=== PATIENT | female | born 1960 | race Hispanic/Latino ===

== ENCOUNTER 2018-03-16 07:20 | Day surgery (SDC) | payer OTHER ==
--- OUTSIDE RECORDS SUMMARY | 2018-03-16 07:27 | XMS REPORT | Clinical Summary ---
:1960 Author Organization [facility] Address [address] [place] [address] Care Team Providers Name Role Phone Chau Greer MD Primary Care Provider Allergies Active Allergy Reactions Severity Noted Date Comments Penicillins Other (See Comments) 05/20/2011 Swelling of tongue/throat Current Medications Prescription Sig. Disp. Refills Start Date End Date Status carvedilol (COREG) Take 6.25 mg 1 03/27/2016 Active 6.25 MG tablet by mouth 2 (two) times a day. glimepiride (AMARYL) 4 Take 4 mg by 1 04/22/2016 Active MG tablet mouth once daily. lisinopril-hydrochloro Take 1 tablet 1 03/27/2016 Active thiazide by mouth once (PRINZIDE,ZESTORETIC) daily. 20-12.5 mg per tablet metFORMIN XR Take 750 mg by 1 04/22/2016 Active (GLUCOPHAGE-XR) 750 MG mouth once 24 hr tablet daily. omeprazole (PriLOSEC) Take 20 mg by Active 20 MG capsule mouth daily. levothyroxine Take 1 tablet 09/09/2017 Active (SYNTHROID, LEVOXYL) by mouth 112 mcg tablet daily. levothyroxine Take 150 mcg 1 04/22/2016 09/30/2017 Discontinued (SYNTHROID, by mouth once LEVOTHROID) 150 MCG daily. tablet quinapril-hydrochlorot Take 1 tablet 2 02/09/2016 05/15/2017 Discontinued hiazide (ACCURETIC) by mouth once 20-12.5 mg per tablet daily. Active Problems Problem Noted Date High cholesterol 05/15/2017 Cirrhosis 05/17/2016 Screening for cancer 05/17/2016 Esophageal varices 05/17/2016 Vitamin D deficiency 05/17/2016 Diabetes mellitus, type II 08/11/1996 Encounters Date Type Specialty Care Team Description 09/30/2017 Office Visit Gastroenterology Caty Patel Cirrhosis of liver with ascites, unspecified hepatic cirrhosis type (Primary Dx); JORGE L Lenz ARMAS (nonalcoholic steatohepatitis); Esophageal varices without bleeding, unspecified esophageal varices type; Cancer screening; Type 2 diabetes mellitus with complication, unspecified skilled nursing insulin use status; Vitamin D deficiency; Screening for cancer 09/10/2017 Telephone Gastroenterology Arlet Soliz, MALU 05/15/2017 Office Visit Gastroenterology Brent Gloria MD Esophageal varices without bleeding, unspecified esophageal varices type (Primary Dx); Liver cirrhosis secondary to ARMAS; Cirrhosis of liver without ascites, unspecified hepatic cirrhosis type; Screening for cancer; Vitamin D deficiency after 03/15/2017 Immunizations Name Dates Previously Given Next Due FLUCELVAX QUAD PF (0.5mL syringe) 05/17/2016 Family History Medical History Relation Name Comments Diabetes Father Breast cancer Maternal Grandmother Relation Name Status Comments Father Maternal Grandmother Social History Tobacco Use Types Packs/Day Years Used Date Never Smoker Smokeless Tobacco: Never Used Alcohol Use Drinks/Week oz/Week Comments No Sex Assigned at Date Recorded Not on file Last Filed Vital Signs Vital Sign Reading Time Taken Blood Pressure 123/69 09/30/2017 1:03 PM [employer]ACING CUTTING MACHINE OPERATOR Pulse 70 09/30/2017 1:03 PM FACING CUTTING MACHINE OPERATOR Temperature 37.1 C (98.7 F) 09/30/2017 1:03 PM FACING CUTTING MACHINE OPERATOR Respiratory Rate 18 09/30/2017 1:03 PM FACING CUTTING MACHINE OPERATOR Oxygen Saturation 98% 09/30/2017 1:03 PM FACING CUTTING MACHINE OPERATOR Inhaled Oxygen Concentration - - Weight 107 kg (235 lb 12.8 oz) 09/30/2017 1:03 PM FACING CUTTING MACHINE OPERATOR Height 167.6 cm (5' 6") 09/30/2017 1:03 PM FACING CUTTING MACHINE OPERATOR Body Mass Index 38.06 09/30/2017 1:03 PM FACING CUTTING MACHINE OPERATOR Plan of Treatment Health Maintenance Due Date Last Done Comments DIABETIC FOOT EXAM 1968 DIABETIC RETINAL EYE EXAM 1968 CERVICAL CANCER SCREENING 1979 BREAST CANCER SCREENING 2008 COLON CANCER SCREENING 2008 SHINGRIX VACCINE (#1) 2008 INFLUENZA VACCINE 03/11/2018 05/17/2016, 09/16/2013, 06/30/2012 Procedures Procedure Name Priority Date/Time Associated Comments Diagnosis PLATELET ESTIMATION Routine 09/30/2017 10:20 Results for this (NOT ORDERABLE) AM FACING CUTTING MACHINE OPERATOR procedure are in the results section. SPECIMEN INTEGRITY Routine 09/30/2017 10:20 Results for this COMPROMISED AM FACING CUTTING MACHINE OPERATOR procedure are in the results section. PROTHROMBIN TIME WITH Routine 09/30/2017 10:20 Esophageal varices Results for this INR AM FACING CUTTING MACHINE OPERATOR without bleeding, procedure are in unspecified the results esophageal varices section. type Liver cirrhosis secondary to ARMAS IMMUNOGLOBULIN G, A, M Routine 09/30/2017 10:20 Esophageal varices Results for this AM FACING CUTTING MACHINE OPERATOR without bleeding, procedure are in unspecified the results esophageal varices section. type Liver cirrhosis secondary to ARMAS COMPREHENSIVE METABOLIC Routine 09/30/2017 10:20 Esophageal varices Results for this PANEL AM FACING CUTTING MACHINE OPERATOR without bleeding, procedure are in unspecified the results esophageal varices section. type Liver cirrhosis secondary to ARMAS CBC WITH PLATELET AND Routine 09/30/2017 10:20 Esophageal varices Results for this DIFFERENTIAL AM FACING CUTTING MACHINE OPERATOR without bleeding, procedure are in unspecified the results esophageal varices section. type Liver cirrhosis secondary to ARMAS ALPHA FETOPROTEIN Routine 09/30/2017 10:20 Esophageal varices Results for this AM FACING CUTTING MACHINE OPERATOR without bleeding, procedure are in unspecified the results esophageal varices section. type Liver cirrhosis secondary to ARMAS after 03/15/2017 Results Platelet estimation (09/30/2017 10:20 AM) Platelet estimate DECREASED (A) ADEQUATE [facility] Narrative Performed At FASTING: UNKNOWN [facility] Resulting Agency Comment Performing Organization Information: Site ID: [id number] Name: [facility] Address: [address] [place] [phone] Director: Vanesa Banda MD Performing Organization Address City/State/Zipcode Phone Number [employer] [address] [address] SPECIMEN INTEGRITY COMPROMISED (09/30/2017 10:20 AM) Specimen integrity [facility] compromised Comment: II Whole blood, unspun or partially spun gel barrier tube was received more than 6 hours since collection. A false elevation of K, Phos and LD as well as a false decrease in glucose may occur due to prolonged contact with red cells. Narrative Performed At FASTING: UNKNOWN [facility] Resulting Agency Comment Performing Organization Information: Site ID: [id number] Name: [facility] Lab Address: [address] [place] [phone] Director: Dr. Juan Gil Performing Organization Address [facility] Phone Number MINDY [employer] [address] Alpha fetoprotein (09/30/2017 10:20 AM) Alpha fetoprotein 11.8 (H) ng/mL [facility] Comment: II Reference Range: <6.1 The use of AFP as a tumor marker in females is not recommended. This test was performed using the Philip Kenmare chemiluminescent method. Values obtained from different assay methods cannot be used interchangeably. AFP levels, regardless of value, should not be interpreted as absolute evidence of the presence or absence of disease. Specimen Blood Narrative Performed At FASTING: UNKNOWN [facility] Resulting Agency Comment Performing Organization Information: Site ID: [id number] Name: [facility] Lab Address: [address] [place] [phone] Director: Dr. Juan Gil Performing Organization Address [facility] Phone Number MINDY [employer] [address] Prothrombin time with INR (09/30/2017 10:20 AM) INR 1.4 (H) [facility] Comment: Reference Range 0.9-1.1 Moderate-intensity Warfarin Therapy 2.0-3.0 Higher-intensity Warfarin Therapy 3.0-4.0 Prothrombin time 14.6 (H) 9.0 - 11.5 sec [facility] Comment: For more information on this test, go to: http://education.Balaya/faq/JMC638 Specimen Blood Narrative Performed At FASTING: UNKNOWN [facility] Resulting Agency Comment Performing Organization Information: Site ID: [id number] Name: [facility] Address: [address] [place] [phone] Director: Vanesa Banda MD Performing Organization Address [facility] Phone Number [employer] [address] [address] CBC with platelet and differential (09/30/2017 10:20 AM) WBC 4.5 3.8 - 10.8 Thousand/uL [employer] RBC 2.56 (L) 3.80 - 5.10 Million/uL [facility] HGB 8.8 (L) 11.7 - 15.5 g/dL [facility] HCT 26.1 (L) 35.0 - 45.0 % [facility] MCV 102.0 (H) 80.0 - 100.0 fL [facility] MCH 34.4 (H) 27.0 - 33.0 pg [facility] MCHC 33.7 32.0 - 36.0 g/dL [facility] RDW 16.1 (H) 11.0 - 15.0 % [facility] Platelet count 70 (L) 140 - 400 Thousand/uL [employer] MPV 11.3 7.5 - 12.5 fL [facility] Neutrophils, absolute 2,799 1,500 - 7,800 cells/uL [facility] Lymphocytes, absolute 1,224 850 - 3,900 cells/uL [facility] Monocytes, absolute 311 200 - 950 cells/uL [facility] Eosinophils, absolute 149 15 - 500 cells/uL [facility] Basophils, absolute 18 0 - 200 cells/uL [facility] Neutrophils 62.2 % [facility] Lymphocytes 27.2 % [facility] Monocytes 6.9 % [facility] Eosinophils 3.3 % [facility] Basophils + RC 0.4 % [facility] Specimen Blood Narrative Performed At FASTING: UNKNOWN [facility] Resulting Agency Comment Performing Organization Information: Site ID: [id number] Name: [facility] Address: [address] [place] [phone] Director: Vanesa Banda MD Performing Organization Address City/State/Zipcode Phone Number [employer] [address] [address] Immunoglobulin G, A, M (09/30/2017 10:20 AM) IgA 712 (H) 81 - 463 mg/dL [facility] IgG 1,695 (H) 694 - 1,618 mg/dL [facility] IgM 97 48 - 271 mg/dL [facility] Specimen Blood Narrative Performed At FASTING: UNKNOWN [facility] Resulting Agency Comment Performing Organization Information: Site ID: [id number] Name: [facility] Address: [address] [place] [phone] Director: Vanesa Banda MD Performing Organization Address [facility] Phone Number [employer] [address] [address] Comprehensive metabolic panel (09/30/2017 10:20 AM) Glucose 96 65 - 99 mg/dL [facility] Comment: [facility] Fasting reference interval BUN, whole blood 23 7 - 25 mg/dL [facility] Creatinine 0.90 0.50 - 1.05 [facility] Comment: mg/dL [facility] For patients >49 years of age, the reference limit for Creatinine is approximately 13% higher for people identified as -Icelandic. EGFR Non-Afr. Icelandic 70 > OR=60 [facility] mL/min/1.73m2 [facility] EGFR 81 > OR=60 [facility] mL/min/1.73m2 [facility] BUN/creatinine ratio NOT APPLICABLE 6 - 22 (calc) [facility] Sodium 138 135 - 146 mmol/L [facility] Potassium 4.1 3.5 - 5.3 mmol/L [facility] Chloride 105 98 - 110 mmol/L [facility] CO2 21 20 - 31 mmol/L [facility] Calcium 8.7 8.6 - 10.4 mg/dL [facility] Protein 6.8 6.1 - 8.1 g/dL [facility] Albumin, S 3.3 (L) 3.6 - 5.1 g/dL [facility] Globulin, total 3.5 1.9 - 3.7 g/dL [facility] (calc) [facility] Albumin/globulin ratio 0.9 (L) 1.0 - 2.5 (calc) [facility] Total bilirubin 1.1 0.2 - 1.2 mg/dL [facility] Alkaline phosphatase 59 33 - 130 U/L [facility] AST 37 (H) 10 - 35 U/L [facility] ALT 15 6 - 29 U/L [facility] Specimen Blood Narrative Performed At FASTING: UNKNOWN [facility] Resulting Agency Comment Performing Organization Information: Site ID: [id number] Name: [facility] Address: [address] [place] [phone] Director: Vanesa Banda MD Performing Organization Address City/[facility]/Zipcode Phone Number [employer] [address] [address] after 03/15/2017 Insurance Payer Benefit Plan / Group Subscriber ID Type Phone Address TAMICA DAVEY PPO OPEN CHOICE xxxxxxxxxx PPO Home: [phone] [phone] [address] NICOLE TAVERAS [employer] Self 1960 Home: [address] [phone] [address]
[2018-03-16] MEDS ORDERED: NA CHLORIDE 0.9% 1,000 ML ONE (07:34)
[2018-03-16] MEDS ORDERED: LIDOCAINE 1% MPF 5 ML VIAL ONE (08:53)
[2018-03-16] MEDS ORDERED: PROPOFOL 200 MG/20 ML VIAL IV ONE (08:53)
--- NOTE | 2018-03-16 09:23 | ENDO RPT ---
[address], [address] EGD PROCEDURE REPORT EXAM DATE: 03/16/2018 PATIENT NAME: Zeinab Taveras MR#: [id number] BIRTHDATE: 1960 ATTENDING: Adelso James Dr STATUS: outpatient TIMBER SPOTTER: Norma Tejeda, Kathia Koenig RN, and Ezio Tejeda INDICATIONS: The patient is a 57 yr old Female here for an EGD due to esophageal varices PROCEDURE PERFORMED: EGD with biopsy MEDICATIONS: Per Anesthesia. TOPICAL ANESTHETIC: none CONSENT: The patient understands the risks and benefits of the procedure and understands that these risks include, but are not limited to: sedation, allergic reaction, infection, perforation and/or bleeding. Alternative means of evaluation and treatment include, among others: physical exam, x-rays, and/or surgical intervention. The patient elects to proceed with this endoscopic procedure. DESCRIPTION OF PROCEDURE: During intra-op preparation period all mechanical medical equipment was checked for proper function. Hand hygiene and appropriate measures for infection prevention was taken. Procedure, possible complications, and alternatives including but not limited to the possibility of bleeding, perforation, tear, infection, sepsis, need for surgery, need for blood transfusion, and anesthesia related complications were explained to the patient. After the risks, benefits and alternatives of the procedure were thoroughly explained, Informed consent was verified, confirmed and timeout was successfully executed by the treatment team. The patient was placed in the left lateral position. The patient was anesthetized with topical anesthesia. Through the anesthetized oropharyngeal area, the scope was passed without any difficulty. The [id number] ([id number]) endoscope was introduced through the mouth and advanced to the third portion of the duodenum. Retroflexed views revealed no abnormalities. The gastroscope was then slowly withdrawn and removed. Grade III varices were found in the lower esophagus. Esophageal banding was performed. Gastropathy was found in the body of the stomach. Mild gastritis was found in the antrum. With jumbo forceps, a biopsy was obtained and sent to pathology. An erosion was found in the antrum. An ulcer was found in the antrum. Duodenitis was found in the bulb and descending duodenum. Multiple ulcers were found in the bulb of the duodenum. ADVERSE EVENTS: There were no complications. IMPRESSIONS: 1. Grade III varices in the lower esophagus, s/p banding X4 2. Portal hypertensive gastropathy in the body of the stomach 3. Mild gastritis in the antrum, s/p biopsy 4. Erosion in the antrum 5. 2 mm ulcer with surrounding edema in the antrum 6. Duodenitis in the bulb and descending duodenum 7. Multiple ( 10) small 2-3 mm clean-basede ulcers in the bulb of the duodenum RECOMMENDATIONS: 1. await biopsy results 2. acid suppression therapy 3. Propanolol REPEAT EXAM: Return in 3 week(s) for EGD. Adelso James Dr eSigned: Adelso James Dr 03/16/2018 9:23 AM cc: Chau Greer CPT CODES: ICD9 CODES: PATIENT NAME: Zeinab Taveras MR#: [id number]
== END 2018-03-16 09:57 | disposition home or self-care (01) ==
LOC: OR 07:20
PROVIDERS: ATTEND Internal Medicine Gastroenterology
PROC: 0DB68ZX Excision of Stomach, Via Natural or Artificial Opening Endoscopic, Diagnostic (ICD-10-PCS; 2018-03-16)
PROC: 06L38CZ Occlusion of Esophageal Vein with Extraluminal Device, Via Natural or Artificial Opening Endoscopic (ICD-10-PCS; principal; 2018-03-16 09:15)
DX: I85.00 Esophageal varices without bleeding (principal); K74.60 Unspecified cirrhosis of liver; E11.9 Type 2 diabetes mellitus without complications; Z79.84 Long term (current) use of oral hypoglycemic drugs; E03.9 Hypothyroidism, unspecified; K76.6 Portal hypertension; K31.89 Other diseases of stomach and duodenum; K29.00 Acute gastritis without bleeding; K25.9 Gastric ulcer, unspecified as acute or chronic, without hemorrhage or perforation; K29.80 Duodenitis without bleeding; K26.9 Duodenal ulcer, unspecified as acute or chronic, without hemorrhage or perforation
CPT/HCPCS: 82962; 88305; 88312; J7030

== ENCOUNTER 2018-07-21 07:30 | Day surgery (SDC) | payer OTHER ==
--- OUTSIDE RECORDS SUMMARY | 2018-07-21 07:32 | XMS REPORT | Clinical Summary ---
:1960 Author Organization [facility] Address [address] [place] [address] Care Team Providers Name Role Phone Chau Greer MD Primary Care Provider Allergies Active Allergy Reactions Severity Noted Date Comments Penicillins Other (See Comments) 05/20/2011 Swelling of tongue/throat Medications Medication Sig Dispensed Refills Start Date End Date Status carvedilol (COREG) Take 6.25 mg 1 03/27/2016 Active 6.25 MG tablet by mouth 2 (two) times a day. glimepiride (AMARYL) Take 4 mg by 1 04/22/2016 Active 4 MG tablet mouth once daily. lisinopril-hydrochlo Take 1 tablet 1 03/27/2016 Active rothiazide by mouth once (PRINZIDE,ZESTORETIC daily. ) 20-12.5 mg per tablet metFORMIN XR Take 750 mg 1 04/22/2016 Active (GLUCOPHAGE-XR) 750 by mouth once MG 24 hr tablet daily. omeprazole Take 20 mg by 0 Active (PriLOSEC) 20 MG mouth daily. capsule levothyroxine Take 1 tablet 0 09/09/2017 Active (SYNTHROID, LEVOXYL) by mouth 112 mcg tablet daily. levothyroxine Take 150 mcg 1 04/22/2016 09/30/2017 Discontinued (SYNTHROID, by mouth once LEVOTHROID) 150 MCG daily. tablet Active Problems Problem Noted Date High cholesterol 05/15/2017 Cirrhosis 05/17/2016 Screening for cancer 05/17/2016 Esophageal varices 05/17/2016 Vitamin D deficiency 05/17/2016 Diabetes mellitus, type II 08/11/1996 Encounters Date Type Specialty Care Team Description 06/26/2018 Telephone Hepatology Nellie JeonghelMADONNA 06/15/2018 Orders Only Hepatology Brent Gloria MD 05/04/2018 Office Visit Hepatology Brent Gloria MD Cirrhosis of liver without ascites, unspecified hepatic cirrhosis type (Primary Dx); Abnormal LFTs; Obesity, unspecified classification, unspecified obesity type, unspecified whether serious comorbidity present 09/30/2017 Office Visit Gastroenterology Caty Patel Cirrhosis of liver with ascites, unspecified hepatic cirrhosis type (Primary Dx); JORGE L Lenz ARMAS (nonalcoholic steatohepatitis); Esophageal varices without bleeding, unspecified esophageal varices type; Cancer screening; Type 2 diabetes mellitus with complication, unspecified penitentiary insulin use status; Vitamin D deficiency; Screening for cancer 09/10/2017 Telephone Gastroenterology Arlet Soliz RN after 07/20/2017 Immunizations Name Dates Previously Given Next Due FLUCELVAX QUAD PF (0.5mL syringe) 05/17/2016 Family History Medical History Relation Name Comments Diabetes Father Breast cancer Maternal Grandmother Relation Name Status Comments Father Maternal Grandmother Social History Tobacco Use Types Packs/Day Years Used Date Never Smoker Smokeless Tobacco: Never Used Alcohol Use Drinks/Week oz/Week Comments No Sex Assigned at Date Recorded Not on file Job Start Date Occupation Industry Not on file Not on file Not on file Travel History Travel Start Travel End No recent travel history available. Last Filed Vital Signs Vital Sign Reading Time Taken Blood Pressure 169/76 05/04/2018 1:22 PM CDT Pulse 67 05/04/2018 1:22 PM CDT Temperature 37.1 C (98.7 F) 09/30/2017 1:03 PM ELEMENTARY MATH TUTOR Respiratory Rate 18 09/30/2017 1:03 PM ELEMENTARY MATH TUTOR Oxygen Saturation 98% 09/30/2017 1:03 PM ELEMENTARY MATH TUTOR Inhaled Oxygen Concentration - - Weight 111 kg (245 lb) 05/04/2018 1:22 PM CDT Height 167.6 cm (5' 6") 05/04/2018 1:22 PM CDT Body Mass Index 39.54 05/04/2018 1:22 PM CDT Plan of Treatment Date Type Specialty Care Team Description 07/30/2018 Office Visit Hepatology Brent Gloria MD [address] [facility] [address] [place] [address] Health Maintenance Due Date Last Done Comments DIABETIC RETINAL EYE EXAM 1960 DIABETIC FOOT EXAM 1968 HEPATITIS B VACCINES (1 of 3 - 1977 Risk 3-dose series) CERVICAL CANCER SCREENING 1979 BREAST CANCER SCREENING 2008 COLON CANCER SCREENING 2008 SHINGRIX VACCINE (1 of 2) 2008 INFLUENZA VACCINE 03/11/2018 05/17/2016, 09/16/2013, 06/30/2012 IPV VACCINES Aged Out No longer eligible based on patient's age to complete this topic MENINGOCOCCAL VACCINE Aged Out No longer eligible based on patient's age to complete this topic Procedures Procedure Name Priority Date/Time Associated Comments Diagnosis US ABDOMEN COMPLETE Routine 06/02/2018 PLATELET ESTIMATION Routine 09/30/2017 10:20 Results for this (NOT ORDERABLE) AM ELEMENTARY MATH TUTOR procedure are in the results section. SPECIMEN INTEGRITY Routine 09/30/2017 10:20 Results for this COMPROMISED AM ELEMENTARY MATH TUTOR procedure are in the results section. PROTHROMBIN TIME WITH Routine 09/30/2017 10:20 Esophageal varices Results for this INR AM ELEMENTARY MATH TUTOR without bleeding, procedure are in unspecified the results esophageal varices section. type Liver cirrhosis secondary to ARMAS IMMUNOGLOBULIN G, A, M Routine 09/30/2017 10:20 Esophageal varices Results for this AM ELEMENTARY MATH TUTOR without bleeding, procedure are in unspecified the results esophageal varices section. type Liver cirrhosis secondary to ARMAS COMPREHENSIVE METABOLIC Routine 09/30/2017 10:20 Esophageal varices Results for this PANEL AM ELEMENTARY MATH TUTOR without bleeding, procedure are in unspecified the results esophageal varices section. type Liver cirrhosis secondary to ARMAS CBC WITH PLATELET AND Routine 09/30/2017 10:20 Esophageal varices Results for this DIFFERENTIAL AM ELEMENTARY MATH TUTOR without bleeding, procedure are in unspecified the results esophageal varices section. type Liver cirrhosis secondary to ARMAS ALPHA FETOPROTEIN Routine 09/30/2017 10:20 Esophageal varices Results for this AM ELEMENTARY MATH TUTOR without bleeding, procedure are in unspecified the results esophageal varices section. type Liver cirrhosis secondary to ARMAS after 07/20/2017 Results US Abdomen Complete (06/02/2018) Narrative Performed At Platelet estimation (09/30/2017 10:20 AM ELEMENTARY MATH TUTOR) Platelet estimate DECREASED (A) ADEQUATE [employer] [place] Narrative Performed At FASTING: UNKNOWN [facility] Resulting Agency Comment Performing Organization Information: Site ID: [id number] Name: [facility] Address: [address] [place] [address] Director: Vanesa Banda MD Performing Organization Address [facility] Cent[facility] Phone Number MINDY CLEARY [place] [address] [place] [address] SPECIMEN INTEGRITY COMPROMISED (09/30/2017 10:20 AM ELEMENTARY MATH TUTOR) Specimen integrity [employer] [facility] compromised Comment: II Whole blood, unspun or partially spun gel barrier tube was received more than 6 hours since collection. A false elevation of K, Phos and LD as well as a false decrease in glucose may occur due to prolonged contact with red cells. Narrative Performed At FASTING: UNKNOWN [facility] Resulting Agency Comment Performing Organization Information: Site ID: [id number] [facility] Address: [address] [place] [id number] Director: Dr. Juan Gil Performing Organization Address [facility] Phone Number [facility] [employer] [address] Alpha fetoprotein (09/30/2017 10:20 AM ELEMENTARY MATH TUTOR) Alpha fetoprotein 11.8 (H) ng/mL [facility] Comment: II Reference Range: <6.1 The use of AFP as a tumor marker in females is not recommended. This test was performed using the Philip Anusha chemiluminescent method. Values obtained from different assay methods cannot be used interchangeably. AFP levels, regardless of value, should not be interpreted as absolute evidence of the presence or absence of disease. Specimen Blood Narrative Performed At FASTING: UNKNOWN [facility] Resulting Agency Comment Performing Organization Information: Site ID: [id number] Name: [facility] Address: [address] [place] [phone] Director: Dr. Juan Gil Performing Organization Address [facility] Centercout Phone Number [employer] [address] Prothrombin time with INR (09/30/2017 10:20 AM ELEMENTARY MATH TUTOR) INR 1.4 (H) [employer] [facility] [place] Comment: Reference Range 0.9-1.1 Moderate-intensity Warfarin Therapy 2.0-3.0 Higher-intensity Warfarin Therapy 3.0-4.0 Prothrombin time 14.6 (H) 9.0 - 11.5 sec [employer] [facility] [place] Comment: For more information on this test, go to: http://education.Redfin/faq/BOM384 Specimen Blood Narrative Performed At FASTING: UNKNOWN [facility] Resulting Agency Comment Performing Organization Information: Site ID: [id number] Name: [facility] Address: [address] [place] [phone] Director: Vanesa Banda MD Performing Organization Address City/State/Zipcode Phone Number [facility] [employer] [place] [address] [place] [address] CBC with platelet and differential (09/30/2017 10:20 AM ELEMENTARY MATH TUTOR) WBC 4.5 3.8 - 10.8 Thousand/uL [employer] [facility] [place] RBC 2.56 (L) 3.80 - 5.10 Million/uL [employer] [place] HGB 8.8 (L) 11.7 - 15.5 g/dL [employer] [facility] [place] HCT 26.1 (L) 35.0 - 45.0 % [employer] [place] MCV 102.0 (H) 80.0 - 100.0 fL [employer] [place] MCH 34.4 (H) 27.0 - 33.0 pg [employer] [place] MCHC 33.7 32.0 - 36.0 g/dL [employer] [place] RDW 16.1 (H) 11.0 - 15.0 % [employer] [place] Platelet count 70 (L) 140 - 400 Thousand/uL [employer] [place] MPV 11.3 7.5 - 12.5 fL [employer] [facility] [place] Neutrophils, absolute 2,799 1,500 - 7,800 cells/uL [employer] [facility] [place] Lymphocytes, absolute 1,224 850 - 3,900 cells/uL [employer] [place] Monocytes, absolute 311 200 - 950 cells/uL [employer] [facility] [place] Eosinophils, absolute 149 15 - 500 cells/uL [employer] [place] Basophils, absolute 18 0 - 200 cells/uL [employer] [place] Neutrophils 62.2 % [employer] [place] Lymphocytes 27.2 % [employer] [place] Monocytes 6.9 % [employer] [facility] [place] Eosinophils 3.3 % [employer] [place] Basophils + RC 0.4 % [employer] [facility] [place] Specimen Blood Narrative Performed At FASTING: UNKNOWN [facility] Resulting Agency Comment Performing Organization Information: Site ID: [id number] Name: [facility] Address: [address] [place] [phone] Director: Vanesa Banda MD Performing Organization Address City/[facility]/Zipcode Phone Number [employer] [address] [address] Immunoglobulin G, A, M (09/30/2017 10:20 AM ELEMENTARY MATH TUTOR) IgA 712 (H) 81 - 463 mg/dL [employer] [facility] [place] IgG 1,695 (H) 694 - 1,618 mg/dL [employer] [facility] [place] IgM 97 48 - 271 mg/dL [employer] [facility] [place] Specimen Blood Narrative Performed At FASTING: UNKNOWN [facility] Resulting Agency Comment Performing Organization Information: Site ID: [id number] Name: [facility] Address: [address] [place] [phone] Director: Vanesa Banda MD Performing Organization Address [facility] Centercode Phone Number [employer] [address] [address] Comprehensive metabolic panel (09/30/2017 10:20 AM ELEMENTARY MATH TUTOR) Glucose 96 65 - 99 mg/dL [employer] Comment: [place] Fasting reference interval BUN, whole blood 23 7 - 25 mg/dL [facility] [place] Creatinine 0.90 0.50 - 1.05 [employer] Comment: mg/dL [place] For patients >49 years of age, the reference limit for Creatinine is approximately 13% higher for people identified as -Greenlandic. EGFR Non-Afr. [place]ic 70 > OR=60 [employer] [facility] mL/min/1.73m2 [place] EGFR 81 > OR=60 [facility] mL/min/1.73m2 [place] BUN/creatinine ratio NOT APPLICABLE 6 - 22 (calc) [employer] [facility] [place] Sodium 138 135 - 146 mmol/L [facility] [place] Potassium 4.1 3.5 - 5.3 mmol/L [facility] [place] Chloride 105 98 - 110 mmol/L [facility] [place] CO2 21 20 - 31 mmol/L [facility] [place] Calcium 8.7 8.6 - 10.4 mg/dL [facility] [place] Protein 6.8 6.1 - 8.1 g/dL [facility] [place] Albumin, S 3.3 (L) 3.6 - 5.1 g/dL [facility] [place] Globulin, total 3.5 1.9 - 3.7 g/dL [employer] [facility] (calc) [place] Albumin/globulin ratio 0.9 (L) 1.0 - 2.5 (calc) [facility] [place] Total bilirubin 1.1 0.2 - 1.2 mg/dL [facility] [place] Alkaline phosphatase 59 33 - 130 U/L [facility] [place] AST 37 (H) 10 - 35 U/L [facility] [place] ALT 15 6 - 29 U/L [facility] [place] Specimen Blood Narrative Performed At FASTING: UNKNOWN [facility] Resulting Agency Comment Performing Organization Information: Site ID: [id number] Name: [facility] Address: [address] [place] [address] Director: Vanesa Banda MD Performing Organization Address City/State/Zipcode Phone Number [employer] [place] [address] [place] [address] after 07/20/2017 Insurance Payer Benefit Plan / Group Subscriber ID Type Phone Address [employer]ET[employer] AET[employer] PPO OPEN CHOICE xxxxxxxxxx PPO Advance Directives Patient has advance care planning documents on file. For more information, please contact:Raymundo Russo[address] [place] [address]
[2018-07-21] MEDS ORDERED: NA CHLORIDE 0.9% 1,000 ML ONE (07:47)
[2018-07-21] MEDS ORDERED: LIDOCAINE 1% MPF 5 ML VIAL ONE (09:52)
[2018-07-21] MEDS ORDERED: PROPOFOL 200 MG/20 ML VIAL IV ONE ×2 (09:52)
--- NOTE | 2018-07-21 11:47 | ENDO RPT ---
[address], [address] EGD PROCEDURE REPORT EXAM DATE: 07/21/2018 PATIENT NAME: Zeinab Taveras MR#: [id number] BIRTHDATE: 1960 ATTENDING: Adelso James Dr STATUS: outpatient BACK SEAM STITCHER: Coty Lazaro RN and Norma Tejeda INDICATIONS: The patient is a 57 yr old Female here for an EGD due to surveillance PROCEDURE PERFORMED: EGD with biopsy and EGD with banding MEDICATIONS: Per Anesthesia. TOPICAL ANESTHETIC: none CONSENT: The patient understands the risks and benefits of the procedure and understands that these risks include, but are not limited to: sedation, allergic reaction, infection, perforation and/or bleeding. Alternative means of evaluation and treatment include, among others: physical exam, x-rays, and/or surgical intervention. The patient elects to proceed with this endoscopic procedure. DESCRIPTION OF PROCEDURE: During intra-op preparation period all mechanical medical equipment was checked for proper function. Hand hygiene and appropriate measures for infection prevention was taken. Procedure, possible complications, and alternatives including but not limited to the possibility of bleeding, perforation, tear, infection, sepsis, need for surgery, need for blood transfusion, and anesthesia related complications were explained to the patient. After the risks, benefits and alternatives of the procedure were thoroughly explained, Informed consent was verified, confirmed and timeout was successfully executed by the treatment team. The patient was placed in the left lateral position. The patient was anesthetized with topical anesthesia. Through the anesthetized oropharyngeal area, the scope was passed without any difficulty. The Pentax [id number] ([id number]) endoscope was introduced through the mouth and advanced to the second portion of the duodenum. Retroflexed views revealed no abnormalities. The gastroscope was then slowly withdrawn and removed. Four columns of grade II to III varices were found in the lower esophagus. Banding was performed X5. Portal hypertensive gastropathy was found in the body of the stomach. Moderate gastritis was found in the antrum. Multiple with surrounding edema were found in the antrum. Duodenitis was found in the bulb and descending duodenum. Multiple (6) small 2-4 mm clean-based ulcers in the bulb and descending duodenum. ADVERSE EVENTS: There were no complications. IMPRESSIONS: 1. Four columns of grade II to III varices in the lower esophagus, s/p banding X5 2. Portal hypertensive gastropathy in the body of the stomach 3. Moderate gastritis in the antrum, s/p biopsies 5. Duodenitis in the bulb and descending duodenum 6. Multiple (6) small 2-4 mm clean-based ulcers in the bulb and descending duodenum RECOMMENDATIONS: 1. await biopsy results 2. acid suppression therapy 3. Propanolol or Coreg REPEAT EXAM: Return in 1 month(s) for EGD. Adelso James Dr eSigned: Adelso James Dr 07/21/2018 10:15 AM cc: Chau Greer CPT CODES: ICD9 CODES: PATIENT NAME: Zeinab Taveras MR#: [id number]
== END 2018-07-21 10:45 | disposition home or self-care (01) ==
LOC: OR 07:30
PROVIDERS: ATTEND Internal Medicine Gastroenterology
PROC: 0W3P8ZZ Control Bleeding in Gastrointestinal Tract, Via Natural or Artificial Opening Endoscopic (ICD-10-PCS; 2018-07-21)
PROC: 0DB68ZX Excision of Stomach, Via Natural or Artificial Opening Endoscopic, Diagnostic (ICD-10-PCS; principal; 2018-07-21 09:30)
DX: K76.6 Portal hypertension (principal); K74.60 Unspecified cirrhosis of liver; E11.9 Type 2 diabetes mellitus without complications; Z79.84 Long term (current) use of oral hypoglycemic drugs; E03.9 Hypothyroidism, unspecified; Z88.0 Allergy status to penicillin; I85.10 Secondary esophageal varices without bleeding; K29.70 Gastritis, unspecified, without bleeding; K29.80 Duodenitis without bleeding; K26.9 Duodenal ulcer, unspecified as acute or chronic, without hemorrhage or perforation
CPT/HCPCS: 82962; 88305; 88312; J2704; J7030

== ENCOUNTER 2018-11-17 07:00 | Day surgery (SDC) | payer OTHER ==
--- OUTSIDE RECORDS SUMMARY | 2018-11-17 07:04 | XMS REPORT | Clinical Summary ---
:1960 Author Organization [facility] Address [address] [place] [address] Care Team Providers Name Role Phone Chau Greer MD Primary Care Provider Allergies Active Allergy Reactions Severity Noted Date Comments Penicillins Other (See Comments) 05/20/2011 Swelling of tongue/throat Medications Medication Sig Dispensed Refills Start Date End Date Status carvedilol (COREG) Take 6.25 mg by 1 03/27/2016 Active 6.25 MG tablet mouth 2 (two) times a day. glimepiride (AMARYL) 4 Take 4 mg by 1 04/22/2016 Active MG tablet mouth once daily. lisinopril-hydrochloro Take 1 tablet 1 03/27/2016 Active thiazide by mouth once (PRINZIDE,ZESTORETIC) daily. 20-12.5 mg per tablet metFORMIN XR Take 750 mg by 1 04/22/2016 Active (GLUCOPHAGE-XR) 750 MG mouth once 24 hr tablet daily. omeprazole (PriLOSEC) Take 20 mg by 0 Active 20 MG capsule mouth daily. levothyroxine Take 1 tablet 0 09/09/2017 Active (SYNTHROID, LEVOXYL) by mouth daily. 112 mcg tablet riFAXimin (XIFAXAN) Take 1 tablet 60 tablet 11 09/10/2018 10/10/2018 550 mg tablet (550 mg total) by mouth 2 (two) times a day for 30 days. Active Problems Problem Noted Date High cholesterol 05/15/2017 Cirrhosis 05/17/2016 Screening for cancer 05/17/2016 Esophageal varices 05/17/2016 Vitamin D deficiency 05/17/2016 Diabetes mellitus, type II 08/11/1996 Encounters Date Type Specialty Care Team Description 09/10/2018 Office Visit Hepatology Brent Gloria MD Cirrhosis of liver without ascites, unspecified hepatic cirrhosis type (HCC) (Primary Dx); Esophageal varices without bleeding, unspecified esophageal varices type (HCC); Other fatigue; Encephalopathy 07/22/2018 Documentation Hepatology Bettye Chester MA appointment reschedule (Provider inpatient, left multiple voicemails for patient to callback for reschedule.///CBR) 06/26/2018 Telephone Hepatology Jenni Jeong MA 06/15/2018 Orders Only Hepatology Brent Gloria MD 05/04/2018 Office Visit Hepatology Brent Gloria MD Cirrhosis of liver without ascites, unspecified hepatic cirrhosis type (Primary Dx); Abnormal LFTs; Obesity, unspecified classification, unspecified obesity type, unspecified whether serious comorbidity present after 11/16/2017 Immunizations Name Dates Previously Given Next Due [...] Vital Sign Reading Time Taken Blood Pressure 159/72 09/10/2018 10:50 AM [employer] Pulse 75 09/10/2018 10:50 AM [employer] Temperature - - Respiratory Rate - - Oxygen Saturation - - Inhaled Oxygen Concentration - - Weight 113 kg (248 lb 9.6 oz) 09/10/2018 10:50 AM [employer] Height 167.6 cm (5' 6") 09/10/2018 10:50 AM [employer] Body Mass Index 40.13 09/10/2018 10:50 AM [employer] Plan of Treatment Date Type Specialty Care Team Description 01/08/2019 Office Visit Hepatology Brent Gloria MD [address] [address] Health Maintenance Due Date Last Done Comments DIABETIC RETINAL EYE EXAM 1960 DIABETIC FOOT EXAM 1968 CERVICAL CANCER SCREENING 1979 BREAST CANCER SCREENING 2008 COLON CANCER SCREENING 2008 SHINGLES VACCINES (#1) 2008 INFLUENZA VACCINE 03/11/2019 05/17/2016 Procedures Procedure Name Priority Date/Time Associated Comments Diagnosis IMMUNOGLOBULIN G, A, M Routine 08/24/2018 9:01 Cirrhosis of liver Results for this AM [employer] without ascites, procedure are in unspecified hepatic the results cirrhosis type section. (HCC) Abnormal LFTs Obesity, unspecified classification, unspecified obesity type, unspecified whether serious comorbidity present ALPHA FETOPROTEIN Routine 08/24/2018 9:01 Cirrhosis of liver Results for this AM [employer] without ascites, procedure are in unspecified hepatic the results cirrhosis type section. (HCC) Abnormal LFTs Obesity, unspecified classification, unspecified obesity type, unspecified whether serious comorbidity present CBC WITH PLATELET AND Routine 08/24/2018 9:01 Cirrhosis of liver Results for this DIFFERENTIAL AM [employer] without ascites, procedure are in unspecified hepatic the results cirrhosis type section. (HCC) Abnormal LFTs Obesity, unspecified classification, unspecified obesity type, unspecified whether serious comorbidity present COMPREHENSIVE METABOLIC Routine 08/24/2018 9:01 Cirrhosis of liver Results for this PANEL AM [employer] without ascites, procedure are in unspecified hepatic the results cirrhosis type section. (HCC) Abnormal LFTs Obesity, unspecified classification, unspecified obesity type, unspecified whether serious comorbidity present US ABDOMEN COMPLETE Routine 06/02/2018 after 11/16/2017 Results Alpha fetoprotein (08/24/2018 9:01 AM [employer]) Alpha fetoprotein 12.2 (H) ng/mL [facility] Comment: II Reference Range: <6.1 The use of AFP as a tumor marker in females is not recommended. This test was performed using the [place] chemiluminescent method. Values obtained from different assay methods cannot be used interchangeably. AFP levels, regardless of value, should not be interpreted as absolute evidence of the presence or absence of disease. Specimen Blood Narrative Performed At FASTING:YES [facility] FASTING: YES Resulting Agency Comment Performing Organization Information: Site ID: [id number] Name: [facility] Address: [address] [place] [address] Director: Dr. Juan Gil Performing Organization Address City/State/Zipcode Phone Number MINDY GUILLEN [facility] [address] [place] [address] CBC with platelet and differential (08/24/2018 9:01 AM [employer]) WBC 3.2 (L) 3.8 - 10.8 [facility] Thousand/uL [place] RBC 3.02 (L) 3.80 - 5.10 [facility] Million/uL [place] HGB 10.8 (L) 11.7 - 15.5 g/dL [facility] HCT 30.8 (L) 35.0 - 45.0 % [facility] [place] MCV 102.0 (H) 80.0 - 100.0 fL [facility] [place] MCH 35.8 (H) 27.0 - 33.0 pg [facility] [place] MCHC 35.1 32.0 - 36.0 g/dL [facility] [place] RDW 15.4 (H) 11.0 - 15.0 % [facility] [place] Platelet count 50 (L) 140 - 400 [facility] Comment: Thousand/uL [place] Review of the peripheral smear reveals decreased numbers of platelets. MPV 12.2 7.5 - 12.5 fL [facility] Neutrophils, absolute 1,984 1,500 - 7,800 [facility] cells/uL [place] Lymphocytes, absolute 794 (L) 850 - 3,900 [facility] cells/uL [place] Monocytes, absolute 291 200 - 950 [facility] cells/uL [place] Eosinophils, absolute 112 15 - 500 cells/uL [facility] [place] Basophils, absolute 19 0 - 200 cells/uL [facility] [place] Neutrophils 62 % [facility] Lymphocytes 24.8 % [facility] Monocytes 9.1 % [facility] Eosinophils 3.5 % [facility] [place] Basophils + RC 0.6 % [facility] [place] Specimen Blood Narrative Performed At FASTING:YES [facility] FASTING: YES Resulting Agency Comment Performing Organization Information: Site ID: [id number] Name: [facility] Address: [address] [place] [phone] Director: Vanesa Banda Performing Organization Address City/State/Zipcode Phone Number MINDY GUILLEN [facility] [address] [address] Immunoglobulin G, A, M (08/24/2018 9:01 AM [employer]) IgA 818 (H) 81 - 463 mg/dL [facility] [place] IgG 1,795 (H) 694 - 1,618 mg/dL [facility] [place] IgM 103 48 - 271 mg/dL [facility] [place] Specimen Blood Narrative Performed At FASTING:YES [facility] FASTING: YES Resulting Agency Comment Performing Organization Information: Site ID: [id number] Name: [facility] Address: [address] [place] [phone] Director: Vanesa Banda Performing Organization Address City/State/Zipcode Phone Number MINDY [facility] [place] [address] [place] [address] Comprehensive metabolic panel (08/24/2018 9:01 AM [employer]) Glucose 91 65 - 99 mg/dL [facility] Comment: [place] Fasting reference interval BUN, whole blood 16 7 - 25 mg/dL [facility] [place] Creatinine 0.84 0.50 - 0.99 [facility] Comment: mg/dL [place] For patients >49 years of age, the reference limit for Creatinine is approximately 13% higher for people identified as -[place]i. EGFR Non-Afr. [place]i 76 > OR=60 [facility] mL/min/1.73m2 [place] EGFR 88 > OR=60 [facility] mL/min/1.73m2 [place] BUN/creatinine ratio NOT APPLICABLE 6 - 22 (calc) [facility] [place] Sodium 143 135 - 146 mmol/L [facility] [place] Potassium 4.2 3.5 - 5.3 mmol/L [facility] [place] Chloride 109 98 - 110 mmol/L [facility] [place] CO2 24 20 - 32 mmol/L [facility] [place] Calcium 9.1 8.6 - 10.4 mg/dL [facility] [place] Protein 7.2 6.1 - 8.1 g/dL [facility] [place] Albumin, S 3.5 (L) 3.6 - 5.1 g/dL [facility] [place] Globulin, total 3.7 1.9 - 3.7 g/dL [facility] (calc) [place] Albumin/globulin ratio 0.9 (L) 1.0 - 2.5 (calc) [facility] [place] Total bilirubin 1.8 (H) 0.2 - 1.2 mg/dL [facility] [place] Alkaline phosphatase 66 33 - 130 U/L [facility] [place] AST 49 (H) 10 - 35 U/L [facility] [place] ALT 23 6 - 29 U/L [facility] [place] Specimen Blood Narrative Performed At FASTING:YES [facility] FASTING: YES Resulting Agency Comment Performing Organization Information: Site ID: [id number] Name: [facility] Address: [address] [place] [address] [place] [phone] Director: Vanesa Banda Performing Organization Address City/State/Zipcode Phone Number [facility] [place] [address] [place] [phone] US Abdomen Complete (06/02/2018) Narrative Performed At after 11/16/2017 Insurance Payer Benefit Plan / Group Subscriber ID Type Phone Address AETNA AETNA PPO OPEN CHOICE xxxxxxxxxx PPO Zeinab Taveras [employer] Self 1960 [id number] (Home) [place] [address] Advance Directives Patient has advance care planning documents on file. For more information, please contact:Raymundo Russo[address] [address]
[2018-11-17] MEDS ORDERED: NA CHLORIDE 0.9% 1,000 ML ONE (07:25)
[2018-11-17] MEDS ORDERED: PROPOFOL 200 MG/20 ML VIAL IV ONE ×2 (08:49→09:40)
[2018-11-17] MEDS ORDERED: LIDOCAINE 1% MPF 5 ML VIAL ONE (08:49)
--- NOTE | 2018-11-17 09:21 | ENDO RPT ---
[address], [address] EGD PROCEDURE REPORT EXAM DATE: 11/17/2018 PATIENT NAME: Zeinab Taveras MR#: [id number] BIRTHDATE: 1960 ATTENDING: Adelso James Dr STATUS: outpatient FILLING AND PACKING SUPERVISOR: Stephanie Tejeda and Gema Tesfaye RN INDICATIONS: The patient is a 58 yr old Female here for an EGD due to surveillance PROCEDURE PERFORMED: EGD with banding MEDICATIONS: Per Anesthesia. TOPICAL ANESTHETIC: none CONSENT: The patient understands the risks and benefits of the procedure and understands that these risks include, but are not limited to: sedation, allergic reaction, infection, perforation and/or bleeding. Alternative means of evaluation and treatment include, among others: physical exam, x-rays, and/or surgical intervention. The patient elects to proceed with this endoscopic procedure. DESCRIPTION OF PROCEDURE: During intra-op preparation period all mechanical medical equipment was checked for proper function. Hand hygiene and appropriate measures for infection prevention was taken. Procedure, possible complications, and alternatives including but not limited to the possibility of bleeding, perforation, tear, infection, sepsis, need for surgery, need for blood transfusion, and anesthesia related complications were explained to the patient. After the risks, benefits and alternatives of the procedure were thoroughly explained, Informed consent was verified, confirmed and timeout was successfully executed by the treatment team. The patient was placed in the left lateral position. The patient was anesthetized with topical anesthesia. Through the anesthetized oropharyngeal area, the scope was passed without any difficulty. The Pentax EG-2990i ([id number]) endoscope was introduced through the mouth and advanced to the second portion of the duodenum. Retroflexed views revealed no abnormalities. The gastroscope was then slowly withdrawn and removed. Grade II varices were found in the lower esophagus. Esophageal banding was performed. Gastropathy was found in the body of the stomach. Multiple erosions were found in the antrum. Duodenitis was found in the bulb of the duodenum. An ulcer was found in the bulb of the duodenum. ADVERSE EVENTS: There were no complications. IMPRESSIONS: 1. Four colums of grade II > III varices in the lower esophagus, s/p banding X4 2. Portal hypertensive gastropathy in the body of the stomach 3. Multiple (7) erosions in the antrum 4. Duodenitis in the bulb of the duodenum 5. 2 mm clean-based ulcer in the bulb of the duodenum RECOMMENDATIONS: 1. await biopsy results 2. acid suppression therapy REPEAT EXAM: Adelso James Dr eSigned: Adelso James Dr 11/17/2018 9:20 AM cc: Chau Greer CPT CODES: ICD9 CODES: PATIENT NAME: Zeinab Taveras MR#: [id number]
== END 2018-11-17 09:55 | disposition home or self-care (01) ==
LOC: OR 07:00
PROVIDERS: ATTEND Internal Medicine Gastroenterology
PROC: 06L38CZ Occlusion of Esophageal Vein with Extraluminal Device, Via Natural or Artificial Opening Endoscopic (ICD-10-PCS; principal; 2018-11-17 09:30)
DX: I85.00 Esophageal varices without bleeding (principal); K76.6 Portal hypertension; K31.89 Other diseases of stomach and duodenum; K29.80 Duodenitis without bleeding; K25.9 Gastric ulcer, unspecified as acute or chronic, without hemorrhage or perforation; E03.9 Hypothyroidism, unspecified; E11.9 Type 2 diabetes mellitus without complications; K74.60 Unspecified cirrhosis of liver; Z79.84 Long term (current) use of oral hypoglycemic drugs; Z79.899 Other long term (current) drug therapy
CPT/HCPCS: 82962; J2704; J7030

== ENCOUNTER 2019-05-25 07:46 | Day surgery (SDC) | payer OTHER ==
[2019-05-25] MEDS ORDERED: NA CHLORIDE 0.9% 1,000 ML ONE (08:23)
[2019-05-25] MEDS ORDERED: PROPOFOL 200 MG/20 ML VIAL IV ONE (10:50)
--- NOTE | 2019-05-25 11:32 | ENDO RPT ---
[address], [address] EGD PROCEDURE REPORT EXAM DATE: 05/25/2019 PATIENT NAME: Zeinab Taveras MR#: [id number] BIRTHDATE: 1960 ATTENDING: Adelso James Dr STATUS: outpatient CLINICAL INVESTIGATOR: Stephanie Tejeda, Heather Pozo RN, and Coty Lazaro RN INDICATIONS: The patient is a 58 yr old Female here for an EGD due to surveillance PROCEDURE PERFORMED: EGD with banding MEDICATIONS: Per Anesthesia. TOPICAL ANESTHETIC: none CONSENT: The patient understands the risks and benefits of the procedure and understands that these risks include, but are not limited to: sedation, allergic reaction, infection, perforation and/or bleeding. Alternative means of evaluation and treatment include, among others: physical exam, x-rays, and/or surgical intervention. The patient elects to proceed with this endoscopic procedure. DESCRIPTION OF PROCEDURE: During intra-op preparation period all mechanical medical equipment was checked for proper function. Hand hygiene and appropriate measures for infection prevention was taken. Procedure, possible complications, and alternatives including but not limited to the possibility of bleeding, perforation, tear, infection, sepsis, need for surgery, need for blood transfusion, and anesthesia related complications were explained to the patient. After the risks, benefits and alternatives of the procedure were thoroughly explained, Informed consent was verified, confirmed and timeout was successfully executed by the treatment team. The patient was placed in the left lateral position. The patient was anesthetized with topical anesthesia. Through the anesthetized oropharyngeal area, the scope was passed without any difficulty. The EG-2990i ([id number]) and Pentax EG-2990i ([id number]) endoscope was introduced through the mouth and advanced to the second portion of the duodenum. Retroflexed views revealed a small hiatal hernia. The gastroscope was then slowly withdrawn and removed. Grade II varices were found in the lower esophagus. Esophageal banding was performed. Gastropathy was found in the body of the stomach. Mild gastritis was found in the antrum. Multiple erosions were found in the antrum. ADVERSE EVENTS: bleeding from pharynx with suctioning 05/25/2019 11:28 AM and then hypoxemia 05/25/2019 to O2 saturation 10% - quickly recovered by anesthesia with ambu ventilation and LMA placement IMPRESSIONS: 1. Three columns of grade II varices in the lower esophagus, s/p banding X2 2. Portal hypertensive gastropathy in the body of the stomach 3. Mild gastritis in the antrum 4. Multiple ( 7) erosions in the antrum RECOMMENDATIONS: 1. acid suppression therapy 2. Propanolol or Coreg REPEAT EXAM: Adelso James Dr eSigned: Adelso James Dr 05/25/2019 11:32 AM cc: Chau Greer CPT CODES: ICD9 CODES: PATIENT NAME: Zeinab Taveras MR#: [id number]
--- NOTE | 2019-05-25 11:33 | ENDO RPT ---
[address], [address] EGD PROCEDURE REPORT EXAM DATE: 05/25/2019 PATIENT NAME: Zeinab Taveras MR#: [id number] BIRTHDATE: 1960 ATTENDING: Adelso James Dr STATUS: outpatient TEAM LEAD: Stephanie Tejeda, Heather Pozo RN, and Coty Lazaro RN INDICATIONS: The patient is a 58 yr old Female here for an EGD due to esophageal varices surveillance PROCEDURE PERFORMED: EGD with banding MEDICATIONS: Per Anesthesia. TOPICAL ANESTHETIC: none CONSENT: The patient understands the risks and benefits of the procedure and understands that these risks include, but are not limited to: sedation, allergic reaction, infection, perforation and/or bleeding. Alternative means of evaluation and treatment include, among others: physical exam, x-rays, and/or surgical intervention. The patient elects to proceed with this endoscopic procedure. DESCRIPTION OF PROCEDURE: During intra-op preparation period all mechanical medical equipment was checked for proper function. Hand hygiene and appropriate measures for infection prevention was taken. Procedure, possible complications, and alternatives including but not limited to the possibility of bleeding, perforation, tear, infection, sepsis, need for surgery, need for blood transfusion, and anesthesia related complications were explained to the patient. After the risks, benefits and alternatives of the procedure were thoroughly explained, Informed consent was verified, confirmed and timeout was successfully executed by the treatment team. The patient was placed in the left lateral position. The patient was anesthetized with topical anesthesia. Through the anesthetized oropharyngeal area, the scope was passed without any difficulty. The EG-2990i ([id number]) and Pentax EG-2990i ([id number]) endoscope was introduced through the mouth and advanced to the second portion of the duodenum. Retroflexed views revealed a small hiatal hernia. The gastroscope was then slowly withdrawn and removed. Grade II varices were found in the lower esophagus. Esophageal banding was performed. Gastropathy was found in the body of the stomach. Mild gastritis was found in the antrum. Multiple erosions were found in the antrum. ADVERSE EVENTS: bleeding from pharynx with suctioning 05/25/2019 11:28 AM and then hypoxemia 05/25/2019 to O2 saturation 10% - quickly recovered by anesthesia with ambu ventilation and LMA placement IMPRESSIONS: 1. Three columns of grade II varices in the lower esophagus, s/p banding X2 2. Portal hypertensive gastropathy in the body of the stomach 3. Mild gastritis in the antrum 4. Multiple ( 7) erosions in the antrum RECOMMENDATIONS: 1. acid suppression therapy 2. Propanolol or Coreg REPEAT EXAM: Adelso James Dr eSigned: Adelso James Dr 05/25/2019 11:33 AM Revised: 05/25/2019 11:33 AM cc: Chau Greer CPT CODES: ICD9 CODES: PATIENT NAME: Zeinab Taveras MR#: [id number]
[2019-05-25] MEDS ORDERED: GLYCOPYRROLATE 0.2 MG/ML SYR ONE (12:55)
[2019-05-25 13:04] VITALS: TEMP 98.4; O2SAT 96
[2019-05-25 13:05] VITALS: BP 131/52
== END 2019-05-25 13:05 | disposition home or self-care (01) ==
LOC: OR 07:46
PROVIDERS: ATTEND Internal Medicine Gastroenterology
PROC: 06L38CZ Occlusion of Esophageal Vein with Extraluminal Device, Via Natural or Artificial Opening Endoscopic (ICD-10-PCS; principal; 2019-05-25 10:30)
DX: K74.60 Unspecified cirrhosis of liver (principal); I85.10 Secondary esophageal varices without bleeding; J95.89 Other postprocedural complications and disorders of respiratory system, not elsewhere classified; R09.02 Hypoxemia; Y83.8 Other surgical procedures as the cause of abnormal reaction of the patient, or of later complication, without mention of misadventure at the time of the procedure; Y92.234 Operating room of hospital as the place of occurrence of the external cause; K76.6 Portal hypertension; K29.70 Gastritis, unspecified, without bleeding; K31.89 Other diseases of stomach and duodenum; K25.9 Gastric ulcer, unspecified as acute or chronic, without hemorrhage or perforation; K44.9 Diaphragmatic hernia without obstruction or gangrene; E11.9 Type 2 diabetes mellitus without complications; I10 Essential (primary) hypertension; E03.9 Hypothyroidism, unspecified; E66.01 Morbid (severe) obesity due to excess calories; Z68.38 Body mass index [BMI] 38.0-38.9, adult; Z88.0 Allergy status to penicillin; Z90.710 Acquired absence of both cervix and uterus; Z82.3 Family history of stroke
CPT/HCPCS: 43244; 36415; 82962 ×2; J2704; J7030

== ENCOUNTER 2020-04-02 23:37 | Inpatient (IN) | payer OTHER ==
--- OUTSIDE RECORDS SUMMARY | 2020-04-02 23:40 | XMS REPORT | Continuity of Care Document ---
:1960 Author Organization [facility] t Address [address] [place] [address] Care Team Providers Name Role Phone Zoey HAND Primary Care Physician Anand Gloria MD Attending Clinician Sami PEACOCK Attending Clinician Unavailable Jacoby AVILEZ Attending Clinician Unavailable Payers Payer Name Policy Type Policy Number Effective Date Expiration Date S igor AETNAAETNA PPO xxxxxxxxxx 2014 [place] OPEN 00:00:00 Religious CHOICExxxxxxxxxx 2014-Present PPO Problems Condition Condition Condition Status Onset Resolution Last Treating Co mments Source Name Details Category Date Date Treatment Clinician Date Weight Weight Disease Active [place] gain gain 6-18 [facility] 00:00: st 00 Other Other Disease Active [place] ascites ascites 618 [facility] 00:00: st 00 Obesity Obesity Disease Active [place] 6-18 [facility]i 00:00: st 00 Encephalop Encephalop Disease Active [place] athy athy 6-18 [facility] 00:00: st 00 Abnormal Abnormal Disease Active [place] LFTs LFTs 6-18 [facility]i 00:00: st 00 Insomnia Insomnia Disease Active 2019-0 [place] 4-16 [facility] 00:00: st 00 HTN HTN Disease Active [place] (hypertens (hypertens 4-16 Me [facility] ion) ion) 00:00: st 00 High High Disease Active 2016-08 [place] cholestero cholestero 0-05 Me thodi l l 00:00: st 00 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 [facility] 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 00 Screening Screening Disease Active 2015-08 [facility] for cancer for cancer 0-07 Me thodi 00:00: st 00 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 0-07 Methodi 00:00: st 00 Vitamin D Vitamin D Disease Active 2015-08 [facility] deficiency deficiency 0-07 Me thodi 00:00: st 00 Diabetes Diabetes Disease Active [place] mellitus, mellitus, 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 Meth delia type II type II 00:00: st 00 Allergies, Adverse Reactions, Alerts Allergy Allergy Status Severity Reaction(s) Onset Inactive Treating Comm ents Source Name Type Date Date Clinician Loperami Propensi Active Other (See Antonio payne to Comments) 02-02 [facility] adverse 00:00: st reaction 00 s to drug Penicill Propensi Active Other (See 2010-08 Jacky ayala ty to Comments) 0-10 of [facility] adverse 00:00: / st reaction 00 roat s to drug Family History Family Member Diagnosis Comments Start Date Stop Date Source Natural father Diabetes [facility] odist Maternal grandmother [facility] Religious Social History Social Habit Start Date Stop Date Quantity Comments Source Sex Assigned At [place] M ethodist Alcohol intake 2020-03-09 2020-03-09 [facility] non-drinker of alcohol (finding) Smoking Status Start Date Stop Date Source Never smoker [facility] Medications Ordered Filled Start Stop Current Ordering Indication Dosage Frequency Signature Comments Components Source Medication Medication Date Date Medication? Clinician (SIG) Name Name furosemide 2020- Yes 20mg QD Take 1 [place] (Lasix) 20 6-18 06-18 tablet (20 Me [facility] mg tablet 00:00: 23:59 mg total) st 00 :00 by mouth daily. soft lens Yes Dry eyes 2[drp] Q.[id number] Apply 2 [place] adjunctive 4-16 [id number] drops to [facility] solutions 00:00: 3D eye 3 st (Rewetting 00 (three) Drops) times a solution day. omeprazole 2018-08 Yes 20mg QD Take 20 mg [place] (PriLOSEC) 1 by mouth Metho di 20 MG 13:11: daily. st capsule 19 levothyroxi Yes 1{tbl} QD Take 1 [place] ne 1-30 tablet by [facility] (SYNTHROID, 00:00: mouth st LEVOXYL) 00 daily. 112 mcg tablet glimepiride Yes 4mg QD Take 4 mg [place] (AMARYL) 4 9-12 by mouth Metho di MG tablet 00:00: once st 00 daily. metFORMIN Yes 750mg QD Take 750 [facility] [facility] XR 9-12 mg by [facility] (GLUCOPHAGE 00:00: mouth once st -XR) 750 MG 00 daily. 24 hr tablet carvedilol Yes 6.25mg Q.5D Take 6.25 [place] (COREG) 8-17 mg by [facility] 6.25 MG 00:00: mouth 2 st tablet 00 (two) times a day. lisinopril- 2019- No 1{tbl} QD Take 1 [place] hydrochloro 8-17 11-26 tablet by Ok eliseo thiazide 00:00: 00:[address] (PRINZIDE,Z 00 :00 daily. ESTORETIC) 20-12.5 mg per tablet Immunizations Ordered Immunization Filled Immunization Date Status Commen ts Source Name Name FLUCELVAX QUAD PF 2016-05-17 Completed [place] 00:00:00 Religious Vital Signs Vital Name Observation Time Observation Value Comments Source Body height 2020-03-09 09:15:00 167.6 cm [place] Religious Systolic blood 2019-07-06 13:10:00 199 mm[Hg] Rubina dupont Religious pressure Diastolic blood 2019-07-06 13:10:00 83 mm[Hg] Tee Russo pressure Heart rate 2019-07-06 13:10:00 59 /min [place] Religious Body weight 2019-07-06 13:10:00 111.245 kg [place] [facility] BMI 2019-07-06 13:10:00 39.58 kg/m2 [place] Religious Oxygen saturation in 2019-07-06 13:10:00 97 /min [place] Religious Arterial blood by Pulse oximetry Procedures Procedure Date / Time Performing Clinician Source Performed CBC WITH PLATELET AND 2020-03-16 08:54:00 Sangeetha Gloria DIFFERENTIAL COMPREHENSIVE METABOLIC 2020-03-16 08:54:00 Faizan, Sangeetha W. [facility] [facility] Religious PANEL PROTHROMBIN TIME WITH INR 2020-03-16 08:54:00 Faizan, Sangeetha Romeroist B NATRIURETIC PEPTIDE 2020-03-06 07:53:00 Faizan, Sangeetha Oliveira on Religious CBC WITH PLATELET AND 2020-03-06 07:53:00 Sangeetha Gloria on Religious DIFFERENTIAL COMPREHENSIVE METABOLIC 2020-03-06 07:53:00 Faizan, Sangeetha ha Religious PANEL GGT 2020-03-06 07:53:00 Faizan, Sangeetha [facility] Met hodist HEMOGLOBIN A1C 2020-03-06 07:53:00 Faizan, Sangeetha Fonseca Met hodist PROTHROMBIN TIME WITH INR 2020-03-06 07:53:00 Faizan, Sangeetha Romeroist CBC WITH PLATELET AND 2020-01-31 08:08:00 Faizan, Sangeetha Oliveira on Religious DIFFERENTIAL COMPREHENSIVE METABOLIC 2020-01-31 08:08:00 Faizan, Sangeetha ha Religious PANEL GGT 2020-01-31 08:08:00 Faizan, Sangeetha Fonseca Met hodist PROTHROMBIN TIME WITH INR 2020-01-31 08:08:00 Sangeetha Gloria Religious IMMUNOGLOBULIN G, A, M 2020-01-31 08:08:00 Sangeetha Golria Religious COMPREHENSIVE METABOLIC 2019-09-23 09:14:00 Sangeetha Gloria Religious PANEL PROTHROMBIN TIME WITH INR 2019-09-23 09:14:00 Sangeetha Gloriaist CBC WITH PLATELET AND 2019-09-23 09:14:00 Sangeetha Gloria on Religious DIFFERENTIAL IMMUNOGLOBULIN G, A, M 2019-09-23 09:14:00 Sangeetha Gloria Religious ALPHA FETOPROTEIN 2019-09-23 09:14:00 Sangeetha Gloria M ethodist ALPHA FETOPROTEIN 2019-07-01 00:00:00 Sangeetha Gloria M ethodist CBC WITH PLATELET AND 2019-07-01 00:00:00 Sangeetha Gloria on Religious DIFFERENTIAL COMPREHENSIVE METABOLIC 2019-07-01 00:00:00 Sangeetha Gloria Religious PANEL PROTHROMBIN TIME WITH INR 2019-07-01 00:00:00 Sangeetha Gloria Religious PLATELET ESTIMATION (NOT 2019-07-01 00:00:00 Sangeetha Gloriaton Religious ORDERABLE) Plan of Care Planned Activity Planned Date Details Comments Source Future Scheduled 2020-05-11 INFLUENZA VACCINE [place] [facility] Test 00:00:00 [code = INFLUENZA VACCINE] Future Scheduled 2008 BREAST CANCER [place] Me thodist Test 00:00:00 SCREENING [code = BREAST CANCER SCREENING] Future Scheduled 2008 COLONOSCOPY SCREENING [place] [facility] Test 00:00:00 [code = COLONOSCOPY SCREENING] Future Scheduled 2008 SHINGLES VACCINES [place] [facility] Test 00:00:00 (#1) [code = SHINGLES VACCINES (#1)] Future Scheduled 1979 Screening for [facility] thodist Test 00:00:00 malignant neoplasm of cervix (procedure) [code = 249895021] Future Scheduled 1968 DIABETIC FOOT EXAM [place] [facility] Test 00:00:00 [code = DIABETIC FOOT EXAM] Future Scheduled 1958 DIABETIC RETINAL EYE [facility] Test 00:00:00 EXAM [code = DIABETIC RETINAL EYE EXAM] Encounters Start End Encounter Admission Attending Care Care Encounter Source Date/Time Date/Time Type Type Clinicians Facility Department ID 2020-03-20 2020-03-20 Outpatient FAIZAN, [facility] [id number] [place] 00:00:00 00:00:00 SANGEETHA [address] 2020-03-07 2020-03-07 Outpatient FAIZAN, [facility] [id number] [place] 00:00:00 00:00:00 SANGEETHA [address] 2020-03-03 2020-03-03 Outpatient FAIZAN, [facility] [id number] [place] 00:00:00 00:00:00 SANGEETHA [address] 2020-02-03 2020-02-03 Outpatient FAIZAN, [facility] [id number] [place] 00:00:00 00:00:00 SANGEETHA [address] 2020-01-27 2020-01-27 Outpatient FAIZAN, [facility] [id number] [place] 00:00:00 00:00:00 SANGEETHA [address] 2019-11-25 2019-11-25 Outpatient FAIZAN, [facility] [id number] [place] 00:00:00 00:00:00 SANGEETHA [address] Results Test Description Test Time Test Comments Results Result Comments Source Comprehensive metabolic panel 2020-03-17 00:59:00 Test Item Value Reference Range Interpretation Comme nts Glucose (test code = 63 mg/dL 65-99 L Fasting 2345-7) reference inter darien BUN (test code = 23 mg/dL 7-25 3094-0) Creatinine (test code = 1.23 mg/dL 0.5-0.99 H For patients >49 years of 2160-0) age, the refere nce limitfor Creati nine is approximately 1 3% higher for peopleident ified as -Shayna n. EGFR Non-Afr. [place] 47 > OR = 60 L (test code = 2775) mL/min/1.73m2 EGFR 55 > OR = 60 L (test code = 41932-2) mL/min/1.73m2 BUN/creatinine ratio 19 6- 22 (calc) (test code = 3097-3) Sodium (test code = 138 mmol/L 485-485 0255-2) Potassium (test code = 3.9 mmol/L 3.5-5.3 2823-3) Chloride (test code = 102 mmol/L 98-110 2075-0) CO2 (test code = 30 mmol/L 20-32 8-9) Calcium (test code = 8.4 mg/dL 8.6-10.4 L 77461-2) Protein (test code = 6.4 g/dL 6.1-8.1 2885-2) Albumin, S (test code = 2.8 g/dL 3.6-5.1 L 1751-7) Globulin, total (test 3.6 1.9- 3.7 g/dL code = 85750-7) (calc) Albumin/globulin ratio 0.8 1.0- 2.5 L (test code = 1759-0) (calc) Total bilirubin (test 2.2 mg/dL 0.2-1.2 H code = 1974-) Alkaline phosphatase 46 U/L 37-153 (test code = 6768-6) AST (test code = 23 U/L 10-35 1920-8) ALT (test code = 8 U/L 6-29 1742-6) TY (test code = TY) FASTING:YESFASTING: YES RAC (test code = RAC) Performing Organization Information: Site ID: GARRICKA Name: [facility] Address: [address] [place] [address] Director: Juan Gil Lab Interpretation Abnormal (test code = 18520-0) [facility] with platelet and [id number] 00:59:00 Test Item Value Reference Range Interpretation Comments WBC (test code = 6.5 3.8- 10.8 6690-2) Thousand/uL RBC (test code = 789-8) 3.05 3.80- 5.10 L Million/uL HGB (test code = 718-7) 10.5 g/dL 11.7-15.5 L HCT (test code = 30.3 % 35-45 L 4544-3) MCV (test code = 787-2) 99.3 fL 80-100 MCH (test code = 785-6) 34.4 pg 27-33 H MCHC (test code = 34.7 g/dL 32-36 786-4) RDW (test code = 788-0) 13.5 % 11-15 Platelet count (test 86 140- 400 L code = 777-3) Thousand/uL MPV (test code = 776-5) 9.6 fL 7.5-12.5 Neutrophils, absolute 4784 1,500 - 7,800 (test code = 751-8) cells/uL Lymphocytes, absolute 878 850- 3,900 (test code = 731-0) cells/uL Monocytes, absolute 585 200- 950 cells/uL (test code = 742-7) Eosinophils, absolute 221 15- 500 cells/uL (test code = 711-2) Basophils, absolute 33 0- 200 cells/uL (test code = 704-7) Neutrophils (test code 73.6 % = 770-8) Lymphocytes (test code 13.5 % = 736-9) Monocytes (test code = 9.0 % 5905-5) Eosinophils (test code 3.4 % = 713-8) Basophils + RC (test 0.5 % code = 706-2) TY (test code = TY) FASTING:YESFASTING: YES RAC (test code = RAC) Performing Organization Information: Site ID: RGA Name: [facility] Address: [address] [place] [phone] Director: Juan Gil Lab Interpretation Abnormal (test code = 87228-8) [facility] with [id number] 00:59:00 Test Item Value Reference Range Interpretation Comments INR (test code = 1.5 H Reference R nisreen 6301-6) 0.9-1.1Moderate -i ntensity Warfar in Therapy 2.0-3.0Higher-i nt ensity Warfarin Therapy 3.0-4 .0 Prothrombin time 15.1 9.0- 11.5 sec H For more (test code = 5902-2) informa tion on this test, go to:[email or web address] TY (test code = FASTING:YESFASTING TY) : YES RAC (test code = Performing RAC) Organization Information: Site ID: RGA [facility]: [facility] Address: [address] [place] [phone] Director: Juan Gil Lab Interpretation Abnormal (test code = 97039-5) [facility] [id number] 12:35:00 Test Item Value Reference Range Interpretation Comments GGT (test code = 18 U/L 3-65 2324-2) TY (test code = FASTING:YESPATIENT REFUSED TY) SOME TESTING; PATIENT ENCOURAGED TO RETURN.FASTING: YES RAC (test code = Performing Organization RAC) Information: Site ID: RGA Name: [facility] Address: [address] [place] [phone] Director: Juan Gil [place] MethodistHemoglobin [id number] 12:35:00 Test Item Value Reference Interpretation Comments Range Hemoglobin A1C 6.3 <5.7 % of H For someone w ithout (test code = total Hgb known diabetes, a 4548-4) hemoglobin A1c value between 5.7% an d 6.4% is consist ent withprediabetes and should be confi rmed with a follow-u p test. For someo ne with known diab etes, a value <7%indicates that their diabetes is well controlled . T6gvborilz shou ld be individualized based on duration ofdiabetes, age , comorbid condit ions, and otherconsiderat ions. This assay resu lt is consistent with an increased risko f diabetes. Curre ntly, no consensus ex ists regarding use ofhemoglobin A1 c for diagnosis of diabetes for children. TY (test code = FASTING:YESPATIEN TY) T REFUSED SOME TESTING; PATIENT ENCOURAGED TO RETURN.FASTING: YES RAC (test code = Performing RAC) Organization Information: Site ID: A Name: [facility] Address: [address] [place] [address] Director: Juan Gil Lab Interpretation Abnormal (test code = 81934-6) [place] ReligiousB natriuretic [id number] 12:35:00 Test Item Value Reference Range Interpretation Comments BNP (test 29 pg/mL <100 BNP levels inc rease code = with age in the 84165-5) generalpopulati on with the highest darien ues seen inindividuals g reater than 75 years o f age.Reference: J. Am. Taylor. Cardiol. 2002; 40:976-982. TY (test FASTING:YESPATIENT code = TY) REFUSED SOME TESTING; PATIENT ENCOURAGED TO RETURN.FASTING: YES RAC (test Performing code = RAC) Organization Information: Site ID: GREER Name: [facility] Address: [address] [place] [address] Director: Juan Gil [place] MethodistImmunoglobulin G, A, [id number] 15:20:00 Test Item Value Reference Range Interpretation Comments IgA (test code = 2458-8) 818 mg/dL 70-320 H IgG (test code = 2465-3) 1920 mg/dL 600-1540 H IgM (test code = 2472-9) 60 mg/dL 50-300 TY (test code = TY) FASTING:YESFASTING: YES RAC (test code = RAC) Performing Organization Information: Site ID: GREER Name: [facility] Address: [address] [place] [phone] Director: Juan Gil Lab Interpretation (test Abnormal code = 74960-9) [place] HeatheristAlpha [id number] 16:00:00 Test Item Value Reference Interpretation Comments Range Alpha fetoprotein 6.5 ng/mL H Reference Range: <6.1The (test code = use of AFP as a tumor 31907-9) marker in pregn antfemales is not recommen ded. This test was perfor med using the Philip Coulterchemilum inescent method. Values obtained fromdifferent a ssay methods cannot be usedinterchange ably. AFP levels, regardl ess ofvalue, should not be interpreted as absoluteevidenc e of the presence or abs ence of disease. TY (test code = FASTING:YESFAST TY) ING: YES RAC (test code = Performing RAC) Organization Information: Site ID: [facility]: [facility] Address: [address] [place] [phone] Director: Dr. Juan Gil Lab Abnormal Interpretation (test code = 15319-9) Raymundo Russo
--- OUTSIDE RECORDS SUMMARY | 2020-04-02 23:40 | XMS REPORT | Clinical Summary ---
:1960 Author Organization [facility] Address [address] [place] [address] Care Team Providers Name Role Phone MD Zoey Primary Care Provider Allergies Active Allergy Reactions Severity Noted Date Comments Loperamide Other (See Comments) 02/03/2020 Penicillins Other (See Comments) 05/20/2011 Swelljacob g of tongue/throat Medications Medication Sig Dispensed Refills Start Date End Date Status carvedilol (COREG) Take 6.25 mg 1 03/27/2016 Active 6.25 MG tablet by mouth 2 (two) times a day. glimepiride (AMARYL) Take 4 mg by 1 04/22/2016 Active 4 MG tablet mouth once daily. metFORMIN XR Take 750 mg 1 04/22/2016 Acti ve (GLUCOPHAGE-XR) 750 by mouth once MG 24 hr tablet daily. omeprazole Take 20 mg by 0 Activ e (PriLOSEC) 20 MG mouth daily. capsule levothyroxine Take 1 tablet 0 09/09/2017 A ctive (SYNTHROID, LEVOXYL) by mouth 112 mcg tablet daily. soft lens adjunctive Apply 2 drops 1 Bottle 12 11/25/2019 Active solutions (Rewetting to eye 3 Drops) (three) times solutionIndications: a day. Dry eyes furosemide (Lasix) Take 1 tablet 30 tablet 11 01/27/20202020 Active 20 mg tablet (20 mg total) by mouth daily. lisinopril-hydrochlo Take 1 tablet 1 03/27/2016/01/2019 Discontinued rothiazide by mouth once (PRINZIDE,ZESTORETIC daily. ) 20-12.5 mg per tablet Active Problems Problem Noted Date Weight gain 01/27/2020 Other ascites 01/27/2020 Obesity 01/27/2020 Encephalopathy 01/27/2020 Abnormal LFTs 01/27/2020 Insomnia 11/25/2019 HTN (hypertension) 11/25/2019 High cholesterol 05/15/2017 Decompensated hepatic cirrhosis 05/17/2016 Screening for cancer 05/17/2016 Esophageal varices 05/17/2016 Vitamin D deficiency 05/17/2016 Diabetes mellitus, type II 08/11/1996 Encounters Date Type Specialty Care Team Description 03/20/2020 Telemedicine Hepatology Brent Gloria, Abnormal L FTs (Primary Dx); Bilateral lower extremity edema; SALCIDO (dyspnea on exertion); Cirrhosis of li antwan without ascites, unspecified hepatic cirrhosis type (HCC); Other ascites 03/07/2020 Telemedicine Hepatology Brent Gloria, Abnormal L FTs (Primary Dx); Weight gain; Bilateral lower extremity edema; SALCIDO (dyspnea on exertion) 03/03/2020 Telemedicine Hepatology Brent Gloria, Abnormal L FTs (Primary Dx); Weight gain; Bilateral lower extremity edema; Cirrhosis of li antwan without ascites, unspecified hepatic cirrhosis type (HCC); SALCIDO (dyspnea on exertion) 02/03/2020 Telemedicine Hepatology Brent Gloria, Hypertensi on, unspecified type (Primary Dx); Abnormal LFTs; Obesity, unspec ified classification, unspecified obesity type, unspecified whether serious comorbidity present; Weight gain; Bilateral lower extremity edema 01/27/2020 Telemedicine Hepatology Brent Gloria, Other asci haleigh (Primary Dx); Hypertension, u nspecified type; Abnormal LFTs; Encephalopathy; Obesity, unspec ified classification, unspecified obesity type, unspecified whether serious comorbidity present; Decompensated h epatic cirrhosis (HCC); Weight gain 01/26/2020 Telephone Hepatology Keron Gallardo MA 01/24/2020 Telephone Hepatology Keron Gallardo MA 01/10/2020 Telephone Hepatology Keron Gallardo MA 01/10/2020 Orders Only Hepatology Keron Gallardo, Cirrhosis of liver without ascites, unspecified hepatic cirrhosis type (HCC) (Primary Dx); MADONNA Dry eyes; Secondary esoph ageal varices without bleeding (HCC); Essential hyper tension; Hypertension, u nspecified type; Insomnia, unspe cified type; Screening of ca ncer; Screening for c ancer 01/06/2020 Telephone Hepatology Jaquelin Dozier, FATMATA 11/25/2019 Telemedicine Hepatology Brent Gloria, Dry eyes ( Primary Dx); Cirrhosis of li antwan without ascites, unspecified hepatic cirrhosis type (HCC); Secondary esoph 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.] Vital Signs Vital Sign Reading Time Taken Comments Blood Pressure 199/83 07/06/2019 1:10 PM [facility] Pulse 59 07/06/2019 1:10 PM CAP [facility] Temperature - - Respiratory Rate - - Oxygen Saturation 97% 07/06/2019 1:10 PM CAP [facility] Inhaled Oxygen Concentration - - Weight 111 kg (245 lb 4 oz) 07/06/2019 1:10 PM CAP [facility] Height 167.6 cm (5' 6") 03/09/2020 9:15 AM CDT Body Mass Index 39.58 07/06/2019 1:10 PM CAP [facility]KER Plan of Treatment Date Type Specialty Care Team Description 04/18/2020 Office Visit Hepatology Brent Gloria MD [address] [address] [phone] Health Maintenance Due Date Last Done Comments DIABETIC RETINAL EYE EXAM 1958 DIABETIC FOOT EXAM 1968 CERVICAL CANCER SCREENING 1979 BREAST CANCER SCREENING 2008 COLONOSCOPY SCREENING 2008 SHINGLES VACCINES (#1) 2008 INFLUENZA VACCINE 05/11/2020 05/17/2016 Procedures Procedure Name Priority Date/Time Associated Comments Diagnosis PROTHROMBIN TIME WITH Routine 03/16/2020 8:54 Abnormal LFTs Results for this INR AM CDT Weight gain procedure are in Bilateral lower the results extremity edema section. SALCIDO (dyspnea on exertion) COMPREHENSIVE METABOLIC Routine 03/16/2020 8:54 Abnorma l LFTs Results for this PANEL AM CDT Weight gain procedure are in Bilateral lower the results extremity edema section. SALCIDO (dyspnea on exertion) CBC WITH PLATELET AND Routine 03/16/2020 8:54 Abnormal LFTs Results for this DIFFERENTIAL AM CDT Weight gain procedure are in Bilateral lower the results extremity edema section. SALCIDO (dyspnea on exertion) PROTHROMBIN TIME WITH Routine 03/06/2020 7:53 Abnormal LFTs Results for this INR AM CDT Weight gain procedure are in Bilateral lower the results extremity edema section. Cirrhosis of liver without ascites, unspecified hepatic cirrhosis type (HCC) SALCIDO (dyspnea on exertion) HEMOGLOBIN A1C Routine 03/06/2020 7:53 Abnormal LFTs Results for this AM CDT Weight gain procedure are in Bilateral lower the results extremity edema section. Cirrhosis of liver without ascites, unspecified hepatic cirrhosis type (HCC) SALICDO (dyspnea on exertion) GGT Routine 03/06/2020 7:53 Abnormal LFTs Results for this AM CDT Weight gain procedure are in Bilateral lower the results extremity edema section. Cirrhosis of liver without ascites, unspecified hepatic cirrhosis type (HCC) SALCIDO (dyspnea on exertion) COMPREHENSIVE METABOLIC Routine 03/06/2020 7:53 Abnorma l LFTs Results for this PANEL AM CDT Weight gain procedure are in Bilateral lower the results extremity edema section. Cirrhosis of liver without ascites, unspecified hepatic cirrhosis type (HCC) SALCIDO (dyspnea on exertion) CBC WITH PLATELET AND Routine 03/06/2020 7:53 Abnormal LFTs Results for this DIFFERENTIAL AM CDT Weight gain procedure are in Bilateral lower the results extremity edema section. Cirrhosis of liver without ascites, unspecified hepatic cirrhosis type (HCC) SALCIDO (dyspnea on exertion) B NATRIURETIC PEPTIDE Routine 03/06/2020 7:53 Abnormal LFTs Results for this AM CDT Weight gain procedure are in Bilateral lower the results extremity edema section. Cirrhosis of liver without ascites, unspecified hepatic cirrhosis type (HCC) SALCIDO (dyspnea on exertion) IMMUNOGLOBULIN G, A, M Routine 01/31/2020 8:08 Hypertension, Results for this AM CDT unspecified type procedure are in Abnormal LFTs the results Encephalopathy section. Obesity, unspecified classification, unspecified obesity type, unspecified whether serious comorbidity pres ent Decompensated hepatic cirrhosis (HCC) Other ascites Weight gain PROTHROMBIN TIME WITH Routine 01/31/2020 8:08 Hypertension, R esults for this INR AM CDT unspecified type procedure are in Abnormal LFTs the results Encephalopathy section. Obesity, unspecified classification, unspecified obesity type, unspecified whether serious comorbidity pres ent Decompensated hepatic cirrhosis (HCC) Other ascites Weight gain GGT Routine 01/31/2020 8:08 Hypertension, Results fo r this AM CDT unspecified type procedure are in Abnormal LFTs the results Encephalopathy section. Obesity, unspecified classification, unspecified obesity type, unspecified whether serious comorbidity pres ent Decompensated hepatic cirrhosis (HCC) Other ascites Weight gain COMPREHENSIVE METABOLIC Routine 01/31/2020 8:08 Hypertension, Results for this PANEL AM CDT unspecified type procedure are in Abnormal LFTs the results Encephalopathy section. Obesity, unspecified classification, unspecified obesity type, unspecified whether serious comorbidity pres ent Decompensated hepatic cirrhosis (HCC) Other ascites Weight gain CBC WITH PLATELET AND Routine 01/31/2020 8:08 Hypertension, R esults for this DIFFERENTIAL AM CDT unspecified type procedure are in Abnormal LFTs the results Encephalopathy section. Obesity, unspecified classification, unspecified obesity type, unspecified whether serious comorbidity pres ent Decompensated hepatic cirrhosis (HCC) Other ascites Weight gain ALPHA FETOPROTEIN Routine 09/23/2019 9:14 Result s for this AM [facility] procedure are i n the results section. IMMUNOGLOBULIN G, A, M Routine 09/23/2019 9:14 R esults for this AM [facility] procedure are i n the results section. CBC WITH PLATELET AND Routine 09/23/2019 9:14 Re sults for this DIFFERENTIAL AM [facility] procedure are i n the results section. PROTHROMBIN TIME WITH Routine 09/23/2019 9:14 Re sults for this INR AM [facility] procedure are i n the results section. COMPREHENSIVE METABOLIC Routine 09/23/2019 9:14 Results for this PANEL AM [facility] procedure are i n the results section. PLATELET ESTIMATION Routine 07/01/2019 12:00 Resu lts for this (NOT ORDERABLE) AM [facility] procedure ar e in the results section. PROTHROMBIN TIME WITH Routine 07/01/2019 12:00 Cirrhosis of li antwan Results for this INR AM CAP MAKER without ascites, procedure a re in unspecified hepatic the resu lts cirrhosis type section. (HCC) Abnormal LFTs COMPREHENSIVE METABOLIC Routine 07/01/2019 12:00 Cirrhosis of liver Results for this PANEL AM CAP [facility]KER without ascites, procedure a re in unspecified hepatic the resu lts cirrhosis type section. (HCC) Abnormal LFTs CBC WITH PLATELET AND Routine 07/01/2019 12:00 Cirrhosis of li [place]wan Results for this DIFFERENTIAL AM CAP [facility]KER without ascites, procedure a re in unspecified hepatic the resu lts cirrhosis type section. (HCC) Abnormal LFTs ALPHA FETOPROTEIN Routine 07/01/2019 12:00 Cirrhosis of liver Results for this AM [facility] without ascites, procedure a re in unspecified hepatic the resu lts cirrhosis type section. (HCC) Abnormal LFTs after 04/02/2019 Results Prothrombin time with INR (03/16/2020 8:54 AM CDT)Only the most recent of5 resultswithin the time period is included. INR 1.5 (H) [facility] Comment: [place] Reference Range 0.9-1.1 Moderate-intensity Warfarin Therapy 2.0-3.0 Higher-intensity Warfarin Therapy 3.0-4.0 Prothrombin time 15.1 (H) 9.0 - 11.5 [facility] Comment: geraldo CASON For more information on this test, go to: http://education.DonorPath.LinkMeGlobal/faq/LHA903 Specimen Blood Narrative Performed At FASTING:YES [facility] FASTING: YES Resulting Agency Comment Performing Organization Information: Site ID: [id number] Name: [facility] Address: [address] [place] [phone] Director: Juan Gil Performing Organization Address City/State/Zipcode Phone Number [facility] [address] [address] CBC with platelet and differential (03/16/2020 8:54 AM CDT)Only the most recent of5 resultswithin the time period is included. WBC 6.5 3.8 - 10.8 [facility] Thousand/uL [place] RBC 3.05 (L) 3.80 - 5.10 [facility] Million/uL [place] HGB 10.5 (L) 11.7 - 15.5 [facility] g/dL [place] HCT 30.3 (L) 35.0 - 45.0 % [facility] [place] MCV 99.3 80.0 - 100.0 fL [facility] [place] MCH 34.4 (H) 27.0 - 33.0 pg [facility] [place] MCHC 34.7 32.0 - 36.0 [facility] g/dL [place] RDW 13.5 11.0 - 15.0 % [facility] [place] Platelet count 86 (L) 140 - 400 [facility] Thousand/uL [place] MPV 9.6 7.5 - 12.5 fL [facility] [place] Neutrophils, absolute 4,784 1,500 - 7,800 [facility] cells/uL [place] Lymphocytes, absolute 878 850 - 3,900 [facility] cells/uL [place] Monocytes, absolute 585 200 - 950 [facility] cells/uL [place] Eosinophils, absolute 221 15 - 500 [facility] cells/uL [place] Basophils, absolute 33 0 - 200 [facility] cells/uL [place] Neutrophils 73.6 % [facility] [place] Lymphocytes 13.5 % [facility] [place] Monocytes 9.0 % [facility] [place] Eosinophils 3.4 % [facility] [place] Basophils + RC 0.5 % [facility] [place] Specimen Blood Narrative Performed At FASTING:YES [facility] FASTING: YES Resulting Agency Comment Performing Organization Information: Site ID: [id number] Name: [facility] Address: [address] [place] [phone] Director: Juan Gil Performing Organization Address City/State/Zipcode Phone Number MINDY [facility] [place] [phone] Comprehensive metabolic panel (03/16/2020 8:54 AM CDT)Only the most recent of5 resultswithin the time period is included. Glucose 63 (L) 65 - 99 [facility] Comment: mg/dL [place] Fasting reference interval BUN 23 7 - 25 mg/dL [facility] [place] Creatinine 1.23 (H) 0.50 - 0.99 [facility] Comment: mg/dL [place] For patients >49 years of age, the reference limit for Creatinine is approximately 13% higher for people identified as -Ukrainian. EGFR Non-Afr. 47 (L) > OR = 60 [facility] Ukrainian mL/min/1.73m [place] 2 EGFR 55 (L) > OR = 60 [facility] [place] mL/min/1.73m [place] 2 BUN/creatinine 19 6 - 22 [facility] ratio (calc) [place] Sodium 138 135 - 146 [facility] mmol/L [place] Potassium 3.9 3.5 - 5.3 [facility] mmol/L [place] Chloride 102 98 - 110 [facility] mmol/L [place] CO2 30 20 - 32 [facility] mmol/L [place] Calcium 8.4 (L) 8.6 - 10.4 [facility] mg/dL [place] Protein 6.4 6.1 - 8.1 [facility] g/dL [place] Albumin, S 2.8 (L) 3.6 - 5.1 [facility] g/dL [place] Globulin, total 3.6 1.9 - 3.7 [facility] g/dL (calc) [place] Albumin/globulin 0.8 (L) 1.0 - 2.5 [facility] ratio (calc) [place] Total bilirubin 2.2 (H) 0.2 - 1.2 [facility] mg/dL [place] Alkaline 46 37 - 153 U/L [facility] phosphatase [place] AST 23 10 - 35 U/L [facility] [place] ALT 8 6 - 29 U/L [facility] [place] Specimen Blood Narrative Performed At FASTING:YES [facility] FASTING: YES Resulting Agency Comment Performing Organization Information: Site ID: [id number]: [facility] Address: [address] [place] [phone] Director: Juan Gil Performing Organization Address City/State/Zipcode Phone Number [facility] [address] [address] B natriuretic peptide (03/06/2020 7:53 AM CDT) Pathologist Sig nature BNP 29 <100 pg/mL [facility] Comment: [place] BNP levels increase with age in the general population with the highest values seen in individuals greater than 75 years of age. Reference: J. Am. Taylor. Cardiol. 2002; 40:976-982. Specimen Blood Narrative Performed At FASTING:YES [facility] PATIENT REFUSED SOME TESTING; PATIENT EN COURAGED TO RETURN. FASTING: YES Resulting Agency Comment Performing Organization Information: Site ID: [id number] Name: [facility] Address: [address] [place] [phone] Director: Juan Gil Performing Organization Address [facility] Phone Number [facility] [address] [address] Hemoglobin A1c (03/06/2020 7:53 AM CDT) Hemoglobin A1C 6.3 (H) <5.7 % of [facility] Comment: total Hgb [place] For someone without known diabetes, a hemoglobin A1c value between 5.7% and 6.4% is consistent with prediabetes and should be confirmed with a follow-up test. For someone with known diabetes, a value <7% indicates that their diabetes is well controlled. A1c targets should be individualized based on duration of diabetes, age, comorbid conditions, and other considerations. This assay result is consistent with an increased risk of diabetes. Currently, no consensus exists regarding use of hemoglobin A1c for diagnosis of diabetes for children. Specimen Blood Narrative Performed At FASTING:YES [place]IND[place] PATIENT REFUSED SOME TESTING; PATIENT EN COURAGED TO RETURN. FASTING: YES Resulting Agency Comment Performing Organization Information: Site ID: [id number] Name: [facility] Address: [address] [place] [phone] Director: Juan Gil Performing Organization Address [facility] [place]ercode [place] [address] GGT (03/06/2020 7:53 AM CDT)Only the most recent of2 resultswithin the time period is included. Pathologist [facility] GGT 18 3 - 65 U/L [facility] [place] Specimen Blood Narrative Performed At FASTING:YES MINDY PATIENT REFUSED SOME TESTING; PATIENT EN COURAGED TO RETURN. FASTING: YES Resulting Agency Comment Performing Organization Information: Site ID: [facility] Name: [facility] Address: [address] [place] [phone] Director: Juan Gil Performing Organization Address [facility] [place]ode [place] [address] Immunoglobulin G, A, M (01/31/2020 8:08 AM CDT)Only the most recent of2 results within the time period is included. Pathologist Sig [facility] IgA 818 (H) 70 - 320 mg/dL [facility] [place] IgG 1,920 (H) 600 - 1,540 mg/dL [facility] IgM 60 50 - 300 mg/dL [facility] [place] Specimen Blood Narrative Performed At FASTING:YES [facility] FASTING: YES Resulting Agency Comment Performing Organization Information: Site ID: [id number] Name: [facility] Address: [address] [place] [phone] Director: Juan Gil Performing Organization Address [facility] Centercode Phone Number [facility] [place] [address] [place] [phone] Alpha fetoprotein (09/23/2019 9:14 AM CAP [facility]ER)Only the most recent of2 results within the time period is included. Alpha fetoprotein 6.5 (H) ng/mL [facility] Comment: DIAGNOSTICS-IR Reference Range: <6.1 NG II The use of AFP as a tumor marker in females is not recommended. This test was performed using the Philip Anusha chemiluminescent method. Values obtained from different assay methods cannot be used interchangeably. AFP levels, regardless of value, should not be interpreted as absolute evidence of the presence or absence of disease. Specimen Narrative Performed At FASTING:YES [facility] FASTING: YES Resulting Agency Comment Performing Organization Information: Site ID: [id number] Name: [facility] Address: [address] [place] [phone] Director: Dr. Juan allen Performing Organization Address [facility] Centercode Phone Number [facility] [address] [address] Platelet estimation (07/01/2019 12:00 AM CAP MAKER) Pathologist Sig nature Platelet estimate DECREASED (A) ADEQUATE [facility] [place] Specimen Narrative Performed At FASTING:YES [facility] FASTING: YES Resulting Agency Comment Performing Organization Information: Site ID: [id number] Name: [facility] Address: [address] [place] [phone] Director: Juan Gil Performing Organization Address City/[facility]/Zipcode Phone Number [facility] [place] [address] [place] [phone] after 04/02/2019 Advance Directives For more information, please contact: [phone] Type Date Recorded Patient [employer] Pourer Explanati on Advance Directives, Living Will and Medical Power of Supervisor Lace Tearing
[2020-04-03] MEDS ORDERED: FUROSEMIDE 40 MG/4 ML VIAL ONE ×2 (00:02→10:28)
[2020-04-03 00:10] LABS: Absolute Lymphocytes (CBC) 0.7 K/uL (0.7-4.9); Basophils % 0.6 % (0-1.3); Hematocrit 31.3 % (36.0-45.0); Lymphocytes % 11.7 % (15.3-44.8); MPV 8.9 fL (7.6-11.3); RBC Red Blood Cell Count 2.98 M/uL (3.86-4.86)
[2020-04-03 00:48] LABS: ALT/SGPT 12 U/L (12-78); Albumin 2.6 g/dL (3.4-5.0); Alkaline Phosphatase 62 U/L (45-117); BUN Blood Urea Nitrogen 25 mg/dL (7-18); Bicarbonate 27 mmol/L (21-32); Bilirubin Direct 0.7 mg/dL (0-0.2); Bilirubin Total 1.8 mg/dL (0.2-1.0); Glucose Level 136 mg/dL (74-106); NT PRO-BNP 254 pg/mL (<125); Protein, Total 7.5 g/dL (6.4-8.2); Sodium Level 141 mmol/L (136-145); Troponin (Emerg Dept Use Only) < 0.02 ng/mL (0.0-0.045)
[2020-04-03 00:49] LABS: AST/SGOT 32 U/L (15-37); Magnesium 2.3 mg/dL (1.8-2.4); Potassium 4.3 mmol/L (3.5-5.1)
[2020-04-03 01:10] LABS: Protime INR 1.68
[2020-04-03 01:20] LABS: Blood Morphology Comment NOT SEEN (NOT SEEN); Platelet Estimate DECR; White Blood Cell Scan OK
[2020-04-03 01:22] LABS: Urine Blood TRACE (NEG); Urine Glucose NEGATIVE (NEG); Urine Protein 1+ (NEG); Urine Specific Gravity >1.030 (1.005-1.030); Urine pH 5.5 (5.0-7.0)
--- NOTE | 2020-04-03 01:47 | EDPHYS ---
Physician Documentation [facility] Name: Zeinab Taveras Age: 59 yrs Sex: Female : 1960 Arrival Date: 04/02/2020 Time: 23:41 Bed 2 Private MD: ED Physician Elias Mosley HPI: 04/02 23:52 This 59 yrs old Female presents to ER via EMS with complaints of sob. rn 23:52 The patient has shortness of breath at rest, with light activity. Onset: The rn symptoms/episode began/occurred at an unknown time. Duration: The symptoms are intermittent. The patient's shortness of breath is aggravated by exertion, light activity, supine position, talking, walking. Severity of symptoms: At their worst the symptoms were moderate in the emergency department the symptoms have improved. The patient has experienced similar episodes in the past. Reports sob since unknown time period, worse with exertion and at night when laying flat, recently admitted for pneumonia, and has been having increased difficulty breathing since going home. EMS states O2 sats low 80s after minimal exertion, initial BP > 200 systolic, improved with bipap and nitro paste. Patient feels better. Denies pain. Denies trauma. . Historical: - Allergies: 23:49 PENICILLINS; jd3 23:49 Imodium Multi-Symptom Relief; jd3 - Home Meds: 23:49 Acticlate 150 mg Oral tab 1 tab daily [Active]; carvedilol 6.25 mg Oral tab 1 tab 2 jd3 times per day [Active]; glimepiride 4 mg Oral tab 1 tab once daily [Active]; levothyroxine 112 mcg tab 1 tab once daily [Active]; lisinopril-hydrochlorothiazide 20-12.5 mg Oral tab 1 tab once daily [Active]; metformin 500 mg Oral Tb24 4 tabs once daily [Active]; - PMHx: 23:49 Diabetes - NIDDM; Hypertension; jd3 - Immunization history:: Adult Immunizations up to date. - Social history:: Smoking status: unknown. - Family history:: not pertinent. - Hospitalizations: : Patient was recently seen at. ROS: 23:52 Constitutional: Negative for fever, chills, and weight loss, Eyes: Negative for injury, rn pain, redness, and discharge, Cardiovascular: Negative for chest pain, palpitations, + edema Respiratory: + sob Abdomen/GI: Negative for abdominal pain, nausea, vomiting, diarrhea, and constipation, MS/Extremity: + swelling of legs Skin: Negative for injury, rash, and discoloration, Neuro: Negative for headache, weakness, numbness, tingling, and seizure. Exam: 23:52 Constitutional: Overweight female, on bipap, + tachypnea Head/Face: Normocephalic, rn atraumatic. Cardiovascular: Regular rate and rhythm. No pulse deficits. Respiratory: + moderate tachypnea, diminished breath sounds at bases. Abdomen/GI: soft, non-tender Skin: Warm, dry, no evidence of cellulitis MS/ Extremity: Pulses equal, no cyanosis. 3+ pitting edema bilateral lower ext below knee. Neuro: Awake and alert, GCS 15 Vital Signs: 23:47 BP 130 / 58; Pulse 77; Resp 25 S; Temp 96.6(A); Pulse Ox 100% on R/A; Weight 111.13 kg jd3 (R); Height 5 ft. 6 in. (167.64 cm) (R); Pain 0/10; 04/03 00:47 BP 131 / 99; Pulse 72; Resp 18; Temp 98.9(C); Pulse Ox 99% on 30% BiPAP; mg2 02:28 BP 114 / 70; Pulse 72; Resp 18; Temp 98.3; Pulse Ox 100% on 30% BiPAP; mg2 02:39 BP 128 / 63; Pulse 74; Resp 19; Pulse Ox 98% on BiPAP; ea 04/02 23:47 Body Mass Index 39.54 (111.13 kg, 167.64 cm) jd3 Procedures: 06:56 Intubation: Intubated orally with 7.5 mm ETT. was successful on first attempt. Tube rn secured with ETT jean at right side of mouth measured 23 cm at teeth. Placement verified by CXR, auscultating bilateral breath sounds, O2 saturation after procedure was 97 %. Patient tolerated well. Central Line: the site was prepped with Betadine, in sterile fashion, a triple lumen catheter was inserted, in the right in 1 attempts. placement was verified, by blood return, the site was dressed with Tegaderm, using sterile technique, the patient tolerated the procedure, well. MDM: 04/02 23:42 Patient medically screened. rn 04/03 00:37 ED course: Bedside u/s does not reveal significant pericardial effusion, shows rn abdominal ascites, awaiting labs and cxr, could be anasarca 2/2 cirrhosis vs CHF. Pt improving on bipap. . 01:43 Differential diagnosis: CHF exacerbation, Myocardial Infarction pneumonia, Pneumothorax rn pulmonary edema, anasarca, renal failure. 01:44 Data reviewed: vital signs, nurses notes, lab test result(s), EKG, radiologic studies, rn plain films, and as a result, I will admit patient. Counseling: I had a detailed discussion with the patient and/or guardian regarding: the historical points, exam findings, and any diagnostic results supporting the discharge/admit diagnosis, lab results, radiology results, the need for further work-up and treatment in the hospital. Response to treatment: the patient's symptoms have markedly improved after treatment, and as a result, I will admit patient. ED course: Pt markedly improved, radiology reports suspected right basilar pneumonia, abx written, clinically seems more like anasarca given ascites/insidious onset, orthopnea, and diffuse edema. Given lasix 40mg. Will admit to Dr. Greer for anasarca, possible pneumonia, respiratory distress. . 06:49 ED course: Pt coded upstairs, brought back downstairs for ICU admission. 2 rounds of corn cutter, epi x 1, atropine x 1, and intubation, patient regained pulse. BP stable, given dilaudid for pain control. Opens eyes to painful stimuli. Pt found cyanotic, unresponsive in bed when I arrived, chest compressions had been started by nursing, was told that patient might have pulled off her nasal cannula. When I asked why patient was not on BIPAP like she was in ER and admission orders specified to do so, told respiratory therapy thought she was fine on nasal cannula so made decision to keep her on nasal cannula. BIPAP was not hooked up or operational. Called Dr. Greer twice, once on cell and another on house line, no answer, message left. Started on sedation as she is biting ETT.. 04/02 23:43 Order name: Hepatic Function; Complete Time: 01: rn 04/02 23:43 Order name: Blood Culture Adult (2) rn 04/02 23:43 Order name: BMP; Complete Time: 01: rn 04/02 23:43 Order name: CBC with Diff; Complete Time: 01:30 rn 04/02 23:43 Order name: Magnesium; Complete Time: 01: rn 04/02 23:43 Order name: NT PRO-BNP; Complete Time: 01: rn 04/02 23:43 Order name: BIPAP rn 04/02 23:43 Order name: XRAY CXR (1 view) rn 04/02 23:43 Order name: PT-INR; Complete Time: 01: rn 04/02 23:43 Order name: Ptt, Activated; Complete Time: 01: rn 04/02 23:43 Order name: Troponin (emerg Dept Use Only); Complete Time: 01: rn 04/02 23:43 Order name: Procalcitonin; Complete Time: : rn 04/03 00:07 Order name: Urine Dipstick--Ancillary (enter results); Complete Time: 01:30 mw2 04/03 00:22 Order name: CBC Smear Scan; Complete Time: :30 EDMS 04/02 23:43 Order name: Call RT; Complete Time: 00:56 rn 04/02 23:43 Order name: EKG; Complete Time: 23:44 rn 04/02 23:43 Order name: Cardiac monitoring; Complete Time: 00:02 rn 04/02 23:43 Order name: EKG - Nurse/Tech; Complete Time: 00:02 rn 04/02 23:43 Order name: IV Saline Lock; Complete Time: 00:02 rn 04/02 23:43 Order name: Labs collected and sent; Complete Time: 00:02 rn 04/02 23:43 Order name: O2 Per Protocol; Complete Time: 00:02 rn 04/02 23:43 Order name: O2 Sat Monitoring; Complete Time: 00:02 rn 04/02 23:43 Order name: Comer; Complete Time: 00:02 rn Administered Medications: 00:05 Drug: Lasix 40 mg Route: IVP; Site: right antecubital; mg2 01:28 Follow up: Response: No adverse reaction mg2 01:52 Drug: LevaQUIN 500 mg Volume: 100 ml; Route: IVPB; Infused Over: 60 mins; Site: left mg2 forearm; 02:49 Follow up: Response: No adverse reaction; IV Status: Completed infusion; IV Intake: mg2 100ml Disposition: 01:44 Critical Care:. rn Disposition: 04/03/20 01:46 Hospitalization ordered by Chau Greer for Inpatient Admission. Preliminary diagnosis are Pneumonia, unspecified organism, Anasarca, Hypoxemia. - Bed requested for Telemetry/MedSurg (Inpatient). - Status is Inpatient Admission. ea - Condition is Stable. - Problem is an ongoing problem. - Symptoms have improved. Critical care time excluding procedures: :44 Critical care time: Bedside Care: 30 minutes. Total time: 30 minutes rn Signatures: Dispatcher [employer] EDMS Leny Jimenez RN RN Elias Diego MD MD rn Garcia, Cindy RN Macarena Juarez RN Pasha Mills ea RN RN jRalph Villeda RN RN mg2 Corrections: (The following items were deleted from the chart) 04/02 23:55 23:52 Constitutional: Negative for fever, chills, and weight loss, Eyes: Negative for rn injury, pain, redness, and discharge, Cardiovascular: Negative for chest pain, palpitations, + edema Respiratory: + sob Abdomen/GI: Negative for abdominal pain, nausea, vomiting, diarrhea, and constipation, MS/Extremity: + swelling of legs Neuro: Negative for headache, weakness, numbness, tingling, and seizure, rn 04/03 02:38 01:46 Hospitalization Ordered by Chau Greer MD for Inpatient Admission. Preliminary cg diagnosis is Pneumonia, unspecified organism; Anasarca; Hypoxemia. Bed requested for Telemetry/MedSurg (Inpatient). Status is Inpatient Admission. Condition is Stable. Problem is an ongoing problem. Symptoms have improved. rn 03:13 02:38 04/03/2020 01:46 Hospitalization Ordered by Chau Greer MD for Inpatient ea Admission. Preliminary diagnosis is Pneumonia, unspecified organism; Anasarca; Hypoxemia. Bed requested for Telemetry/MedSurg (Inpatient). Status is Inpatient Admission. Condition is Stable. Problem is an ongoing problem. Symptoms have improved. cg
--- NOTE | 2020-04-03 01:47 | ER ---
Nurse's Notes [facility] Name: Zeinab Taveras Age: 59 yrs Sex: Female : 1960 Arrival Date: 04/02/2020 Time: 23:41 Bed 2 Private MD: Diagnosis: Pneumonia, unspecified organism;Anasarca;Hypoxemia Presentation: 04/02 23:42 Chief complaint: EMS states: "we were called out for a pt in respiratory distress. on jd3 arrival her oxygen was 96-97 while she was on room air breathing in a tripod position. we had her stand up and her saturation immediately dropped to the lower 80's. her lung sounds were initially clear and when she stood up they became almost absent. we placed her on our C-pap with a Peep of 10 and FiO2 of 100 and her saturation came back up to 100%. we also gave 2 in of nitro to left chest because of systolic blood pressures in the 200's. we also started a 22 G IV to the right AC. she reported some relief from the shortness of breath after being placed on the C-pap.". Coronavirus screen: difficulty breathing, shortness of breath, Client presents with at least one sign or symptom that may indicate coronavirus-19. Standard/surgical mask placed on the client. Provider contacted for isolation considerations. Ebola Screen: Patient negative for fever greater than or equal to 101.5 degrees Fahrenheit, and additional compatible Ebola Virus Disease symptoms. Initial Sepsis Screen: Does the patient meet any 2 criteria? RR > 20 per min. No. Patient's initial sepsis screen is negative. Does the patient have a suspected source of infection? No. Patient's initial sepsis screen is negative. Risk Assessment: Do you want to hurt yourself or someone else? Patient reports no desire to harm self or others. Onset of symptoms was April 02, 2020. 23:42 Method Of Arrival: EMS: [facility] jd3 23:42 Acuity: SANCHEZ 1 jd3 Triage Assessment: 04/03 00:49 General: Behavior is calm, cooperative. mg2 Historical: - Allergies: 04/02 23:49 PENICILLINS; jd3 23:49 Imodium Multi-Symptom Relief; jd3 - Home Meds: 23:49 Acticlate 150 mg Oral tab 1 tab daily [Active]; carvedilol 6.25 mg Oral tab 1 tab 2 jd3 times per day [Active]; glimepiride 4 mg Oral tab 1 tab once daily [Active]; levothyroxine 112 mcg tab 1 tab once daily [Active]; lisinopril-hydrochlorothiazide 20-12.5 mg Oral tab 1 tab once daily [Active]; metformin 500 mg Oral Tb24 4 tabs once daily [Active]; - PMHx: 23:49 Diabetes - NIDDM; Hypertension; jd3 - Immunization history:: Adult Immunizations up to date. - Social history:: Smoking status: unknown. - Family history:: not pertinent. - Hospitalizations: : Patient was recently seen at. Screenin/24 00:03 Abuse screen: Denies threats or abuse. Denies injuries from another. Nutritional mg2 screening: No deficits noted. Tuberculosis screening: No symptoms or risk factors identified. Fall Risk IV access (20 points). Assessment: 00:03 General: Appears comfortable. mg2 00:03 Pain: Denies pain. Neuro: Level of Consciousness is awake, alert, obeys commands, mg2 Oriented to person, place, time, situation. Cardiovascular: Capillary refill < 3 seconds Patient's skin is warm and dry. Respiratory: Reports shortness of breath. GI:. : No signs and/or symptoms were reported regarding the genitourinary system. EENT: No signs and/or symptoms were reported regarding the EENT system. Derm: Skin is intact, is healthy with good turgor, Skin is pink, warm \\T\\ dry. normal. Musculoskeletal: Circulation, motion, and sensation intact. Capillary refill < 3 seconds, Swelling present in right leg and left leg. 00:03 Reassessment: BIPAP started by RT. mg2 00:45 Reassessment: Mr. Taveras () [phone]. ea 00:48 Reassessment: Patient appears in no apparent distress at this time. Patient and/or mg2 family updated on plan of care and expected duration. Pain level reassessed. Patient is alert, oriented x 3, equal unlabored respirations, skin warm/dry/pink. 01:25 Reassessment: Patient and/or family updated on plan of care and expected duration. Pain ea level reassessed. Pt alert and oriented x 3. Pt remains on BiPAP, tolerating well. Denies pain at this time. 02:27 Reassessment: patient agreed to be hospitalized. mg2 02:50 Reassessment: primary nurse will call me back to receive the report. mg2 Vital Signs: 04/02 23:47 BP 130 / 58; Pulse 77; Resp 25 S; Temp 96.6(A); Pulse Ox 100% on R/A; Weight 111.13 kg jd3 (R); Height 5 ft. 6 in. (167.64 cm) (R); Pain 0/10; 04/03 00:47 BP 131 / 99; Pulse 72; Resp 18; Temp 98.9(C); Pulse Ox 99% on 30% BiPAP; mg2 02:28 BP 114 / 70; Pulse 72; Resp 18; Temp 98.3; Pulse Ox 100% on 30% BiPAP; mg2 02:39 BP 128 / 63; Pulse 74; Resp 19; Pulse Ox 98% on BiPAP; ea 04/02 23:47 Body Mass Index 39.54 (111.13 kg, 167.64 cm) jd3 ED Course: 04/02 23:41 Patient arrived in ED. jd3 23:42 Elias Mosley MD is Attending Physician. rn 23:46 Ralph Lazcano RN is Primary Nurse. mg2 23:47 Triage completed. jd3 23:48 Arm band placed on. EKG completed in triage. Results shown to MD. jd3 04/03 00:01 Inserted saline lock: 22 gauge in left forearm, using aseptic technique. jd3 00:03 Patient has correct armband on for positive identification. Door closed. Warm blanket mg2 given. 00:04 No provider procedures requiring assistance completed. Maintain EMS IV. Dressing mg2 intact. Good blood return noted. Site clean \\T\\ dry. Gauge \\T\\ site: 20 \\T\\RAC. 00:05 Comer cath inserted, using sterile technique, 16 Fr., by me, returned humaira urine. mg2 Patient tolerated well. 01:03 XRAY CXR (1 view) In Process Unspecified. EDMS 01:46 Chau Greer MD is Hospitalizing Provider. rn Administered Medications: 00:05 Drug: Lasix 40 mg Route: IVP; Site: right antecubital; mg2 01:28 Follow up: Response: No adverse reaction mg2 01:52 Drug: LevaQUIN 500 mg Volume: 100 ml; Route: IVPB; Infused Over: 60 mins; Site: left mg2 forearm; 02:49 Follow up: Response: No adverse reaction; IV Status: Completed infusion; IV Intake: mg2 100ml Intake: 02:49 IV: 100ml; Total: 100ml. mg2 Outcome: 01:46 Decision to Hospitalize by Provider. rn 03:00 Admitted to Tele accompanied by tech, via stretcher, with oxygen, with chart, Report mg2 called to MALU curiel 03:00 Condition: stable 03:00 Instructed on the need for admit. 03:13 Patient left the ED. michael Signatures: Dispatcher [employer] EDMS Elias Mosley MD MD rn Antunez, Elena, RN RN ea Davies, Jonathon, RN RN jd3 Gardose, Michele, RN RN mg2 Corrections: (The following items were deleted from the chart) 04/02 23:50 23:42 Initial Sepsis Screen: Does the patient meet any 2 criteria? RR > 20 per min. No. jd3 Patient's initial sepsis screen is negative. Does the patient have a suspected source of infection? No. Patient's initial sepsis screen is negative. jd3 04/03 01:29 01:29 Reassessment: BIPAP started by RT mg2 mg2 02:51 02:28 BP 114 / 70; Pulse 72bpm; Resp 18bpm; Pulse Ox 100% RA; Temp 98.3F; mg2 mg2
[2020-04-03] MEDS ORDERED: Levofloxacin500mg IV 500 MG/100 ML BAG IV ONE (01:57)
[2020-04-03] MEDS ORDERED: IPRATROPIUM BROM 0.5MG/2.5ML NEB PRN (02:45)
[2020-04-03] MEDS ORDERED: ONDANSETRON 4 MG/2 ML VIAL IV PRN (02:45)
[2020-04-03] MEDS ORDERED: ALBUTEROL 2.5 MG/3 ML NEB SOL NEB PRN (02:45)
[2020-04-03 03:53] VITALS: BMI 40.3
[2020-04-03] MEDS ORDERED: NALOXONE 0.4 MG/ML VIAL ONE (06:07)
[2020-04-03] MEDS ORDERED: NALOXONE HCL 2 MG/2 ML VIAL ONE (06:08)
[2020-04-03] MEDS ORDERED: HYDROMORPHONE HCL 2 MG/ML inj ONE (06:17)
[2020-04-03] MEDS: propofoL 1,000 MG/100 ML VIAL IV PRN ×3 (07:20→23:00)
[2020-04-03] MEDS ORDERED: DOPAMINE/D5W 400 MG/250 ML BAG IV ONE ×2 (07:29→15:02)
[2020-04-03] MEDS: INSULIN -REGULAR HUMAN 50 UNIT/0.5 ML ML SQ SCH ×4 (07:30→20:42)
--- NOTE | 2020-04-03 08:53 | RAD REPORT ---
EXAM DESCRIPTION: RAD - Chest Single View - 04/03/2020 7:27 am CLINICAL HISTORY: INTUBATION Chest pain. COMPARISON: Chest Single View dated 04/03/2020; Chest Pa And Lat (2 Views) dated 03/21/2020; Chest Pa And Lat (2 Views) dated 03/06/2020; Chest Single View dated 02/19/2017 FINDINGS: Portable technique limits examination quality. Endotracheal tube tip is just 1 cm into the right mainstem bronchus.
--- NOTE | 2020-04-03 08:57 | RAD REPORT ---
EXAM DESCRIPTION: RAD - Chest Single View - 04/03/2020 7:27 am CLINICAL HISTORY: INTUBATION Chest pain. COMPARISON: Chest Single View dated 04/03/2020; Chest Single View dated 04/03/2020; Chest Pa And Lat ( 2 Views) dated 03/21/2020; Chest Pa And Lat (2 Views) dated 03/06/2020 FINDINGS: Portable technique limits examination quality. Tip of the endotracheal tube is above the leslee. Enteric tube is entering the stomach.
[2020-04-03 09:00] LABS: Albumin 2.5 g/dL (3.4-5.0); Potassium 4.4 mmol/L (3.5-5.1); Protein, Total 7.5 g/dL (6.4-8.2)
[2020-04-03] MEDS ORDERED: METHYLPREDNISOLONE 125 MG INJ IV SCH (09:00)
[2020-04-03] MEDS ORDERED: Enoxaparin 120 MG/0.8 ML SYR SQ SCH (09:00)
[2020-04-03] MEDS ORDERED: FUROSEMIDE 40 MG/4 ML VIAL IV SCH (09:00)
[2020-04-03 09:08] LABS: Thyroid Stimulating Hormone 40.2 uIU/mL (0.360-3.740)
[2020-04-03 09:25] LABS: MPV 8.7 fL (7.6-11.3)
[2020-04-03 09:45] LABS: Platelet Estimate DECR
[2020-04-03] MEDS ORDERED: ENOXAPARIN 40 MG/0.4 ML SQ SCH (10:00)
[2020-04-03 10:18] LABS: Arterial Blood Carboxyhemoglob 1.6 % (0-1.5); Blood Gas Oxyhemoglobin 90.5 % (94-97); Blood O2 Saturation 92.8 % (92-98.5)
[2020-04-03] MEDS: Levofloxacin500mg IV 500 MG/100 ML BAG IV SCH (10:25)
[2020-04-03] MEDS ORDERED: ENOXAPARIN 40 MG/0.4 ML SQ ONE (10:28)
[2020-04-03] MEDS ORDERED: METHYLPREDNISOLONE 40 MG INJ ONE (10:28)
--- NOTE | 2020-04-03 11:42 | RAD REPORT ---
EXAM DESCRIPTION: Chest Single View CLINICAL HISTORY: DYSPNEA COMPARISON: None. TECHNIQUE: XR CHEST 1 VIEW 04/02/2020 11:43 PM CDT FINDINGS: The heart is enlarged. There is mild bibasilar airspace disease. There may be small pleura l effusions. There is no pneumothorax. There are no acute osseous findings. IMPRESSION: Suspect right basilar pneumonia. Electronically signed by: Yinka Velazquez MD 04/03/2020 1:21 AM CDT Due to temporary technical issues with the PACS/Fluency reporting system, reports are being signed by the in house radiologist without review as a courtesy to ensure prompt reporting. The interpreting r adiologist is fully responsible for the content of the report.
--- NOTE | 2020-04-03 11:54 | P.CNS ---
Date of Consult: 04/03/20 Reason for Consult: Resp failure Chief Complaint: SOB History of Present Illness: Called . SOb acute last night, Mo fever C SOB. Cirhosis of liver Allergies loperamide [From Imodium A-D] Allergy (Verified 11/17/18 07:28) Hives Penicillins Allergy (Verified 11/17/18 07:28) Anaphylaxis Home Medications: Glimepiride [Amaryl] 4 mg PO DAILY 07/10/15 Metformin HCl [Metformin HCl ER] 1,000 mg PO BID 07/10/15 carvediloL [Coreg] 12.5 mg PO DAILY 07/21/18 Furosemide 20 mg PO DAILY 04/03/20 Irbesartan/Hydrochlorothiazide [Avalide 150-12.5 mg Tablet] 1 each PO DAILY 04/03/20 Levothyroxine Sodium [Synthroid] 137 mcg PO [id number] 04/03/20 Spironolactone 50 mg PO DAILY 04/03/20 Trazodone [Desyrel] 100 mg PO BEDTIME PRN 04/03/20 - Past Medical/Surgical History Diabetic: Yes -: non-alcoholic cirrhosis -: NIDDM -: HTN -: hysterectomy - Social History Alcohol use: No CD- Drugs: No Caffeine use: Yes Place of Residence: Home Review of Systems is unable to be obtained Physical Examination Temp Pulse Resp BP Pulse Ox 98.3 F 89 16 109/68 96 04/03/20 08:15 04/03/20 11:30 04/03/20 11:30 04/03/20 11:30 04/03/20 11:30 General: Unresponsive Respiratory: Clear to auscultation bilaterally Cardiovascular: Normal S1 S2, Edema Gastrointestinal: Normal bowel sounds, Soft and benign Laboratory Data (last 24 hrs) 04/02/20 23:40: WBC 5.6, Hgb 10.7 L, Hct 31.3 L, Plt Count 75 L 04/02/20 23:40: Sodium 141, Potassium 4.3, BUN 25 H, Creatinine 1.38 H, Glucose 136 H, Magnesium 2.3, Total Bilirubin 1.8 H, AST 32, ALT 12, Alkaline Phosphatase 62 04/02/20 00:52: PT 19.6 H, INR 1.68, APTT 35.2 - Problems (1) Respiratory failure Current Visit: Yes Status: Acute Plan: Pt on vent. tongue swollen. Cirrhosis of liver Macrocytic anemia/ ABG satisfactory. CXRY hazy COVID test pending. Add steroids Hypothyroid. Add Synthroid IV Ct angio when COVID neg CRP elevated. DW Qualifiers: Chronicity: unspecified
[2020-04-03] MEDS ORDERED: VANCOMYCIN 2 GM in NA CHLORIDE 0.9% 500 ML IVPB SCH (13:00)
[2020-04-03] MEDS ORDERED: NACHLORIDE 0.45% 1,000 ML IV SCH (13:00)
[2020-04-03 13:07] LABS: CKMB Creatine Kinase MB 1.7 ng/mL (0.3-3.6); Creatine Phosphokinase 72 U/L (26-192); Troponin I < 0.02 ng/mL (0.0-0.045)
[2020-04-03] MEDS: LEVOTHYROXINE SODIUM 100 MCG VIAL IV SCH (13:57)
--- NOTE | 2020-04-03 13:59 | RAD REPORT ---
EXAM DESCRIPTION: US - Abdomen Exam Complete - 04/03/2020 1:45 pm CLINICAL HISTORY: Abdominal pain COMPARISON: January 2020 FINDINGS: Cirrhotic liver. A discrete lesion not seen. Evaluation is limited. Patient has a known gallstones were not clearly visualized on this exam. Gallbladder wall is thickene d. Common bile duct normal caliber Kidneys and spleen poorly visualized secondary to body habitus and patient being intubated. The pancreas, abdominal aorta and inferior vena cava poorly visualized secondary to overlying bowel g as Small to moderate amount of ascites IMPRESSION: Cirrhotic liver. Thickened gallbladder wall probably secondary to hypoalbuminemia. Cholecystitis can also have this ap pearance. Limited examination
[2020-04-03] MEDS ORDERED: NACHLORIDE 0.45% 1,000 ML IV ONE (14:03)
[2020-04-03] MEDS ORDERED: DOPAMINE/D5W 400 MG/250 ML BAG IV PRN (14:54)
--- NOTE | 2020-04-03 15:01 | CON ---
Date of Consultation: 04/03/2020 Reason For Consultation: Post cardiac arrest. History Of Present Illness: This is a 59-year-old female, who was admitted initially to the floor du e to shortness of breath and probably had a question of pneumonia and it was under the workup to rule out COVID-19. The patient is known to have liver cirrhosis. Apparently, she became severely hypoxi c and then she became bradycardic and went into pulseless electrical activity and a Code Blue was clyde led and the patient was resuscitated very quickly and regained a rhythm and the patient stabilized; h owever, intubated during this process and at this point is on the ventilator and maintaining oxygen s aturation very well, and she apparently was blue at the time of the bradycardia and the code prior to this dictation. Past Medical History: As per chart diabetes, hypertension, cirrhosis of the liver. Medications: Refer to reconciliation sheet. Allergies: PENICILLINS, LOPERAMIDE. Past Surgical History: . Social History: Not known. The patient is not able to answer questions. Most part of this document is obtained from the records. Review of Systems: All systems reviewed and negative except for mentioned in the HPI. Physical Examination: Vital Signs: Temperature is 97.3, pulse 86, breathing at 16, blood pressure 107/64, saturating 100%, now on 60% of the ventilator. General: This is a middle-aged female, obese, breathing well with a vent. Head and Neck: Pupils are reactive, but sluggish. No JVD is appreciated; however, she is a very obe se. Lungs: Rhonchi bilaterally. No use of accessory muscles or muscle retraction. Heart: Regular rate and rhythm. No extra sounds. Abdomen: Soft. Bowel sounds positive. No rigidity or rebound. Extremities: Edema bilaterally. No clubbing, cyanosis. Intact pulses. Skin: No rash. Neuro: Sedated on the vent. Lymph Nodes: No cervical or axillary lymphadenopathy. Investigations: The initial chest x-ray on arrival showed a right basilar pneumonia. The sodium is 140, BUN 27, creatinine 1.57. The TSH is 40. Procalcitonin is less than 0.05. Troponin less than 0 .02. BNP is 254 on admission. Assessment And Recommendations: 1.Status post cardiac arrest with pulseless electrical activity. This could be due to the severe hy poxia. Etiology is not clear of hypoxia at this point and pulmonary embolism needs to be ruled out. Recommend to check D-dimer if elevated and to check a CT angiogram of the lungs, Also COVID-19 is po ssibility. Recommend checking the status of coronavirus and the patient is being managed on the vent ilator per Pulmonary. 2.Acute respiratory failure. Again, etiology can be multifactorial pneumonia versus a congestive he art failure. Procalcitonin is negative. I would recommend to do serial sets of cardiac enzymes and obtain echocardiogram and if the patient will have a central line CVP measurements can be helpful in guiding treatment. 3.Severe hypothyroidism to be treated with LT4. Thank you for the courtesy of this consultation. /LAUREN Voice ID: [id number] Report ID: [id number]
[2020-04-03] MEDS ORDERED: propofoL 1,000 MG/100 ML VIAL IV ONE (15:02)
--- NOTE | 2020-04-03 17:59 | P.HP ---
Certification for Inpatient Patient admitted to: Inpatient With expected LOS: >2 Midnights Practitioner: I am a practitioner with admitting privileges, knowledge of patient current condition, hospital course, and medical plan of care. 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 PLAN WAS TO DO REPEAT CXR BUT ALL OF A SUDDEN SHE HAD SEVERE DYSPNEA LAST NIGHT. SHE COMES TO ER, WAS STABLIZED ON DIURETIC, SHE WAS SENT TO FLOOR AND SHE HAD SUDDEN CARDIAC ARREST. SHE WAS REVIVED. SHE HAD PULSELESS RHYTHM. SHE IS NOW IN ICU INTUBATED AND UNCONSCIOUS. I TALKED TO TODAY TO GET HISTORY. Allergies loperamide [From Imodium A-D] Allergy (Verified 11/17/18 07:28) Hives Penicillins Allergy (Verified 11/17/18 07:28) Anaphylaxis Home Medications: Glimepiride [Amaryl] 4 mg PO DAILY 07/10/15 Metformin HCl [Metformin HCl ER] 1,000 mg PO BID 07/10/15 carvediloL [Coreg] 12.5 mg PO DAILY 07/21/18 Furosemide 20 mg PO DAILY 04/03/20 Irbesartan/Hydrochlorothiazide [Avalide 150-12.5 mg Tablet] 1 each PO DAILY 04/03/20 Levothyroxine Sodium [Synthroid] 137 mcg PO [id number] 04/03/20 Spironolactone 50 mg PO DAILY 04/03/20 Trazodone [Desyrel] 100 mg PO BEDTIME PRN 04/03/20 - Past Medical/Surgical History Has patient received pneumonia vaccine in the past: No Diabetic: Yes -: non-alcoholic cirrhosis -: NIDDM -: HTN -: hysterectomy - Social History Smoking Status: Never smoker Alcohol use: No CD- Drugs: No Caffeine use: Yes Place of Residence: Home Review of Systems is unable to be obtained Physical Examination - Vital Signs Temperature: 97.7 F Blood Pressure: 106/53 Pulse: 78 Respirations: 17 Pulse Ox (%): 94 - Physical Exam General: Moderate distress, Obese, Other (INTUBATED) HEENT: Atraumatic, PERRLA, Mucous membr. moist/pink, Other (TONGUE EDEMA.), EOMI, Sclerae nonicteric Neck: Supple, 2+ carotid pulse no bruit, No LAD, Without JVD or thyroid abnormality Respiratory: Diminished Cardiovascular: Regular rate/rhythm, Normal S1 S2 Gastrointestinal: Normal bowel sounds, No tenderness Musculoskeletal: No tenderness Integumentary: No rashes Neurological: Normal gait, Normal speech, Normal strength at 5/5 x4 extr, Normal tone, Normal affect Lymphatics: No axilla or inguinal lymphadenopathy - Studies Laboratory Data (last 24 hrs) 04/02/20 23:40: WBC 5.6, Hgb 10.7 L, Hct 31.3 L, Plt Count 75 L 04/02/20 23:40: Sodium 141, Potassium 4.3, BUN 25 H, Creatinine 1.38 H, Glucose 136 H, Magnesium 2.3, Total Bilirubin 1.8 H, AST 32, ALT 12, Alkaline Phosph atase 62 04/02/20 00:52: PT 19.6 H, INR 1.68, APTT 35.2 Microbiology Data (last 24 hrs): 04/03/20 00:05 Blood - Blood Anaerobic Blood Culture - Final Assessment and Plan - Problems (Diagnosis) (1) Primary hypothyroidism Current Visit: Yes Status: Chronic Plan: HER TSH HAS BEEN CLOSE TO NORMAL BEFORE BUT HIGH THIS TIME. AGREE WITH IV LEVOTHYROIXIINE FOR POSSIBLE MYXEDEMA COMA. (2) Esophageal varices Current Visit: Yes Status: Chronic Plan: SHE GOES TO DR. VILLANUEVA FOR BANDING. Qualifiers: Esophageal varices type: secondary Esophageal varices bleeding: without bleeding Qualified Code(s): I85.10 - Secondary esophageal varices without bleeding (3) Respiratory failure Current Visit: Yes Status: Acute Plan: IT IS UNCCLEAR WHY SHE GOT WORSE. COVID IS NEGATIVE. X RAY SHOWS UNILATERAL PNEUMONIA PER DR. PERRY. I CALLED HIM. ADD VANCOMYCIN UNTIL MORE CLEAR IDEA. STOP DIURETICS ALREADY HER CREATININE IS GETTING HIGHER AFTER A DOSE OF LASIX. WHEN CREATININE STABLIIZES WE WILL DO CT SCAN. I HAD ASKED HER TO DO CT SCAN OF CHEST BUT SHE DID NOT WANT TO. PNEUMONIA, PE OR TUMOR ARE POSSIBILITIES. Qualifiers: Chronicity: acute (4) Diabetes Onset Date: 02/20/17 Current Visit: No Status: Chronic Plan: CHR ,STABLE A1C. Qualifiers: Diabetes mellitus type: type 2 Diabetes mellitus complication status: with kidney complications Chronic kidney disease stage: stage 2 (mild) (5) Liver cirrhosis secondary to nonalcoholic steatohepatitis (ARMAS) Current Visit: No Status: Chronic Plan: DR. SANCHEZ IS TREATING HER. THERE IS NOT MUCH HE CAN DO TO CURE EXCEPT FOR LIVER TRANSPLANT IF SHE IS STABLE AT A LATER DATE. - Advance Directives Does patient have a Living Will: No Does patient have a Durable POA for Healthcare: No
[2020-04-03] MEDS ORDERED: MIDAZOLAM HCL 2 MG/2 ML INJ IV PRN (18:34)
[2020-04-03] MEDS ORDERED: HALOPERIDOL LACT 5 MG/ML INJ IV PRN (18:34)
[2020-04-03] MEDS ORDERED: FENTANYL CITR 100 MCG/2 ML IV PRN (18:34)
[2020-04-03] MEDS ORDERED: EPINEPHrine 1 MG/10 ML SYR IV ONE (18:41)
[2020-04-03] MEDS ORDERED: ATROPINE SULF 1 MG/10 ML SYR IV ONE (18:41)
[2020-04-03 18:58] LABS: CKMB Creatine Kinase MB 1.8 ng/mL (0.3-3.6); Creatine Phosphokinase 82 U/L (26-192); Troponin I < 0.02 ng/mL (0.0-0.045)
[2020-04-03] MEDS ORDERED: FAMOTIDINE 20 MG/2 ML VIAL IV ONE (20:33)
[2020-04-03] MEDS: Enoxaparin 120 MG/0.8 ML SYR SQ SCH (20:41)
[2020-04-03] MEDS: FAMOTIDINE 20 MG/2 ML VIAL IV SCH (20:43)
[2020-04-04] MEDS ORDERED: propofoL 1,000 MG/100 ML VIAL IV ONE ×2 (00:48→06:20)
[2020-04-04 06:07] LABS: Albumin 2.2 g/dL (3.4-5.0); Bilirubin Total 2.1 mg/dL (0.2-1.0); Potassium 4.3 mmol/L (3.5-5.1); Protein, Total 6.5 g/dL (6.4-8.2)
[2020-04-04] MEDS: NACHLORIDE 0.45% 1,000 ML IV SCH ×2 (06:12→10:57)
[2020-04-04] MEDS: propofoL 1,000 MG/100 ML VIAL IV PRN (06:14)
[2020-04-04] MEDS ORDERED: DOPAMINE/D5W 400 MG/250 ML BAG IV ONE (06:19)
[2020-04-04] MEDS ORDERED: NACHLORIDE 0.45% 1,000 ML IV ONE (06:19)
[2020-04-04 06:41] LABS: Absolute Lymphocytes (CBC) 0.7 K/uL (0.7-4.9); Basophils % 0.1 % (0-1.3); Hematocrit 26.3 % (36.0-45.0); Lymphocytes % 6.7 % (15.3-44.8); MPV 8.3 fL (7.6-11.3); RBC Red Blood Cell Count 2.55 M/uL (3.86-4.86)
[2020-04-04] MEDS: INSULIN -REGULAR HUMAN 50 UNIT/0.5 ML ML SQ SCH ×4 (07:30→21:00)
--- NOTE | 2020-04-04 08:44 | P.PN ---
Subjective Date of Service: 04/04/20 Chief Complaint: Respiratory failure Subjective: Improving (Patient is improving she is more cooperative weaned off dopamine animal oxygen) Review of Systems is unable to be obtained Physical Examination - Vital Signs Temperature: 97.9 F Blood Pressure: 132/54 Pulse: 63 Respirations: 16 Pulse Ox (%): 92 - Physical Exam General: Cooperative, Unresponsive Respiratory: Clear to auscultation bilaterally Cardiovascular: Normal S1 S2, Edema Gastrointestinal: Normal bowel sounds, Soft and benign - Studies Microbiology Data (last 24 hrs): 04/03/20 00:05 Blood - Blood Anaerobic Blood Culture - Final Assessment & Plan - Problems (Diagnosis) (1) Respiratory failure Current Visit: Yes Status: Acute Plan: Patient admitted with respiratory failure shock she is currently weaned off dopamine with wean off the ventilator she is alert cooperative renal function is slightly worse cultures are negative I have ordered a CT of the chest without contrast Dopplers of lower extremity pending agree with full-dose Lovenox for now has a blood cultures and negative Dc vancomycin for now may factor kidney function sputum cultures ordered patient is hypothyroid on IV Synthroid Qualifiers: Chronicity: acute
[2020-04-04] MEDS ORDERED: FAMOTIDINE 20 MG/2 ML VIAL IV ONE (08:46)
--- NOTE | 2020-04-04 08:55 | RAD REPORT ---
EXAM DESCRIPTION: USExtrem Venous W Compress Bil04/04/2020 8:41 am CLINICAL HISTORY: leg swelling/elevated D-dimer COMPARISON: January 2020 FINDINGS: The examination is somewhat limited secondary to body habitus and leg swelling The common femoral, superficial femoral, and popliteal veins bilaterally are compressible and demons trate augmentation. Doppler demonstrates good flow. IMPRESSION: No evidence of deep venous thrombosis involving either lower extremity.
--- NOTE | 2020-04-04 08:57 | ECHO ---
HEIGHT: 5 ft 6 in WEIGHT: 250 lb 0 oz DATE OF STUDY: 04/03/[address]: Remberto Pierre MD 2-DIMENSIONAL: YES M.MODE: YES DOPPLER: YES COLOR FLOW: YES TDS: YES PORTABLE: YES DEFINITY: NO BUBBLE STUDY: NO DIAGNOSIS: RESPIRATORY FAILURE CARDIAC HISTORY: CATHERIZATION: NO SURGERY: NO PROSTHETIC VALVE: NO PACEMAKER: NO MEASUREMENTS (cm) DIASTOLIC (NORMALS) SYSTOLIC (NORMALS) IVSd 1.2 (0.6-1.2) LA Diam 2.7 (1.9-4.0) LVEF 70% LVIDd 4.8 (3.5-5.7) LVIDs 2.9 (2.0-3.5) %FS 40% LVPWd 1.3 (0.6-1.2) Ao Diam 2.7 (2.0-3.7) 2 DIMENSIONAL ASSESSMENT: RIGHT ATRIUM: LEFT ATRIUM: RIGHT VENTRICLE: LEFT VENTRICLE: TRICUSPID VALVE: MITRAL VALVE: PULMONIC VALVE: AORTIC VALVE: PERICARDIAL EFFUSION: AORTIC ROOT: LEFT VENTRICULAR WALL MOTION: LIMITED ECHO DOPPLER/COLOR FLOW: COMMENTS: LEFT VENTRICULAR EJECTION FRACTION APPEARS NORMAL WITH EJECTION FRACTION >60%. UNABLE TO EVALUATE REST OF THE STRUCTURE DUE TO TEST BEING LIMITED. TECHNOLOGIST: Tom PATEL
[2020-04-04] MEDS: LEVOTHYROXINE SODIUM 100 MCG VIAL IV SCH (08:59)
[2020-04-04] MEDS: Enoxaparin 120 MG/0.8 ML SYR SQ SCH (08:59)
[2020-04-04] MEDS: FAMOTIDINE 20 MG/2 ML VIAL IV SCH (09:00)
[2020-04-04] MEDS ORDERED: FUROSEMIDE 40 MG/4 ML VIAL IV ONE (10:45)
--- NOTE | 2020-04-04 10:53 | RAD REPORT ---
EXAM DESCRIPTION: Marsha Single View04/04/2020 10:43 am CLINICAL HISTORY: Shortness of breath COMPARISON: April 03 FINDINGS: Endotracheal tube has its tip 4.5 centimeters above the leslee Nasogastric tube has its tip in the stomach Bilateral patchy lung opacities may represent pneumonia Small to moderate left pleural effusion suspected Heart is enlarged
[2020-04-04] MEDS ORDERED: FUROSEMIDE 40 MG in NA CHLORIDE 0.9% 50 ML IV ONE (11:00)
[2020-04-04] MEDS: ALBUMIN HUMAN 25% 100 ML IV SCH ×2 (11:36→22:09)
[2020-04-04] MEDS: MIDODRINE HCL 5 MG TABLET PO SCH ×2 (11:37→22:13)
[2020-04-04] MEDS: OCTREOTIDE ACETATE 100 MCG/ML SQ SCH ×2 (11:37→22:14)
[2020-04-04] MEDS: Levofloxacin500mg IV 500 MG/100 ML BAG IV SCH (11:40)
[2020-04-04] MEDS ORDERED: OCTREOTIDE ACETATE 100 MCG/ML ONE ×2 (11:40→21:59)
[2020-04-04] MEDS ORDERED: ALBUMIN HUMAN 25% 100 ML IV ONE ×2 (11:41→22:01)
[2020-04-04] MEDS ORDERED: Levofloxacin500mg IV 500 MG/100 ML BAG IV ONE (11:50)
--- NOTE | 2020-04-04 12:08 | P.PN ---
Subjective Date of Service: 04/04/20 Chief Complaint: Respiratory failure Subjective: Improving SHE IS RESPONDING TO VERBAL COMMAND NOW. PROPAFOL IS BEING TAPERED. DOPAMIN DRIP GETTING OFF. Review of Systems is unable to be obtained Physical Examination - Vital Signs Temperature: 97.9 F Blood Pressure: 94/60 Pulse: 60 Respirations: 17 Pulse Ox (%): 98 - Physical Exam General: Obese, Other (INTUBATED.) HEENT: Atraumatic, PERRLA, EOMI Neck: Supple, JVD not distended Respiratory: Clear to auscultation bilaterally, Normal air movement Cardiovascular: Regular rate/rhythm, Normal S1 S2 Gastrointestinal: Normal bowel sounds, No tenderness Musculoskeletal: No tenderness Integumentary: No rashes Neurological: Normal speech, Normal tone, Normal affect Lymphatics: No axilla or inguinal lymphadenopathy - Studies Microbiology Data (last 24 hrs): 04/03/20 00:05 Blood - Blood Anaerobic Blood Culture - Final Medications List Reviewed: Yes Assessment And Plan - Current Problems (Diagnosis) (1) Primary hypothyroidism Current Visit: Yes Status: Chronic Plan: HER TSH HAS BEEN CLOSE TO NORMAL BEFORE BUT HIGH THIS TIME. AGREE WITH IV LEVOTHYROIXIINE FOR POSSIBLE MYXEDEMA COMA. (2) Esophageal varices Current Visit: Yes Status: Chronic Plan: SHE GOES TO DR. VILLANUEVA FOR BANDING. Qualifiers: Esophageal varices type: secondary Esophageal varices bleeding: without bleeding Qualified Code(s): I85.10 - Secondary esophageal varices without bleeding (3) Respiratory failure Current Visit: Yes Status: Acute Plan: IT IS UNCCLEAR WHY SHE GOT WORSE. COVID IS NEGATIVE. X RAY SHOWS UNILATERAL PNEUMONIA PER DR. PERRY. I CALLED HIM. ADD VANCOMYCIN UNTIL MORE CLEAR IDEA. STOP DIURETICS ALREADY HER CREATININE IS GETTING HIGHER AFTER A DOSE OF LASIX. WHEN CREATININE STABLIIZES WE WILL DO CT SCAN. I HAD ASKED HER TO DO CT SCAN OF CHEST BUT SHE DID NOT WANT TO. PNEUMONIA, PE OR TUMOR ARE POSSIBILITIES. Qualifiers: Chronicity: acute (4) Diabetes Onset Date: 02/20/17 Current Visit: No Status: Chronic Plan: CHR ,STABLE A1C. Qualifiers: Diabetes mellitus type: type 2 Diabetes mellitus complication status: with kidney complications Chronic kidney disease stage: stage 2 (mild) (5) Liver cirrhosis secondary to nonalcoholic steatohepatitis (ARMAS) Current Visit: No Status: Chronic Plan: DR. SANCHEZ IS TREATING HER. THERE IS NOT MUCH HE CAN DO TO CURE EXCEPT FOR LIVER TRANSPLANT IF SHE IS STABLE AT A LATER DATE. (6) Elevated d-dimer Current Visit: Yes Status: Acute Plan: 20K VENOUS DOP NEG. CT CHEST DONE. CONTINUE IVFLUIDS. (7) Acute on chronic renal failure Current Visit: Yes Status: Acute Plan: RESUME IV FLUIDS. RENAL CONSULT. FU DAILY LAB. Qualifiers: Acute renal failure type: with acute tubular necrosis Chronic kidney disease stage: stage 3 (moderate) Qualified Code(s): N17.0 - Acute kidney failure with tubular necrosis; N18.3 - Chronic kidney disease, stage 3 (moderate)
--- NOTE | 2020-04-04 13:23 | RAD REPORT ---
EXAM DESCRIPTION: CT - Thorax Wo Con - 04/04/2020 10:28 am CLINICAL HISTORY: sob COMPARISON: none TECHNIQUE: Computed axial tomography of the chest was obtained. Contrast was not requested. All CT scans are performed using dose optimization technique as appropriate and may include automated exposure control or mA/KV adjustment according to patient size. FINDINGS: The evaluation of mediastinum, walker and vessels is limited secondary to lack of IV contras t administration. Mild to moderate bilateral alveolar opacities. Endotracheal tube has its tip 4.5 centimeters above the leslee. Nasogastric tube is present within th e stomach No mediastinal or hilar lymphadenopathy is seen. Moderate left pleural effusion. Images of the upper abdomen demonstrate a cirrhotic liver. Moderate amount of ascites IMPRESSION: Mild to moderate bilateral pulmonary opacities probably pneumonia Moderate left pleural effusion
[2020-04-04] MEDS ORDERED: IPRATROPIUM BROM 0.5MG/2.5ML ONE ×2 (16:07→19:53)
[2020-04-04] MEDS ORDERED: ALBUTEROL 2.5 MG/3 ML NEB SOL ONE ×2 (16:07→19:53)
--- NOTE | 2020-04-04 18:29 | CON ---
Date of Consultation: 04/04/2020 Additional Consulting Physician: Chau Greer M.D. Reason For Consultation: Anasarca, elevated BUN and creatinine. History Of Present Illness: All the information has been obtained from the record as the patient been intubated. This is a 59-year-old female with significant past medical history of diabetes, hypertension, hyperlipidemia, hypothyroidism, the patient was in her regular state of health. The patient apparently was admitted with pneumonia and developed cardiac arrest then, the patient required a vent, had low blood pressure and required to be on dopamine, weaned today. The incident happened yesterday, weaned after 24 hour from the dopamine. The patient upon arrival to the hospital, creatinine 1.3. Currently creatinine 1.9. GFR was 39 and currently 26. The patient apparently at home being on FINA inhibitor and metformin with hydrochlorothiazide and spironolactone and Lasix. The patient had severe anasarca. Past Medical History: Include: 1. Cirrhosis. 2. Diabetes complicated with neuropathy. 3. Hypothyroidism. Home Medications: Include glimepiride, metformin, carvedilol 12.5, Lasix 20, irbesartan, hydrochlorothiazide, levothyroxine, spironolactone, trazodone. Allergies: TO LOPERAMIDE AND PENICILLIN. Social History: Denies smoking. Denies drinking. Denies drugs abuse. Review of Systems: None obtainable. Physical Examination: Vital Signs: When I saw the patient, blood pressure 123/66, pulse of 70, afebrile. The patient had in the last 24 hours of 500 of urine output. The last 12 hour has only 150. Chest: Crackles bilateral. Heart: S1 and S2. Systolic murmur. Abdomen: Ascites. Extremities: +2 edema. Neuro: The patient awake, follow simple command as intubated. Laboratory Data: Sodium 140, potassium 4.3, bicarb 25, BUN 34, creatinine 1.9, GFR 26, calcium 7.8. The patient had serum protein electrophoresis back in 2017, no M spike. WBC 10.2, H and H 9.3/26.3, platelet 84. Urinalysis; specific gravity of 1030. Chest x-ray severe cardiomegaly with congestion. Current Medications: The patient on it includes Levaquin 500, dopamine, breathing treatment, levothyroxine, IV fluid at 75 per hour. Assessment And Plan: 1. Acute kidney injury multifactorial, possible secondary to hepatorenal syndrome/poor perfusion acute tubular necrosis secondary to cardiorenal, over volume with severe third spacing. I agree with holding ARB, hydrochlorothiazide. I am going to go ahead and discontinue IV fluid. I am going to start the patient on midodrine and albumin for third space mobilization of the fluid. We will start the patient on Lasix single dose to convert the patient to nonoliguric and we will follow up. I am going to send for full serology for the patient and we will monitor. 2. Anasarca possible secondary to cirrhosis, questionable proteinuria. I am going to send for quantification for the proteinuria with the presence of the anemia. Light chain disease needs to be ruled out. We will send for serum protein electrophoresis. 3. Hepatorenal syndrome. As above, start midodrine, octreotide, and albumin. 4. Over volume. Echocardiogram still pending. Preserved ejection fraction. We will continue diuresis. I am going to send for TSH, protein, creatinine. We will give the patient single dose of Lasix and we will follow up. 5. Diabetes, as by primary. 6. Respiratory failure multifactorial, COVID pneumonia/over volume. We will establish better volume control. time 35 min discussing [facility] patient and arrange treatment with the staff JAIRON Voice ID: [id number] Report ID: [id number] MTDD
[2020-04-04] MEDS: ALBUTEROL 2.5 MG/3 ML NEB SOL NEB PRN (19:49)
[2020-04-04] MEDS: IPRATROPIUM BROM 0.5MG/2.5ML NEB PRN (19:50)
[2020-04-04] MEDS ORDERED: Levofloxacin 750mg IV 750 MG/150 ML BAG IV SCH (21:00)
[2020-04-05] MEDS: IPRATROPIUM BROM 0.5MG/2.5ML NEB PRN ×3 (01:51→14:00)
[2020-04-05] MEDS ORDERED: IPRATROPIUM BROM 0.5MG/2.5ML ONE ×3 (01:59→14:06)
[2020-04-05] MEDS: LEVOTHYROXINE SODIUM 100 MCG VIAL IV SCH (05:59)
[2020-04-05] MEDS ORDERED: LEVOTHYROXINE SODIUM 100 MCG VIAL IV ONE (06:06)
[2020-04-05 06:54] LABS: Absolute Lymphocytes (CBC) 0.5 K/uL (0.7-4.9); Basophils % 0.2 % (0-1.3); Hematocrit 25.2 % (36.0-45.0); Lymphocytes % 7.1 % (15.3-44.8); MPV 8.4 fL (7.6-11.3); RBC Red Blood Cell Count 2.43 M/uL (3.86-4.86)
[2020-04-05 07:30] LABS: Blood Morphology Comment NOTED (NOT SEEN); Platelet Estimate DECR; White Blood Cell Scan OK
[2020-04-05] MEDS: INSULIN -REGULAR HUMAN 50 UNIT/0.5 ML ML SQ SCH ×4 (07:30→21:00)
--- NOTE | 2020-04-05 07:35 | EKG ---
Test Date: 2020-04-03 Test Time: 06:47:24 Back Shoe Cutter: TLT MEASUREMENT RESULTS: Intervals: Rate: 78 WI: QRSD: 108 QT: 436 QTc: 497 [place]: P: WI: QRS: 36 T: 8 INTERPRETIVE STATEMENTS: Accelerated Junctional rhythm Low voltage QRS Cannot rule out Inferior infarct, age undetermined Abnormal ECG Compared to ECG 04/02/2020 23:47:00 Accelerated junctional rhythm now present Sinus rhythm no longer present Short WI interval no longer present Myocardial infarct finding still present Electronically Signed On 04-05-20 07:32:46 CDT by Tom Hart
[2020-04-05 07:38] LABS: Albumin 2.7 g/dL (3.4-5.0); Ferritin 148.3 ng/mL (8-388); Folic Acid, (Folate) 8.6 ng/mL (3.1-17.5); Phosphorus 4.5 mg/dL (2.5-4.9); Potassium 4.4 mmol/L (3.5-5.1); Uric Acid 11.8 mg/dL (2.6-6.0)
--- NOTE | 2020-04-05 08:15 | RAD REPORT ---
EXAM DESCRIPTION: RAD - Chest Single View - 04/05/2020 7:31 am CLINICAL HISTORY: Respiratory failure COMPARISON: Portable April 04 TECHNIQUE: AP portable chest image was obtained 04/05/2020 7:31 am . FINDINGS: Lung volumes are low. No new or progressive right lung field finding. Pleural effusion and lung parenchymal opacification in the left hemithorax has not changed. Medial right base parenchymal opacification similar to comparison. Cardiac silhouette remains enlarged. Central vasculature also r emain prominent. Endotracheal tube and ET tube have been removed. No pneumothorax. IMPRESSION: ET tube and NG tube have been removed since prior study. Left greater than right pleural and parenchymal opacities not clearly different.
[2020-04-05 08:21] LABS: Rheumatoid Factor R (NEG)
[2020-04-05 08:22] LABS: Rheumatoid Factor Titer 1:4 (32 RF IU/mL)
[2020-04-05] MEDS ORDERED: LIDOCAINE 1% MPF 30 ML VIAL ONE (08:52)
[2020-04-05] MEDS: RIVAROXABAN 10 MG TABLET PO SCH (09:00)
[2020-04-05] MEDS ORDERED: Enoxaparin 120 MG/0.8 ML SYR SQ SCH (09:00)
[2020-04-05] MEDS: OCTREOTIDE ACETATE 100 MCG/ML SQ SCH (09:08)
[2020-04-05] MEDS: ALBUMIN HUMAN 25% 100 ML IV SCH ×2 (09:08→20:03)
[2020-04-05] MEDS: FAMOTIDINE 20 MG/2 ML VIAL IV SCH (09:08)
[2020-04-05] MEDS: MIDODRINE HCL 5 MG TABLET PO SCH ×3 (09:09→21:25)
[2020-04-05] MEDS ORDERED: FAMOTIDINE 20 MG/2 ML VIAL IV ONE (09:16)
[2020-04-05] MEDS ORDERED: OCTREOTIDE ACETATE 100 MCG/ML ONE (09:16)
[2020-04-05] MEDS ORDERED: ALBUMIN HUMAN 25% 100 ML IV ONE ×2 (09:16→20:13)
[2020-04-05 11:15] LABS: Urine Appearance CLOUDY; Urine Blood 3+ (NEG); Urine Color DK YELLOW; Urine Glucose NEGATIVE (NEG); Urine Protein 1+ (NEG)
[2020-04-05 11:22] LABS: Urine Protein/Creatinine Ratio 0.27 ratio (<0.15)
[2020-04-05] MEDS: Levofloxacin500mg IV 500 MG/100 ML BAG IV SCH (11:27)
[2020-04-05] MEDS ORDERED: Levofloxacin500mg IV 500 MG/100 ML BAG IV ONE (11:34)
[2020-04-05 11:41] LABS: Urine Bilirubin NEGATIVE (NEG); Urine Microscopic Reflex ORDER UMIC
--- NOTE | 2020-04-05 11:58 | P.PN ---
Subjective Date of Service: 04/05/20 Chief Complaint: Respiratory failure Subjective: Improving (Patient is improving or she is requiring BiPAP schedule for dialysis) Review of Systems General: Weakness Respiratory: Shortness of Breath Physical Examination - Vital Signs Temperature: 97.3 F Blood Pressure: 118/96 Pulse: 71 Respirations: 16 Pulse Ox (%): 98 - Physical Exam General: Alert, Cooperative Respiratory: Clear to auscultation bilaterally, Diminished - Studies Medications List Reviewed: Yes Assessment & Plan - Problems (Diagnosis) (1) Respiratory failure Current Visit: Yes Status: Acute Plan: Patient admitted with respiratory failure doing better she is requiring BiPAP no evidence of sepsis sputum cultures are pending blood cultures and negative renal function worse scheduled for dialysis plan for a CT angiogram once on dialysis patient is on midodrine her blood pressure is little low patient has a significant effusion on the left side may need a thoracentesis ever patient has cirrhosis of the liver patient is on Xarelto vital signs stable Qualifiers: Chronicity: acute
[2020-04-05 12:07] LABS: Urine Bacteria 20-50 /HPF (<20); Urine RBC >50 /HPF (NONE SEEN)
[2020-04-05 12:08] LABS: Calcium Oxalate Crystals- Ur MANY (NONE SEEN); Urine Coarse Granular Casts >10 /LPF (NONE SEEN); Urine Culture Reflex Order REFLEXED; Urine Mucus 2+ /HPF (NONE SEEN); Urine Urothelial Cells <5 /HPF (NONE SEEN)
[2020-04-05] MEDS: ALBUTEROL 2.5 MG/3 ML NEB SOL NEB PRN (14:00)
[2020-04-05] MEDS ORDERED: ALBUTEROL 2.5 MG/3 ML NEB SOL ONE (14:06)
--- NOTE | 2020-04-05 14:53 | P.OP ---
[place] Stitcher: NONE,NONE Preoperative diagnosis: Acute Renal Failure Postoperative diagnosis: Acute Renal Failure Primary procedure: Placement of LEFT Femoral Vein Temporary Hemodialysis Catheter Secondary procedure: Ultrasound Guidance Other procedure(s): Micro-Introducer Used Anesthesia: Local 1% lidocaine Estimated blood loss: <5cc Specimen: None Findings: Dark,Non-pulsatile blood returned Complications: None Transferred to: ICU Condition: Serious
--- NOTE | 2020-04-05 17:52 | P.PN ---
Subjective Date of Service: 04/05/20 Chief Complaint: Respiratory failure Subjective: Improving SHE IS RESPONDING TO VERBAL COMMAND NOW. PROPAFOL IS BEING TAPERED. DOPAMIN DRIP GETTING OFF. SHE IS NOW EXTUBATED, FULLY AWAKE. SHE DENIES ANY CHEST PAIN. STILL FATIGUED. Review of Systems 10-point ROS is otherwise unremarkable General: Weakness, Malaise Physical Examination - Vital Signs Temperature: 97.6 F Blood Pressure: 121/82 Pulse: 73 Respirations: 22 Pulse Ox (%): 100 - Physical Exam General: Alert, Mild distress, Obese HEENT: Atraumatic, PERRLA, EOMI Neck: Supple, JVD not distended Respiratory: Clear to auscultation bilaterally, Normal air movement Cardiovascular: Regular rate/rhythm, Normal S1 S2 Gastrointestinal: Normal bowel sounds, No tenderness Musculoskeletal: No tenderness Integumentary: No rashes Neurological: Normal speech, Normal tone, Normal affect Lymphatics: No axilla or inguinal lymphadenopathy - Studies Microbiology Data (last 24 hrs): 04/03/20 00:05 Blood - Blood Anaerobic Blood Culture - Final Medications List Reviewed: Yes Assessment And Plan - Current Problems (Diagnosis) (1) Primary hypothyroidism Current Visit: Yes Status: Chronic Plan: HER TSH HAS BEEN CLOSE TO NORMAL BEFORE BUT HIGH THIS TIME. AGREE WITH IV LEVOTHYROIXIINE FOR POSSIBLE MYXEDEMA COMA. (2) Esophageal varices Current Visit: Yes Status: Chronic Plan: SHE GOES TO DR. VILLANUEVA FOR BANDING. Qualifiers: Esophageal varices type: secondary Esophageal varices bleeding: without bleeding Qualified Code(s): I85.10 - Secondary esophageal varices without bleeding (3) Respiratory failure Current Visit: Yes Status: Acute Plan: IT IS UNCCLEAR WHY SHE GOT WORSE. COVID IS NEGATIVE. X RAY SHOWS UNILATERAL PNEUMONIA PER DR. PERRY. I CALLED HIM. ADD VANCOMYCIN UNTIL MORE CLEAR IDEA. STOP DIURETICS ALREADY HER CREATININE IS GETTING HIGHER AFTER A DOSE OF LASIX. WHEN CREATININE STABLIIZES WE WILL DO CT SCAN. I HAD ASKED HER TO DO CT SCAN OF CHEST BUT SHE DID NOT WANT TO. PNEUMONIA, PE OR TUMOR ARE POSSIBILITIES. CHANGE FROM LOVENOX TO XARELTO PLATELETS LOWERED. SHE ALREADY HAS COMPROMISED PLATELETS FROM CIRRHOSIS. Qualifiers: Chronicity: acute (4) Diabetes Onset Date: 02/20/17 Current Visit: No Status: Chronic Plan: CHR ,STABLE A1C. FU FS QID. Qualifiers: Diabetes mellitus type: type 2 Diabetes mellitus complication status: with kidney complications Chronic kidney disease stage: stage 2 (mild) (5) Liver cirrhosis secondary to nonalcoholic steatohepatitis (ARMAS) Current Visit: No Status: Chronic Plan: DR. SANCHEZ IS TREATING HER. THERE IS NOT MUCH HE CAN DO TO CURE EXCEPT FOR LIVER TRANSPLANT IF SHE IS STABLE AT A LATER DATE. (6) Elevated d-dimer Current Visit: Yes Status: Acute Plan: 20K VENOUS DOP NEG. CT CHEST DONE. CONTINUE IVFLUIDS. ABOVE CHANGED MEDS. (7) Acute on chronic renal failure Current Visit: Yes Status: Acute Plan: RESUME IV FLUIDS. RENAL CONSULT. FU DAILY LAB. CR HIGHER. PREPARING FOR HD. Qualifiers: Acute renal failure type: with acute tubular necrosis Chronic kidney disease stage: stage 3 (moderate) Qualified Code(s): N17.0 - Acute kidney failure with tubular necrosis; N18.3 - Chronic kidney disease, stage 3 (moderate) (8) Heparin induced thrombocytopenia Current Visit: Yes Status: Acute Plan: CHANGED MEDS. NOT CLEAR ABOUT PE YET WE CAN'T DO CT ANGIO OR VQ YET.
--- NOTE | 2020-04-05 19:15 | CON ---
Date of Consultation: 04/05/2020 Brief History Of Present Illness: The patient is a 59-year-old female who presents to the hospital on 04/04 with hemodynamic instability. She has a past medical history significant for diabe haleigh, hypertension, hyperlipidemia, hypothyroidism, and was in a regular state of health until she was admitted with respiratory complaints and suspected pneumonia. Developed sudden cardiac arrest. She was resuscitated, placed on the ventilator and weaned off the ventilation and all pressor support, w hich included dopamine at the time of her admission, at which point today, she is currently extubated and continues to have worsening renal function. Dr. Tiwari saw the patient and determined the pat ient had acute kidney injury, which is multifactorial, possible hepatorenal syndrome, poor perfusion with ATN secondary to cardiorenal, volume overload, and third spacing. Management was requested and he recommended placement of a temporary hemodialysis catheter. As such, I was consulted for the abov e-stated issue. Past Medical History: Significant for cirrhosis, diabetes, neuropathy, hypothyroidism, hypertension, hyperlipidemia. Home Medications: Include: Glimepiride, metformin, carvedilol, Lasix, , hydrochlorothiazi de, levothyroxine, spironolactone, trazodone. Allergies: LOPERAMIDE AND PENICILLIN. Social History: Denies smoking, alcohol, or recreational drug use. Review of Systems: Ten point review of system, currently has some shortness of breath. Past Surgical History: Includes a hysterectomy. Physical Examination: Vital Signs: At the time of my examination, her BMI is 40.4. Her vital signs were blood pressure 13 0/79, pulse rate 74, respiratory rate 25, temperature 97.8. She is currently on BiPAP during my exam . HEENT: She is normocephalic. Otherwise, her sclerae are anicteric. Mucous membranes are moist. Or opharynx is clear. Chest: Decreased breath sounds bilaterally. Heart: Rate was regular during my examination. Abdomen: Obese. Extremities: She has global anasarca including all 4 extremities. Laboratory Data: She had a laboratory exam, which reveals a white blood cell count of 7.4, hemoglobi n is 8.7, hematocrit of 25.2, platelet count was 66. Her D-dimer on 04/03 was 31068. Her sodium is 139, potassium 4.4, chloride 107, carbon dioxide 25, BUN 45, creatinine 2.5, glucose is 138, uric aci d was 11.8, calcium 7.7, TIBC 172, transferrin 123. CK was 1769. Her B12 was 999, PTH was 118. UA showed many white blood cells, calcium oxalate, bacteria. She had imaging performed as well, which i ncluded chest x-ray extremity venous study on 04/04, which was officially read as no evidence of DVT involving either lower extremity. Assessment And Plan: This is a 59-year-old female who comes in with multiple medical problems, statu s post a cardiac arrest, who has acute renal insufficiency/acute renal failure. 1.Continue medical management. 2.I have explained risks, benefits, and alternatives of placement of un-tunneled temporary femoral v enous hemodialysis catheter including but not limited to bleeding, infection, damage to surrounding t issue, need for further operation and procedures. The patient agrees to proceed as indicated. Thank you for this interesting consult. JUANITO/LAUREN Voice ID: [id number] Report ID: [id number]
--- NOTE | 2020-04-05 19:21 | PN ---
Date of Progress Note: 04/05/2020 Subjective: The patient was admitted with respiratory failure, over volume. The patient had pneumon ia with COVID pneumonia. The patient had been coded. The patient had acute kidney injury with anasa rca. The patient being oliguric, we tried fluid expansion with albumin. Kidney function continued t o decline. The patient oliguric. Physical Examination: Vital Signs: Blood pressure of 110/52, pulse of 69, afebrile. The patient's urine output of 150 ove r the last 12 hours, 300 on the 24 hours. Chest: Crackles bilateral. Heart: S1, S2. Systolic murmur. Abdomen: Soft, nontender. Extremities: +2 edema. Laboratory Data: Sodium 139, potassium 4.4, bicarb 25, BUN 45, creatinine 2.5, GFR of 19, uric acid 11.8, calcium 7.7, phosphorus 4.5. Iron saturation 48. CK 1769. Albumin 2.7. PTH 118. WBC 7.4, H and H 8.7/25.2. PC ratio 0.2. Current Medications: The patient on include, 1.Levaquin. 2.Albumin. 3.Xarelto. 4.Lasix. 5.Breathing treatment. 6.Pepcid. 7.Levothyroxine. 8.Octreotide. Assessment And Plan: 1.Acute kidney injury secondary to cardiorenal, superimposed with rhabdomyolysis/poor perfusion acut e tubular necrosis secondary to cardiac arrest/COVID pneumonia, oliguric, proteinuric nonnephrotic. Could not evaluate the kidney size as by the ultrasound not visible because of the body habitus to ru le out any compartment syndrome. The patient continued to be on the over volume side. I had long di scussion with the patient regarding the need to initiate renal replacement therapy, the patient on ag reement. We will start the patient on dialysis. We will consult Surgery for placement of access and we will proceed with the dialysis. The patient is going to be dialyzed on low blood flow and we anel l try to achieve negative balance 1 to 2 L. We will repeat the dialysis tomorrow and we will follow up. 2.Hypertension, currently hypotension. Keep holding blood pressure medication. 3.Respiratory failure secondary to COVID pneumonia/over volume. We will start dialysis. We will tr y to establish better volume control. 4.Hepatorenal syndrome. Continue midodrine for the time being. I am going to go ahead and disconti nue octreotide. 5.COVID pneumonia as above. 6.Congestive heart failure. We will try to establish better volume control with the dialysis. 7.Acute hematuria with renal failure, possible nephritis. We will send for full serology. 8.Anemia of chronic kidney disease. I am going to go ahead and start for Retacrit. Time spent, 45 minutes. JAIRON Voice ID: [id number] Report ID: [id number]
[2020-04-06] MEDS ORDERED: FENTANYL CITR 100 MCG/2 ML ONE
--- NOTE | 2020-04-06 01:58 | PN ---
Subjective: She was seen by Dr. Chavez. Ms. Taveras was admitted with anasarca and this was follow ed by a cardiac arrest. She basically is on a ventilator. Pulmonary is following her for acute resp iratory failure. She has a history of liver cirrhosis. CTA is pending because of a D-dimer of 20,17 9, and I think the patient is already being treated as if she had a pulmonary embolus. COVID testing is negative. Her creatinine is 1.93. She is presently oxygenating well. She is in sinus rhythm. She is on Lovenox, Levaquin, dopamine, antibiotic, steroid, as well as Synthroid. Echocardiogram is pending. I agree with her present regimen. We will continue to follow. RACHEAL/LAUREN Voice ID: [id number] Report ID: [id number]
--- NOTE | 2020-04-06 02:34 | OP ---
Date of Procedure: 04/05/2020 Surgeon: Pasha Mcqueen MD, Preoperative Diagnosis: Acute renal failure. Postoperative Diagnosis: Acute renal failure. Procedure Performed: Placement of a left femoral vein temporary hemodialysis catheter using ultrasou nd guidance and microintroducer set. Anesthesia: Local 1% lidocaine used. Estimated Blood Loss: Less than 5 cc. Specimen: None. Findings: Dark nonpulsatile blood return. Complications: None. Disposition: The patient remained in ICU in serious condition. Procedure In Detail: After informed consent was obtained, the patient was prepped and draped in the usual sterile fashion. After adequate anesthesia was achieved, an area of the left inguinal area was then anesthetized with 1% lidocaine plain. I then used an ultrasound probe and using ultrasound deysi dance and a microintroducer needle, I cannulated the femoral vein on the left side on the first attem pt without evidence of complication. Dark red nonpulsatile blood was returned. I advanced a micro w vivian at this point and removed the needle. I then made a small leroy incision overlying this insertion site and placed the microintroducer sheath using Seldinger technique over the micro wire. Micro wir e out was called at this point and the inner sheath was removed from the introducer micro sheath. Da rk red nonpulsatile blood was returned. A standard wire was then placed through this without evidenc e of complication. I then removed the introducer sheath and using sequential dilatation, dilated up the tract into the femoral vein. I then placed the catheter in the left femoral vein without evidenc e of complication. Dark red nonpulsatile blood was returned on both ports quite easily and they were both flushed with saline quite easily, and as such, I believe the catheter was in a good anatomic po sition. At this point, I secured the catheter using the attached 2-0 nylon suture and cleansed the s kin and placed an antibiotic disk at the insertion site and a sterile dressing placed over top. The patient tolerated the procedure well without evidence of complication, remained in the ICU in serious condition. All counts were correct including wire out called 2 times, both wires were verified on t he back table and all counts were correct at the end of the case. JUANITO/LAUREN Voice ID: [id number] Report ID: [id number]
[2020-04-06] MEDS: LEVOTHYROXINE SODIUM 100 MCG VIAL IV SCH (06:00)
[2020-04-06 06:17] LABS: Albumin 2.8 g/dL (3.4-5.0); Phosphorus 3.9 mg/dL (2.5-4.9); Potassium 4.1 mmol/L (3.5-5.1)
[2020-04-06] MEDS: INSULIN -REGULAR HUMAN 50 UNIT/0.5 ML ML SQ SCH ×4 (07:30→21:00)
[2020-04-06] MEDS ORDERED: IPRATROPIUM BROM 0.5MG/2.5ML ONE (07:57)
[2020-04-06] MEDS ORDERED: ALBUTEROL 2.5 MG/3 ML NEB SOL ONE (07:57)
[2020-04-06] MEDS: FAMOTIDINE 20 MG/2 ML VIAL IV SCH (08:12)
[2020-04-06] MEDS: ALBUMIN HUMAN 25% 100 ML IV SCH ×2 (08:12→21:00)
[2020-04-06] MEDS: RIVAROXABAN 10 MG TABLET PO SCH (08:13)
[2020-04-06] MEDS: MIDODRINE HCL 5 MG TABLET PO SCH ×3 (08:13→21:00)
[2020-04-06] MEDS ORDERED: ALBUMIN HUMAN 25% 50 ML IV ONE ×2 (08:20→16:35)
[2020-04-06] MEDS ORDERED: FAMOTIDINE 20 MG/2 ML VIAL IV ONE (08:21)
--- NOTE | 2020-04-06 08:37 | RAD REPORT ---
EXAM DESCRIPTION: Marsha Single View04/06/2020 8:02 am CLINICAL HISTORY: Shortness breath COMPARISON: April 05 FINDINGS: No significant change in a moderate left pleural effusion with basilar atelectasis Additional bilateral pulmonary opacities. The heart is mildly enlarged IMPRESSION: Moderate left pleural effusion Left basilar atelectasis Additional mild bilateral pulmonary opacities may represent pneumonia or mild pulmonary edema
--- NOTE | 2020-04-06 11:32 | P.PN ---
Subjective Date of Service: 04/06/20 Chief Complaint: Respiratory failure Subjective: Improving NICOLE IS EXTUBATED, LAYING IN BED, IS ABLE TO TALK. STILL COUGH AND SOME DYSPNEA. GENERALLY WEAK. Review of Systems 10-point ROS is otherwise unremarkable General: Weakness, Malaise Respiratory: Cough Physical Examination - Vital Signs Temperature: 99.2 F Blood Pressure: 110/56 Pulse: 68 Respirations: 15 Pulse Ox (%): 99 - Physical Exam General: Alert, Mild distress, Obese HEENT: Atraumatic, PERRLA, EOMI Neck: Supple, JVD not distended Respiratory: Diminished Cardiovascular: Regular rate/rhythm, Edema Gastrointestinal: Normal bowel sounds, No tenderness Musculoskeletal: No tenderness Integumentary: No rashes Neurological: Normal speech, Normal tone, Normal affect Lymphatics: No axilla or inguinal lymphadenopathy - Studies Microbiology Data (last 24 hrs): 04/03/20 00:05 Blood - Blood Aerobic Blood Culture - Final 04/03/20 00:05 Blood - Blood Blood Culture Gram Stain - Final 04/03/20 00:05 Blood - Blood Anaerobic Blood Culture - Final Medications List Reviewed: Yes Assessment And Plan - Current Problems (Diagnosis) (1) Primary hypothyroidism Current Visit: Yes Status: Chronic Plan: HER TSH HAS BEEN CLOSE TO NORMAL BEFORE BUT HIGH THIS TIME. AGREE WITH IV LEVOTHYROIXIINE FOR POSSIBLE MYXEDEMA COMA. (2) Esophageal varices Current Visit: Yes Status: Chronic Plan: SHE GOES TO DR. VILLANUEVA FOR BANDING. Qualifiers: Esophageal varices type: secondary Esophageal varices bleeding: without bleeding Qualified Code(s): I85.10 - Secondary esophageal varices without bleeding (3) Respiratory failure Current Visit: Yes Status: Acute Plan: IMPROVED CLINICALY. EXTUBATED. LOVENOX DCED PLATELTES DROPPED. SHE ALREADY HAS LOW PLATELETS FROM CIRRHOSIS FROM FATTY LIVER. XARELTO DOES NOT USUALLY AFFECT PLATELETS. THERE IS ONE CASE REPORTED OF DOING SO. I WILL ORDER VQ SCAN TODAY FOR CHECKING ON PE. Qualifiers: Chronicity: acute (4) Diabetes Onset Date: 02/20/17 Current Visit: No Status: Chronic Plan: CHR ,STABLE A1C. FU FS QID. Qualifiers: Diabetes mellitus type: type 2 Diabetes mellitus complication status: with kidney complications Chronic kidney disease stage: stage 2 (mild) (5) Liver cirrhosis secondary to nonalcoholic steatohepatitis (ARMAS) Current Visit: No Status: Chronic Plan: DR. SANCHEZ IS TREATING HER. THERE IS NOT MUCH HE CAN DO TO CURE EXCEPT FOR LIVER TRANSPLANT IF SHE IS STABLE AT A LATER DATE. (6) Elevated d-dimer Current Visit: Yes Status: Acute Plan: 20K VENOUS DOP NEG. CT CHEST DONE. CONTINUE IVFLUIDS. ABOVE CHANGED MEDS. (7) Acute on chronic renal failure Current Visit: Yes Status: Acute Plan: RESUME IV FLUIDS. RENAL CONSULT. FU DAILY LAB. CR HIGHER. PREPARING FOR HD. CREAT HAS IMPROVED. MAY NOT NEED HD. Qualifiers: Acute renal failure type: with acute tubular necrosis Chronic kidney disease stage: stage 3 (moderate) Qualified Code(s): N17.0 - Acute kidney failure with tubular necrosis; N18.3 - Chronic kidney disease, stage 3 (moderate) (8) Heparin induced thrombocytopenia Current Visit: Yes Status: Acute Plan: CHANGED MEDS. NOT CLEAR ABOUT PE YET WE CAN'T DO CT ANGIO OR VQ YET. WILL DO DAILY CBC AND STOP XARELTO ONLY IF IT IS LOWER THAN 30K OR SO. XARELTO IS NOT SUPPOSED TO LOWER PLATELETS.
--- NOTE | 2020-04-06 12:35 | RAD REPORT ---
EXAM DESCRIPTION: CT - Abdomen Pelvis Wo Contrast - 04/06/2020 12:26 pm CLINICAL HISTORY: Abdominal pain TECHNIQUE: Computed axial tomography of the abdomen and pelvis was obtained. IV and oral contrast we re not requested. All CT scans are performed using dose optimization technique as appropriate and may include automated exposure control or mA/KV adjustment according to patient size. FINDINGS: The evaluation of solid organs, vessels and bowel is limited secondary to the lack of con trast administration. Cirrhotic liver. Gallstones without gallbladder wall thickening The spleen, pancreas, adrenals kidneys grossly normal Comer catheter within the bladder. Large amount of ascites. Diffuse edema within subcutaneous tissues Moderate left pleural effusion with bibasilar opacities Marked old compression fracture L4 vertebral body. . There is no evidence of diverticulitis. IMPRESSION: Cirrhosis Large amount of ascites
[2020-04-06] MEDS: Levofloxacin 250mg IV 250 MG/50 ML BAG IV SCH (12:46)
[2020-04-06] MEDS: LEVOTHYROXINE SOD 0.075 MG TAB PO SCH (12:46)
[2020-04-06] MEDS: HALOPERIDOL LACT 5 MG/ML INJ IV PRN ×2 (14:24→23:02)
[2020-04-06] MEDS: ZIPRASIDONE MESYLA 20 MG/VIAL IM PRN (15:10)
[2020-04-06 16:01] LABS: Arterial Blood Carboxyhemoglob 1.9 % (0-1.5); Blood Gas Oxyhemoglobin 91.9 % (94-97); Blood O2 Saturation 94.5 % (92-98.5)
[2020-04-06] MEDS ORDERED: ALBUMIN HUMAN 25% 50 ML IV PRN (16:52)
--- NOTE | 2020-04-06 17:46 | PN ---
Date of Progress Note: 04/06/2020 Subjective: The patient was admitted with acute kidney injury secondary to hepatorenal. The patient was anasarca, over volume, oliguric. The patient was started on dialysis. Received session of dialysis yesterday. Tolerated. Managed to remove 1 L. The patient off BiPAP, on nasal cannula, but still have shortness of breath. Objective: Vital Signs: Blood pressure 110/56, pulse of 68, afebrile. Again, the patient had urine output of 370 with ultrafiltration of 1 L on dialysis. Chest: Crackles bilateral. Heart: S1, S2. Systolic murmur. Abdomen: Distended. Ascites. Extremities: +3 edema. Neurological: Alert, oriented x3. No focal. Laboratory Data: WBC 7.4, H and H 8.7/25.2, platelets of 66. Sodium 142, potassium 4.1, bicarb 27, BUN 42, creatinine 2.3, GFR of 21. This is after dialysis, calcium 7.8, phosphorus 3.9. Serum protein electrophoresis is still pending. Serology, rheumatoid factor was negative. The rest of the serology is still pending. Current Medications: Include: 1. Midodrine 5 mg t.i.d. 2. Levaquin. 3. Epogen. 4. Breathing treatment. 5. Pepcid. 6. Levothyroxine. Assessment And Plan: 1. Acute kidney injury, secondary to hepatorenal, oliguric, over volume. I am going to continue dialysis for today and tomorrow, and we will challenge the patient again. Today, we will goal for 2 L and we will follow up. 2. Hypertension, currently low blood pressure. Continue midodrine. 3. Hepatorenal as above. The patient is off dopamine. Continue midodrine. Keep holding fluid. Discontinue albumin. 4. Ascites. The patient is more stable currently. I am going to go ahead and get CT to give me better visualization of the kidney and to evaluate for ascites to see if the patient is candidate for any paracentesis. 5. Urinary tract infection, stable. 6. Pneumonia secondary to COVID, status post respiratory failure. Continue current treatment. time spent for face to face care , placing order and dicussing with staff, other water resource consultant and patient/ patient family 35 min JAIRON Voice ID: [id number] Report ID: [id number] MTDD
[2020-04-06] MEDS: EPOETIN 4,000 UNIT/ML VIAL IV SCH (23:00)
[2020-04-06] MEDS: LACTULOSE 20 GM/30 ML UCUP PO SCH (23:02)
[2020-04-06] MEDS ORDERED: HALOPERIDOL LACT 5 MG/ML INJ ONE (23:11)
[2020-04-06] MEDS ORDERED: LACTULOSE 20 GM/30 ML UCUP ONE (23:11)
[2020-04-06] MEDS: LORazepam 2 MG/ML VIAL IV PRN (23:37)
[2020-04-06] MEDS ORDERED: LORazepam 2 MG/ML VIAL ONE (23:46)
[2020-04-07] MEDS: ZIPRASIDONE MESYLA 20 MG/VIAL IM PRN (00:06)
[2020-04-07] MEDS: WATER FOR INJ,STERILE 10 ML IM PRN (00:06)
[2020-04-07] MEDS ORDERED: FENTANYL CITR 100 MCG/2 ML ONE (01:04)
[2020-04-07] MEDS: LORazepam 2 MG/ML VIAL IV PRN ×2 (03:09→07:38)
[2020-04-07] MEDS ORDERED: LORazepam 2 MG/ML VIAL ONE ×2 (03:19→07:48)
[2020-04-07] MEDS: LACTULOSE 20 GM/30 ML UCUP PO SCH ×5 (04:00→21:07)
[2020-04-07] MEDS ORDERED: LEVOTHYROXINE SODIUM 137 MCG PO SCH (06:00)
[2020-04-07] MEDS ORDERED: LEVOTHYROXINE SOD 0.075 MG TAB ONE (06:06)
[2020-04-07] MEDS: LEVOTHYROXINE SOD 0.075 MG TAB PO SCH (06:07)
[2020-04-07 06:50] LABS: Albumin 3.1 g/dL (3.4-5.0); Phosphorus 3.3 mg/dL (2.5-4.9)
[2020-04-07] MEDS: INSULIN -REGULAR HUMAN 50 UNIT/0.5 ML ML SQ SCH ×4 (07:30→20:55)
[2020-04-07] MEDS: ALBUMIN HUMAN 25% 100 ML IV SCH ×4 (09:00→21:06)
[2020-04-07] MEDS: RIVAROXABAN 10 MG TABLET PO SCH (09:00)
[2020-04-07] MEDS: MIDODRINE HCL 5 MG TABLET PO SCH ×3 (09:00→21:00)
[2020-04-07] MEDS ORDERED: carvediloL 12.5 MG TAB PO SCH (09:00)
[2020-04-07] MEDS: carvediloL 3.125 MG TAB PO SCH (09:00)
[2020-04-07] MEDS ORDERED: ARFORMOTEROL TARTRATE 15 MCG/2 ML VIAL.NEB ONE (09:43)
[2020-04-07] MEDS: THIAMINE 200 MG/2 ML INJ IVP SCH (09:44)
[2020-04-07] MEDS: FAMOTIDINE 20 MG/2 ML VIAL IV SCH (09:44)
[2020-04-07] MEDS ORDERED: ALBUMIN HUMAN 25% 100 ML IV ONE ×3 (09:47→21:15)
[2020-04-07] MEDS ORDERED: THIAMINE 200 MG/2 ML INJ ONE (09:48)
--- NOTE | 2020-04-07 09:48 | P.PN ---
Subjective Date of Service: 04/07/20 Chief Complaint: Respiratory failure Subjective: No new changes NICOLE IS EXTUBATED, LAYING IN BED, IS ABLE TO TALK. STILL COUGH AND SOME DYSPNEA. GENERALLY WEAK. SHE HAS BEEN CONFUSED FOR TWO DAYS. SHE IS NOT EATING. PULLING IV OUT. SHE IS ON SHORT TERM HD NOW. Review of Systems is unable to be obtained Physical Examination - Vital Signs Temperature: 98.3 F Blood Pressure: 115/65 Pulse: 73 Respirations: 15 Pulse Ox (%): 99 - Physical Exam General: Moderate distress (AGITATION.), Obese HEENT: Atraumatic, PERRLA, EOMI Neck: Supple, JVD not distended Respiratory: Clear to auscultation bilaterally, Normal air movement Cardiovascular: Regular rate/rhythm, Normal S1 S2 Gastrointestinal: Normal bowel sounds, No tenderness Musculoskeletal: No tenderness Integumentary: No rashes Neurological: Normal speech, Normal tone, Normal affect Lymphatics: No axilla or inguinal lymphadenopathy - Studies Microbiology Data (last 24 hrs): 04/03/20 00:05 Blood - Blood Aerobic Blood Culture - Final 04/03/20 00:05 Blood - Blood Blood Culture Gram Stain - Final 04/03/20 00:05 Blood - Blood Anaerobic Blood Culture - Final Medications List Reviewed: Yes Assessment And Plan - Current Problems (Diagnosis) (1) Primary hypothyroidism Current Visit: Yes Status: Chronic Plan: HER TSH HAS BEEN CLOSE TO NORMAL BEFORE BUT HIGH THIS TIME. AGREE WITH IV LEVOTHYROIXIINE FOR POSSIBLE MYXEDEMA COMA. (2) Esophageal varices Current Visit: Yes Status: Chronic Plan: SHE GOES TO DR. VILLANUEVA FOR BANDING. Qualifiers: Esophageal varices type: secondary Esophageal varices bleeding: without bleeding Qualified Code(s): I85.10 - Secondary esophageal varices without bleeding (3) Respiratory failure Current Visit: Yes Status: Acute Plan: IMPROVED CLINICALY. EXTUBATED. LOVENOX DCED PLATELTES DROPPED. SHE ALREADY HAS LOW PLATELETS FROM CIRRHOSIS FROM FATTY LIVER. XARELTO DOES NOT USUALLY AFFECT PLATELETS. THERE IS ONE CASE REPORTED OF DOING SO. I WILL ORDER VQ SCAN TODAY FOR CHECKING ON PE. Qualifiers: Chronicity: acute (4) Diabetes Onset Date: 02/20/17 Current Visit: No Status: Chronic Plan: CHR ,STABLE A1C. FU FS QID. Qualifiers: Diabetes mellitus type: type 2 Diabetes mellitus complication status: with kidney complications Chronic kidney disease stage: stage 2 (mild) (5) Liver cirrhosis secondary to nonalcoholic steatohepatitis (ARMAS) Current Visit: No Status: Chronic Plan: DR. SANCHEZ IS TREATING HER. THERE IS NOT MUCH HE CAN DO TO CURE EXCEPT FOR LIVER TRANSPLANT IF SHE IS STABLE AT A LATER DATE. (6) Elevated d-dimer Current Visit: Yes Status: Acute Plan: 20K VENOUS DOP NEG. CT CHEST DONE. CONTINUE IVFLUIDS. ABOVE CHANGED MEDS. (7) Acute on chronic renal failure Current Visit: Yes Status: Acute Plan: RESUME IV FLUIDS. RENAL CONSULT. FU DAILY LAB. CR HIGHER. PREPARING FOR HD. CREAT HAS IMPROVED. MAY NOT NEED HD. Qualifiers: Acute renal failure type: with acute tubular necrosis Chronic kidney disease stage: stage 3 (moderate) Qualified Code(s): N17.0 - Acute kidney failure with tubular necrosis; N18.3 - Chronic kidney disease, stage 3 (moderate) (8) Heparin induced thrombocytopenia Current Visit: Yes Status: Acute Plan: CHANGED MEDS. NOT CLEAR ABOUT PE YET WE CAN'T DO CT ANGIO OR VQ YET. WILL DO DAILY CBC AND STOP XARELTO ONLY IF IT IS LOWER THAN 30K OR SO. XARELTO IS NOT SUPPOSED TO LOWER PLATELETS. (9) Hepatic encephalopathy Current Visit: Yes Status: Acute Plan: ADDED LACTULOSE YESTERDAY. DOBHOFF AND LACTULOSE Q6H SHE IS NOT ABLE TO INGEST ANYTHING WITH CONFUSION. I TALKED TO IN DETAIL ABOUT ALL SYSTEMS THAT ARE FAILING.
[2020-04-07] MEDS ORDERED: FAMOTIDINE 20 MG/2 ML VIAL IV ONE (09:49)
[2020-04-07] MEDS ORDERED: carvediloL 6.25 MG TAB ONE (09:49)
[2020-04-07] MEDS ORDERED: LACTULOSE 20 GM/30 ML UCUP ONE ×3 (09:50→21:15)
--- NOTE | 2020-04-07 10:25 | P.PN ---
Subjective Date of Service: 04/07/20 Chief Complaint: Delirium Patient has been confused agitated requiring sedation and antipsychotics to control her Review of Systems is unable to be obtained Physical Examination - Vital Signs Temperature: 98.3 F Blood Pressure: 115/65 Pulse: 73 Respirations: 15 Pulse Ox (%): 99 - Physical Exam General: Unresponsive Respiratory: Clear to auscultation bilaterally, Diminished (Diminished on the left side) Cardiovascular: No edema, Regular rate/rhythm - Studies Microbiology Data (last 24 hrs): 04/03/20 00:05 Blood - Blood Aerobic Blood Culture - Final 04/03/20 00:05 Blood - Blood Blood Culture Gram Stain - Final 04/03/20 00:05 Blood - Blood Anaerobic Blood Culture - Final Medications List Reviewed: Yes Assessment & Plan - Problems (Diagnosis) (1) Delirium Current Visit: Yes Status: Acute Plan: Patient is confused agitated possibly encephalopathic ammonia level elevated will insert an NG tube give her some lactulose patient is requiring BiPAP oxygenation satisfactory vital signs stable patient is on dialysis may have hepatorenal syndrome mildly anemic (2) Pleural effusion Current Visit: Yes Status: Acute Plan: The plan for a thoracentesis on the left side probably if induced by her cirrhosis of the liver Kirk to exclude infection of ordered a CT pulmonary angiogram for anticoagulation for now (3) Hypothyroid Current Visit: Yes Status: Acute Plan: Patient is hypothyroid not eating and drinking address change clerk to IV Synthroid for now check serum cortisol level trial some Decadron possible underlying adrenal insufficiency patient is high risk Qualifiers: Hypothyroidism type: unspecified Qualified Code(s): E03.9 - Hypothyroidism, unspecified
[2020-04-07] MEDS: dexAMETHasone 4 MG/ML VIAL IV SCH ×2 (12:41→16:42)
[2020-04-07] MEDS ORDERED: dexAMETHasone 4 MG/ML VIAL ONE ×2 (12:49→16:48)
[2020-04-07] MEDS ORDERED: VITAL HP 1,000 ML BOT RTH SCH (14:00)
[2020-04-07] MEDS: Levofloxacin 250mg IV 250 MG/50 ML BAG IV SCH (14:06)
--- NOTE | 2020-04-07 14:13 | RAD REPORT ---
EXAM DESCRIPTION: US - Paracentesis Proc Guidance - 04/07/2020 2:05 pm CLINICAL HISTORY: Ascites, renal failure, pleural effusion COMPARISON: CT abdomen and pelvis April 06 TECHNIQUE: Image guided paracentesis procedure was requested. Patient is immobile and in the ICU. Ex am was performed at bedside. The procedure, risks and alternatives were discussed with the patient's . Consent was obtained over the phone. Patient was unable to consent herself for the procedure . Patient had no contraindicated allergy. PT/ INR and platelet values or within acceptable limits for this procedure. Preliminary sonographic evaluation identified left lower quadrant access site. The skin and deeper t issues were anesthetized with 1 percent lidocaine. Under direct sonographic visualization, a paracen tesis catheter was advanced into the peritoneal cavity. Large volume drainage was initiated. Approxi mately 9.5 liters of ascites removed. At the conclusion of the procedure, catheter was withdrawn and a bandage placed at the puncture site. Patient was to remain in the ICU for postprocedure care and ongoing medical care. Patient was admini stered albumin prior to the procedure according to referring physician protocol. IMPRESSION: Ultrasound-guided paracentesis was performed. Approximately 9.5 liters of ascites remove d.
[2020-04-07] MEDS: EPOETIN 4,000 UNIT/ML VIAL IV SCH (16:08)
--- NOTE | 2020-04-07 17:55 | P.PN ---
Subjective Date of Service: 04/07/20 Chief Complaint: Delirium Subjective: New changes subjective Pt with HX of Cirrhosis , admitted afetr cardiac arrest , was on pressers, pt had Dorothy with anuria, stARTED ON hD, after extubation , pt was confused and combative today still confused plan for paracentecis today still oliguric physical exam General: confused, combative, on biPAP neck: supple, no elevated JVD Chest: Crackles bilateral. Heart: S1, S2. Systolic murmur. Abdomen: Distended. Ascites. Extremities: +3 edema. Assessment And Plan: Acute kidney injury, possible ATN vs hepatoreanl oliguric will cont HD renal dose meds f/u serology W/U AMS possible hepatic encepahlopathy will check ammonia level head Ct when stable Ascitis plan for paracentecis today respiratory failure cont biPAP pulmonary on board prognosi guarded Physical Examination - Vital Signs Temperature: 98.0 F Blood Pressure: 133/60 Pulse: 74 Respirations: 22 Pulse Ox (%): 99 - Studies Medications List Reviewed: Yes
[2020-04-07] MEDS: Rifaximin 550 MG Tab PO SCH (21:06)
[2020-04-07] MEDS: HALOPERIDOL LACT 5 MG/ML INJ IV PRN (23:11)
[2020-04-07] MEDS ORDERED: HALOPERIDOL LACT 5 MG/ML INJ ONE (23:17)
[2020-04-08] MEDS: ZIPRASIDONE MESYLA 20 MG/VIAL IM PRN (00:15)
[2020-04-08] MEDS: dexAMETHasone 4 MG/ML VIAL IV SCH (00:16)
[2020-04-08] MEDS ORDERED: ZIPRASIDONE MESYLA 20 MG/VIAL IM ONE (00:22)
[2020-04-08] MEDS: LORazepam 2 MG/ML VIAL IV PRN ×2 (02:20→06:24)
[2020-04-08] MEDS ORDERED: LACTULOSE 20 GM/30 ML UCUP ONE ×3 (03:31→17:08)
[2020-04-08] MEDS: LACTULOSE 20 GM/30 ML UCUP PO SCH ×4 (03:34→23:03)
[2020-04-08] MEDS: LEVOTHYROXINE SODIUM 100 MCG VIAL IV SCH (06:24)
[2020-04-08] MEDS ORDERED: LEVOTHYROXINE SODIUM 100 MCG VIAL IV ONE (06:25)
[2020-04-08] MEDS ORDERED: LORazepam 2 MG/ML VIAL ONE (06:31)
[2020-04-08 06:44] LABS: Albumin 3.2 g/dL (3.4-5.0); Phosphorus 2.7 mg/dL (2.5-4.9); Potassium 3.8 mmol/L (3.5-5.1)
[2020-04-08 06:45] LABS: Absolute Lymphocytes (CBC) 0.3 K/uL (0.7-4.9); Basophils % 0.2 % (0-1.3); MPV 8.7 fL (7.6-11.3); RBC Red Blood Cell Count 2.17 M/uL (3.86-4.86)
[2020-04-08] MEDS: INSULIN -REGULAR HUMAN 50 UNIT/0.5 ML ML SQ SCH ×4 (07:30→21:00)
[2020-04-08] MEDS: carvediloL 3.125 MG TAB PO SCH (09:00)
[2020-04-08] MEDS: ALBUMIN HUMAN 25% 100 ML IV SCH ×2 (09:24→21:01)
[2020-04-08] MEDS: Rifaximin 550 MG Tab PO SCH ×2 (09:27→20:59)
[2020-04-08] MEDS: FAMOTIDINE 20 MG/2 ML VIAL IV SCH (09:27)
[2020-04-08] MEDS ORDERED: ALBUMIN HUMAN 25% 100 ML IV ONE ×2 (09:32→21:03)
[2020-04-08] MEDS ORDERED: FAMOTIDINE 20 MG/2 ML VIAL IV ONE (09:32)
[2020-04-08 09:58] LABS: Blood Morphology Comment NOTED (NOT SEEN); Macrocytosis 1+; Platelet Estimate DECR; White Blood Cell Scan OK
[2020-04-08] MEDS: MIDODRINE HCL 5 MG TABLET PO SCH ×3 (10:32→21:00)
[2020-04-08] MEDS: THIAMINE 200 MG/2 ML INJ IVP SCH (10:42)
[2020-04-08] MEDS ORDERED: THIAMINE 200 MG/2 ML INJ ONE (10:51)
--- NOTE | 2020-04-08 11:19 | P.PN ---
Subjective Date of Service: 04/08/20 Chief Complaint: Delirium No new changes minimally responsive patient gets worse at night become more agitated Review of Systems is unable to be obtained Physical Examination - Vital Signs Temperature: 98.5 F Blood Pressure: 125/62 Pulse: 86 Respirations: 18 Pulse Ox (%): 99 - Physical Exam General: Delirious, Unresponsive Neck: Supple, Other Cardiovascular: No edema, Normal S1 S2 - Studies Medications List Reviewed: Yes Assessment & Plan - Problems (Diagnosis) (1) Delirium Current Visit: Yes Status: Acute Plan: Patient admitted with delirium as currently on lactulose through an NG tube requiring minimal sedation usually at night this is now thrombocytopenic no evidence of sepsis Dc levofloxacin can cost toxic psychosis Dc steroids patient has a macrocytosis I have also ordered a head CT she is high risk for bleeding I do not think the patient would be able to do a V/Q scan is also status post paracentesis on dialysis oxygenation satisfactory can change to high-flow if tolerated (2) Pleural effusion Current Visit: Yes Status: Acute Plan: The plan for a thoracentesis on the left side probably if induced by her cirrho sis of the liver Kirk to exclude infection of ordered a CT pulmonary angiogram for anticoagulation for now (3) Hypothyroid Current Visit: Yes Status: Acute Plan: Patient is hypothyroid not eating and drinking supervisor policy change clerks to IV Synthroid for now check serum cortisol level trial some Decadron possible underlying adrenal insufficiency patient is high risk Qualifiers: Hypothyroidism type: unspecified Qualified Code(s): E03.9 - Hypothyroidism, unspecified
--- NOTE | 2020-04-08 11:21 | P.PN ---
Subjective Date of Service: 04/08/20 Chief Complaint: Delirium Subjective: No new changes NICOLE IS EXTUBATED, LAYING IN BED, IS ABLE TO TALK. STILL COUGH AND SOME DYSPNEA. GENERALLY WEAK. SHE HAS BEEN CONFUSED FOR TWO DAYS. SHE IS NOT EATING. PULLING IV OUT. SHE IS ON SHORT TERM HD NOW. SHE GETS AGITATED AND PULLS ALL IVS ETC AT NIGHT TIME. SHE HAD TO BE GIVEN ATIVAN SHE DID NOT RESPOND TO GEODON OR HALDOL. SHE IS SEDATED THIS AM. Review of Systems is unable to be obtained Physical Examination - Vital Signs Temperature: 98.5 F Blood Pressure: 125/62 Pulse: 86 Respirations: 18 Pulse Ox (%): 99 - Physical Exam General: Mild distress, Confused, Obese HEENT: Atraumatic, PERRLA, EOMI Neck: Supple, JVD not distended Respiratory: Clear to auscultation bilaterally, Normal air movement Cardiovascular: Regular rate/rhythm, Normal S1 S2 Gastrointestinal: Normal bowel sounds, No tenderness Musculoskeletal: No tenderness Integumentary: No rashes Neurological: Normal speech, Normal tone, Normal affect Lymphatics: No axilla or inguinal lymphadenopathy - Studies Medications List Reviewed: Yes Assessment And Plan - Current Problems (Diagnosis) (1) Primary hypothyroidism Current Visit: Yes Status: Chronic Plan: HER TSH HAS BEEN CLOSE TO NORMAL BEFORE BUT HIGH THIS TIME. AGREE WITH IV LEVOTHYROIXIINE FOR POSSIBLE MYXEDEMA COMA. (2) Esophageal varices Current Visit: Yes Status: Chronic Plan: SHE GOES TO DR. VILLANUEVA FOR BANDING. Qualifiers: Qualified Code(s): I85.10 - Secondary esophageal varices without bleeding (3) Respiratory failure Current Visit: Yes Status: Acute Plan: IMPROVED CLINICALY. EXTUBATED. LOVENOX DCED PLATELTES DROPPED. SHE ALREADY HAS LOW PLATELETS FROM CIRRHOSIS FROM FATTY LIVER. XARELTO DOES NOT USUALLY AFFECT PLATELETS. THERE IS ONE CASE REPORTED OF DOING SO. I WILL ORDER VQ SCAN TODAY FOR CHECKING ON PE. (4) Diabetes Onset Date: 02/20/17 Current Visit: No Status: Chronic Plan: CHR ,STABLE A1C. FU FS QID. (5) Liver cirrhosis secondary to nonalcoholic steatohepatitis (ARMAS) Current Visit: No Status: Chronic Plan: DR. SANCHEZ IS TREATING HER. THERE IS NOT MUCH HE CAN DO TO CURE EXCEPT FOR LIVER TRANSPLANT IF SHE IS STABLE AT A LATER DATE. (6) Elevated d-dimer Current Visit: Yes Status: Acute Plan: 20K VENOUS DOP NEG. CT CHEST DONE. CONTINUE IVFLUIDS. ABOVE CHANGED MEDS. (7) Acute on chronic renal failure Current Visit: Yes Status: Acute Plan: RESUME IV FLUIDS. RENAL CONSULT. FU DAILY LAB. CR HIGHER. PREPARING FOR HD. CREAT HAS IMPROVED. MAY NOT NEED HD. Qualifiers: Qualified Code(s): N17.0 - Acute kidney failure with tubular necrosis; N18.3 - Chronic kidney disease, stage 3 (moderate) (8) Heparin induced thrombocytopenia Current Visit: Yes Status: Acute Plan: CHANGED MEDS. NOT CLEAR ABOUT PE YET WE CAN'T DO CT ANGIO OR VQ YET. WILL DO DAILY CBC AND STOP XARELTO ONLY IF IT IS LOWER THAN 30K OR SO. XARELTO IS NOT SUPPOSED TO LOWER PLATELETS. I CALLED DR. LOZANO TO HAVE HEPARIN CANCELED FROM HD REGIMEN. THIS MAY HELP. SO FAR WE CAN START XARELTO BACK BUT HG IS LOW AND WE NEED PLATELETS TO GO HIGHER BEFORE WE CAN RESUME. (9) Hepatic encephalopathy Current Visit: Yes Status: Acute Plan: ADDED LACTULOSE YESTERDAY. DOBHOFF AND LACTULOSE Q6H SHE IS NOT ABLE TO INGEST ANYTHING WITH CONFUSION. I TALKED TO IN DETAIL ABOUT ALL SYSTEMS THAT ARE FAILING. DESPITE GETTING LACTULOSE AND XIFAXAN SHE IS NOT IMPROVING. I HAVE TALKED TO AGAIN TODAY. HE IS AWARE. SHE MAY END UP IN [facility]. SHE MAY OR MAY NOT SURVIVE SHE HAS LONG STANDING CIRRHOSIS FROM FATTY LIVER. ASCITES WAS TAPPED YESTERDAY BY RADIOLOGIST 9.5 LT.
[2020-04-08 12:38] LABS: Thyroid Stimulating Hormone 7.87 uIU/mL (0.360-3.740)
[2020-04-08 15:20] LABS: Hepatitis C Virus RNA (PCR)log <1.18 log IU/mL
[2020-04-08] MEDS: HALOPERIDOL LACT 5 MG/ML INJ IV PRN (20:55)
[2020-04-08] MEDS ORDERED: HALOPERIDOL LACT 5 MG/ML INJ ONE (21:01)
--- NOTE | 2020-04-08 23:51 | PN ---
Date of Progress Note: 04/08/2020 Chief Complaint: Severe acute kidney injury. Subjective: The patient has hepatorenal syndrome, history of cirrhosis. She is admitted after cardi ac arrest. She has severe acute kidney injury with oliguria, anuria. She was started on dialysis. She remains combative and confused. Review of Systems: Unobtainable. Physical Examination: Lungs: Bilateral crackles. Heart: S1, S2. Abdomen: Soft, benign. Extremities: Edema present. Impression And Plan: 1.Acute kidney injury, possible acute tubular necrosis versus hepatorenal syndrome with oliguria. C ontinue dialysis. Serology workup is pending. 2.Altered mental status. The patient is encephalopathic. The patient has liver failure and ammonia will be checked. 3.Ascites. The patient had paracentesis. Continue albumin for blood pressure support and midodrine . EB/MODL Voice ID: [id number] Report ID: [id number]
[2020-04-09] MEDS: WATER FOR INJ,STERILE 10 ML IM PRN ×2 (00:06→20:12)
[2020-04-09] MEDS: ZIPRASIDONE MESYLA 20 MG/VIAL IM PRN ×2 (00:07→20:12)
[2020-04-09] MEDS ORDERED: ZIPRASIDONE MESYLA 20 MG/VIAL IM ONE ×2 (00:13→20:18)
[2020-04-09] MEDS ORDERED: WATER FOR INJ,STERILE 10 ML ONE ×2 (00:14→20:19)
[2020-04-09] MEDS: LACTULOSE 20 GM/30 ML UCUP PO SCH ×4 (04:50→21:16)
[2020-04-09 04:56] LABS: RBC Red Blood Cell Count 2.19 M/uL (3.86-4.86)
[2020-04-09 04:57] LABS: Absolute Lymphocytes (CBC) 0.4 K/uL (0.7-4.9)
[2020-04-09 05:01] LABS: Basophils % 0.4 % (0-1.3); Hematocrit 23.2 % (36.0-45.0); Lymphocytes % 5.4 % (15.3-44.8); MPV 8.3 fL (7.6-11.3)
[2020-04-09 05:08] LABS: Albumin 3.3 g/dL (3.4-5.0); Phosphorus 2.2 mg/dL (2.5-4.9); Potassium 3.7 mmol/L (3.5-5.1)
[2020-04-09] MEDS: HALOPERIDOL LACT 5 MG/ML INJ IV PRN (06:01)
[2020-04-09] MEDS: LEVOTHYROXINE SODIUM 100 MCG VIAL IV SCH (06:02)
[2020-04-09] MEDS ORDERED: HALOPERIDOL LACT 5 MG/ML INJ ONE ×2 (06:11→22:31)
[2020-04-09] MEDS: INSULIN -REGULAR HUMAN 50 UNIT/0.5 ML ML SQ SCH ×4 (07:30→21:00)
[2020-04-09] MEDS: carvediloL 3.125 MG TAB PO SCH ×2 (09:00)
[2020-04-09 09:58] LABS: MPV 7.6 fL (7.6-11.3)
[2020-04-09] MEDS: MIDODRINE HCL 5 MG TABLET PO SCH ×3 (09:58→20:54)
[2020-04-09] MEDS: Rifaximin 550 MG Tab PO SCH ×2 (09:58→20:54)
[2020-04-09] MEDS: FAMOTIDINE 20 MG/2 ML VIAL IV SCH (09:58)
[2020-04-09] MEDS: THIAMINE 200 MG/2 ML INJ IVP SCH (10:00)
[2020-04-09] MEDS: ALBUMIN HUMAN 25% 100 ML IV SCH ×2 (10:00→20:52)
[2020-04-09] MEDS ORDERED: THIAMINE HCL 100 MG TABLET ONE (10:07)
[2020-04-09] MEDS ORDERED: FAMOTIDINE 20 MG/2 ML VIAL IV ONE (10:07)
[2020-04-09] MEDS ORDERED: carvediloL 6.25 MG TAB ONE (10:07)
[2020-04-09] MEDS ORDERED: ALBUMIN HUMAN 25% 100 ML IV ONE (10:07)
[2020-04-09] MEDS ORDERED: THIAMINE 200 MG/2 ML INJ ONE (10:11)
[2020-04-09] MEDS ORDERED: LACTULOSE 20 GM/30 ML UCUP ONE ×3 (10:19→20:20)
[2020-04-09 10:27] LABS: Platelet Estimate DECR
--- NOTE | 2020-04-09 17:20 | P.PN ---
Subjective Date of Service: 04/09/20 Chief Complaint: Delirium N patient continues to be confused agitated is is on BiPAP minimally responsive Review of Systems is unable to be obtained Physical Examination - Vital Signs Temperature: 98.0 F Blood Pressure: 141/54 Pulse: 75 Respirations: 22 Pulse Ox (%): 93 - Physical Exam General: Unresponsive Respiratory: Clear to auscultation bilaterally Cardiovascular: No edema, Regular rate/rhythm, Normal S1 S2 Gastrointestinal: Normal bowel sounds, Soft and benign - Studies Medications List Reviewed: Yes Assessment & Plan - Problems (Diagnosis) (1) Delirium Current Visit: Yes Status: Acute Plan: I am not sure why the patient continues to be confused agitated still requiring BiPAP will try a nasal cannula high-flow oxygen consider LTAC patient's oxygenation and vital sign remained stable thrombocytopenic count is stable high risk for thoracentesis patient is on dialysis (2) Pleural effusion Current Visit: Yes Status: Acute Plan: Patient has a left-sided pleural effusion she had a recent paracenteses suspect is a pleural effusion is from 0 cirrhosis of the liver (3) Hypothyroid Current Visit: Yes Status: Acute Plan: Patient is hypothyroid continue with IV Synthroid steroids were discontinued Qualifiers: Hypothyroidism type: unspecified Qualified Code(s): E03.9 - Hypothyroidism, unspecified
--- NOTE | 2020-04-09 18:50 | P.PN ---
Subjective Date of Service: 04/09/20 Chief Complaint: Delirium Subjective: Improving NICOLE IS EXTUBATED, LAYING IN BED, IS ABLE TO TALK. STILL COUGH AND SOME DYSPNEA. GENERALLY WEAK. SHE HAS BEEN CONFUSED FOR TWO DAYS. SHE IS NOT EATING. PULLING IV OUT. SHE IS ON SHORT TERM HD NOW. SHE GETS AGITATED AND PULLS ALL IVS ETC AT NIGHT TIME. SHE HAD TO BE GIVEN ATIVAN SHE DID NOT RESPOND TO GEODON OR HALDOL. SHE IS SEDATED THIS AM. THIS AM SHE WAS RESTLESS, NOT RESPONDING BUT MOVING ALL FOUR LIMBS . I CALLED THIS PM AND RN MICHELLE TOLD ME THAT SHE IS STARTING TO RESPOND BETTER, SAYING A FEW WORDS BUT STILL RESTLESS. Review of Systems is unable to be obtained General: Weakness Physical Examination - Vital Signs Temperature: 98.0 F Blood Pressure: 141/54 Pulse: 75 Respirations: 22 Pulse Ox (%): 93 - Physical Exam General: Mild distress, Confused, Obese HEENT: Atraumatic, PERRLA, EOMI Neck: Supple, JVD not distended Respiratory: Clear to auscultation bilaterally, Normal air movement Cardiovascular: Regular rate/rhythm, Normal S1 S2 Gastrointestinal: Normal bowel sounds, No tenderness Musculoskeletal: No tenderness Integumentary: No rashes Neurological: Other ( IN HPI) Lymphatics: No axilla or inguinal lymphadenopathy - Studies Medications List Reviewed: Yes Assessment And Plan - Current Problems (Diagnosis) (1) Primary hypothyroidism Current Visit: Yes Status: Chronic Plan: HER TSH HAS BEEN CLOSE TO NORMAL BEFORE BUT HIGH THIS TIME. AGREE WITH IV LEVOTHYROIXIINE FOR POSSIBLE MYXEDEMA COMA. (2) Esophageal varices Current Visit: Yes Status: Chronic Plan: SHE GOES TO DR. VILLANUEVA FOR BANDING. Qualifiers: Esophageal varices type: secondary Esophageal varices bleeding: without bleeding Qualified Code(s): I85.10 - Secondary esophageal varices without bleeding (3) Respiratory failure Current Visit: Yes Status: Acute Plan: IMPROVED CLINICALY. EXTUBATED. LOVENOX DCED PLATELTES DROPPED. SHE ALREADY HAS LOW PLATELETS FROM CIRRHOSIS FROM FATTY LIVER. XARELTO DOES NOT USUALLY AFFECT PLATELETS. THERE IS ONE CASE REPORTED OF DOING SO. I WILL ORDER VQ SCAN TODAY FOR CHECKING ON PE. Qualifiers: Chronicity: acute (4) Diabetes Onset Date: 02/20/17 Current Visit: No Status: Chronic Plan: CHR ,STABLE A1C. FU FS QID. Qualifiers: Diabetes mellitus type: type 2 Diabetes mellitus complication status: with kidney complications Chronic kidney disease stage: stage 2 (mild) (5) Liver cirrhosis secondary to nonalcoholic steatohepatitis (ARMAS) Current Visit: No Status: Chronic Plan: DR. SANCHEZ IS TREATING HER. THERE IS NOT MUCH HE CAN DO TO CURE EXCEPT FOR LIVER TRANSPLANT IF SHE IS STABLE AT A LATER DATE. (6) Elevated d-dimer Current Visit: Yes Status: Acute Plan: 20K VENOUS DOP NEG. CT CHEST DONE. CONTINUE IVFLUIDS. ABOVE CHANGED MEDS. (7) Acute on chronic renal failure Current Visit: Yes Status: Acute Plan: RESUME IV FLUIDS. RENAL CONSULT. FU DAILY LAB. CR HIGHER. PREPARING FOR HD. CREAT HAS IMPROVED. MAY NOT NEED HD. Qualifiers: Acute renal failure type: with acute tubular necrosis Chronic kidney disease stage: stage 3 (moderate) Qualified Code(s): N17.0 - Acute kidney failure with tubular necrosis; N18.3 - Chronic kidney disease, stage 3 (moderate) (8) Heparin induced thrombocytopenia Current Visit: Yes Status: Acute Plan: CHANGED MEDS. NOT CLEAR ABOUT PE YET WE CAN'T DO CT ANGIO OR VQ YET. WILL DO DAILY CBC AND STOP XARELTO ONLY IF IT IS LOWER THAN 30K OR SO. XARELTO IS NOT SUPPOSED TO LOWER PLATELETS. I CALLED DR. LOZANO TO HAVE HEPARIN CANCELED FROM HD REGIMEN. THIS MAY HELP. SO FAR WE CAN START XARELTO BACK BUT HG IS LOW AND WE NEED PLATELETS TO GO HIGHER BEFORE WE CAN RESUME. PLATELTES CAME UP TO 52K. DAILY CHECK. (9) Hepatic encephalopathy Current Visit: Yes Status: Acute Plan: ADDED LACTULOSE YESTERDAY. NGT AND LACTULOSE Q6H SHE IS NOT ABLE TO INGEST ANYTHING WITH CONFUSION. IMPROVED SOME I TALKED TO NURSES TO AVOID ALL SEDATIONS IF WE CAN. SHE SHOULD IMPROVE HOPEFULLY. WE HAVE ARRANGED FOR TO COME IN TO VISIT HER.
--- NOTE | 2020-04-09 22:52 | PN ---
Date of Progress Note: 04/09/2020 Chief Complaint: Hepatorenal syndrome, history of liver cirrhosis. Subjective: The patient is admitted after cardiac arrest. She has severe acute kidney injury with o liguria, anuria, and dialysis was started. Review of Systems: Unobtainable. Physical Examination: Lungs: Bilateral crackles. Heart: S1, S2. Abdomen: Soft, benign. Extremities: Edema present. Impression And Plan: 1.Acute kidney injury, possible acute tubular necrosis versus hepatorenal syndrome with oliguria. M onitor urine output and fluid balance. The patient will continue dialysis. Monitor electrolytes. A djust dialysis parameters. 2.Altered mental status. The patient is encephalopathic. The patient has liver failure and ammonia level will be checked. 3.Ascites. The patient underwent paracentesis. Monitor blood pressure and continue midodrine. EB/MODL Voice ID: [id number] Report ID: [id number]
[2020-04-10] MEDS: HALOPERIDOL LACT 5 MG/ML INJ IV PRN (01:35)
[2020-04-10 04:50] LABS: HBsAG Nonreactive (Nonreactive)
[2020-04-10] MEDS: LACTULOSE 20 GM/30 ML UCUP PO SCH ×4 (05:06→22:00)
[2020-04-10] MEDS: LEVOTHYROXINE SODIUM 100 MCG VIAL IV SCH (05:07)
[2020-04-10] MEDS ORDERED: LACTULOSE 20 GM/30 ML UCUP ONE ×2 (05:16→10:31)
[2020-04-10 05:26] LABS: Potassium 3.7 mmol/L (3.5-5.1)
[2020-04-10] MEDS: WATER FOR INJ,STERILE 10 ML IM PRN (06:25)
[2020-04-10] MEDS: ZIPRASIDONE MESYLA 20 MG/VIAL IM PRN (06:26)
[2020-04-10] MEDS ORDERED: WATER FOR INJ,STERILE 10 ML ONE (06:33)
[2020-04-10] MEDS ORDERED: ZIPRASIDONE MESYLA 20 MG/VIAL IM ONE (06:33)
[2020-04-10] MEDS: INSULIN -REGULAR HUMAN 50 UNIT/0.5 ML ML SQ SCH ×4 (07:30→21:00)
[2020-04-10] MEDS: ALBUMIN HUMAN 25% 100 ML IV SCH ×2 (09:00→21:00)
[2020-04-10] MEDS: carvediloL 3.125 MG TAB PO SCH (09:00)
[2020-04-10] MEDS: MIDODRINE HCL 5 MG TABLET PO SCH ×3 (10:28→21:00)
[2020-04-10] MEDS: Rifaximin 550 MG Tab PO SCH ×2 (10:30→21:00)
[2020-04-10] MEDS: THIAMINE 200 MG/2 ML INJ IVP SCH (10:46)
[2020-04-10] MEDS ORDERED: THIAMINE 200 MG/2 ML INJ ONE (10:56)
--- NOTE | 2020-04-10 12:38 | P.PN ---
Subjective Date of Service: 04/10/20 Chief Complaint: Delirium No change patient continues to remain delirious minimally responsive Review of Systems is unable to be obtained Physical Examination - Vital Signs Temperature: 98 F Blood Pressure: 136/94 Pulse: 76 Respirations: 18 Pulse Ox (%): 100 - Physical Exam General: Unresponsive, Other (Agitated) Neck: Supple Respiratory: Clear to auscultation bilaterally Cardiovascular: No edema, Regular rate/rhythm - Studies Medications List Reviewed: Yes Assessment & Plan - Problems (Diagnosis) (1) Delirium Current Visit: Yes Status: Acute Plan: Patient continues to remain delirious mildly hypernatremic no current evidence of sepsis saturation satisfactory current lawn high-flow nasal cannula recommend transfer to an LTAC head CT ordered tube feeds patient has cirrhosis on lactulose start tube feeds (2) Pleural effusion Current Visit: Yes Status: Acute Plan: Patient has a left-sided pleural effusion she had a recent paracenteses suspect is a pleural effusion is from 0 cirrhosis of the liver (3) Hypothyroid Current Visit: Yes Status: Acute Plan: Patient is hypothyroid continue with IV Synthroid steroids were discontinued Qualifiers: Hypothyroidism type: unspecified Qualified Code(s): E03.9 - Hypothyroidism, unspecified
--- NOTE | 2020-04-10 13:00 | RAD REPORT ---
EXAM DESCRIPTION: Marsha Single View04/10/2020 12:32 pm CLINICAL HISTORY: Shortness of breath COMPARISON: April 06 FINDINGS: Nasogastric tube has been placed into the stomach There has been worsening in bilateral pulmonary opacities probably pulmonary edema. Bilateral pleural effusions left greater than right The heart is enlarged
--- NOTE | 2020-04-10 18:36 | P.PN ---
Subjective Date of Service: 04/10/20 Chief Complaint: ENCEPHALOPATHY Subjective: Worsening NICOLE IS EXTUBATED, LAYING IN BED, IS ABLE TO TALK. STILL COUGH AND SOME DYSPNEA. GENERALLY WEAK. SHE HAS BEEN CONFUSED FOR TWO DAYS. SHE IS NOT EATING. PULLING IV OUT. SHE IS ON SHORT TERM HD NOW. SHE GETS AGITATED AND PULLS ALL IVS ETC AT NIGHT TIME. SHE HAD TO BE GIVEN ATIVAN SHE DID NOT RESPOND TO GEODON OR HALDOL. SHE IS SEDATED THIS AM. THIS AM SHE WAS RESTLESS, NOT RESPONDING BUT MOVING ALL FOUR LIMBS . I CALLED THIS PM AND RN MICHELLE TOLD ME THAT SHE IS STARTING TO RESPOND BETTER, SAYING A FEW WORDS BUT STILL RESTLESS. MS MATHEW IS UNRESPONSIVE. SHE DOES NOT FOLLOW COMMANDS. SHE WAS THRASHING THIS AM BUT LATER BECAME IMMOBILE PER NURSE. Physical Examination - Vital Signs Temperature: 98.2 F Blood Pressure: 128/67 Pulse: 67 Respirations: 26 Pulse Ox (%): 100 - Physical Exam General: Unresponsive, Comatose Neurological: Other (NOT RESPONSIVE TO PAINFUL STIMULUS. PUPILS ARE SLOW TO REACT.) - Studies Medications List Reviewed: Yes Assessment And Plan - Current Problems (Diagnosis) (1) Primary hypothyroidism Current Visit: Yes Status: Chronic Plan: HER TSH HAS BEEN CLOSE TO NORMAL BEFORE BUT HIGH THIS TIME. AGREE WITH IV LEVOTHYROIXIINE FOR POSSIBLE MYXEDEMA COMA. (2) Esophageal varices Current Visit: Yes Status: Chronic Plan: SHE GOES TO DR. VILLANUEVA FOR BANDING. Qualifiers: Esophageal varices type: secondary Esophageal varices bleeding: without bleeding Qualified Code(s): I85.10 - Secondary esophageal varices without bleeding (3) Respiratory failure Current Visit: Yes Status: Acute Plan: IMPROVED CLINICALY. EXTUBATED. LOVENOX DCED PLATELTES DROPPED. SHE ALREADY HAS LOW PLATELETS FROM CIRRHOSIS FROM FATTY LIVER. XARELTO DOES NOT USUALLY AFFECT PLATELETS. THERE IS ONE CASE REPORTED OF DOING SO. I WILL ORDER VQ SCAN TODAY FOR CHECKING ON PE. Qualifiers: Chronicity: acute (4) Diabetes Onset Date: 02/20/17 Current Visit: No Status: Chronic Plan: CHR ,STABLE A1C. FU FS QID. Qualifiers: Diabetes mellitus type: type 2 Diabetes mellitus complication status: with kidney complications Chronic kidney disease stage: stage 2 (mild) (5) Liver cirrhosis secondary to nonalcoholic steatohepatitis (ARMAS) Current Visit: No Status: Chronic Plan: DR. SANCHEZ IS TREATING HER. THERE IS NOT MUCH HE CAN DO TO CURE EXCEPT FOR LIVER TRANSPLANT IF SHE IS STABLE AT A LATER DATE. (6) Elevated d-dimer Current Visit: Yes Status: Acute Plan: 20K VENOUS DOP NEG. CT CHEST DONE. CONTINUE IVFLUIDS. ABOVE CHANGED MEDS. (7) Acute on chronic renal failure Current Visit: Yes Status: Acute Plan: RESUME IV FLUIDS. RENAL CONSULT. FU DAILY LAB. CR HIGHER. PREPARING FOR HD. CREAT HAS IMPROVED. MAY NOT NEED HD. Qualifiers: Acute renal failure type: with acute tubular necrosis Chronic kidney disease stage: stage 3 (moderate) Qualified Code(s): N17.0 - Acute kidney failure with tubular necrosis; N18.3 - Chronic kidney disease, stage 3 (moderate) (8) Heparin induced thrombocytopenia Current Visit: Yes Status: Acute Plan: CHANGED MEDS. NOT CLEAR ABOUT PE YET WE CAN'T DO CT ANGIO OR VQ YET. WILL DO DAILY CBC AND STOP XARELTO ONLY IF IT IS LOWER THAN 30K OR SO. XARELTO IS NOT SUPPOSED TO LOWER PLATELETS. I CALLED DR. LOZANO TO HAVE HEPARIN CANCELED FROM HD REGIMEN. THIS MAY HELP. SO FAR WE CAN START XARELTO BACK BUT HG IS LOW AND WE NEED PLATELETS TO GO HIGHER BEFORE WE CAN RESUME. PLATELTES CAME UP TO 52K. DAILY CHECK. (9) Hepatic encephalopathy Current Visit: Yes Status: Acute Plan: ADDED LACTULOSE YESTERDAY. NGT AND LACTULOSE Q6H SHE IS NOT ABLE TO INGEST ANYTHING WITH CONFUSION. IMPROVED SOME I TALKED TO NURSES TO AVOID ALL SEDATIONS IF WE CAN. SHE SHOULD IMPROVE HOPEFULLY. WE HAVE ARRANGED FOR TO COME IN TO VISIT HER. METABOLIC ENCEPHALOPATHY IS NOT IMPROVING. I TALKED TO VIA MARILY AND TWO BROTHER TO EXPLAIN THAT FOR LAST 5 DAYS I HAVE NOT SEEN HER IMPROVE DESPITE ALL EFFORTS FROM MULTIPLE DOCTORS. THEY UNDERSTAND AND WANT TO MAKE HER DNR. THEY WANT HOSPICE CARE BUT IT WILL TAKE AT LEAST 24 HOURS FOR [facility] TO APPROVE IT. [facility] HAS BEEN INFORMED AND SHE IS CALLING T[facility].
[2020-04-10] MEDS: LORazepam 2 MG/ML VIAL IV PRN (19:29)
[2020-04-10] MEDS ORDERED: LORazepam 2 MG/ML VIAL ONE (19:39)
[2020-04-10] MEDS ORDERED: HALOPERIDOL LACT 5 MG/ML INJ ONE (20:38)
[2020-04-11] MEDS: LORazepam 2 MG/ML VIAL IV PRN ×3 (01:24→10:11)
[2020-04-11] MEDS: LACTULOSE 20 GM/30 ML UCUP PO SCH ×3 (04:00→15:56)
[2020-04-11] MEDS: LEVOTHYROXINE SODIUM 100 MCG VIAL IV SCH (06:00)
[2020-04-11 06:21] LABS: Absolute Lymphocytes (CBC) 0.3 K/uL (0.7-4.9); Basophils % 0.3 % (0-1.3); Hematocrit 23.1 % (36.0-45.0); Lymphocytes % 6.3 % (15.3-44.8); MPV 7.7 fL (7.6-11.3); RBC Red Blood Cell Count 2.16 M/uL (3.86-4.86)
[2020-04-11] MEDS: INSULIN -REGULAR HUMAN 50 UNIT/0.5 ML ML SQ SCH ×3 (07:30→16:23)
[2020-04-11] MEDS: ALBUMIN HUMAN 25% 100 ML IV SCH (09:00)
[2020-04-11] MEDS: carvediloL 3.125 MG TAB PO SCH (09:00)
[2020-04-11] MEDS: MIDODRINE HCL 5 MG TABLET PO SCH ×2 (09:00→12:05)
[2020-04-11] MEDS: Rifaximin 550 MG Tab PO SCH (09:00)
[2020-04-11 09:28] VITALS: O2SAT 96
[2020-04-11] MEDS: THIAMINE 200 MG/2 ML INJ IVP SCH (10:06)
[2020-04-11] MEDS ORDERED: ZIPRASIDONE MESYLA 20 MG/VIAL IM PRN (10:24)
[2020-04-11] MEDS ORDERED: LORazepam 2 MG/ML VIAL IV PRN (10:24)
--- NOTE | 2020-04-11 10:35 | PN ---
Date of Progress Note: 04/10/2020 Chief Complaint: Hepatorenal syndrome, liver cirrhosis, related to hepatorenal syndrome. Subjective: This patient is admitted after cardiac arrest. She has severe acute kidney injury with oliguria, dialysis was started, . Review of Systems: Unobtainable. Physical Examination: Lungs: Diminished breath sounds. Heart: S1, S2. Abdomen: Soft, benign. Extremities: . Impression And Plan: 1.Acute kidney injury, possible acute tubular necrosis versus hepatorenal syndrome and accelerated _ oliguria. Monitor fluid balance and continue dialysis. Monitor electrolytes. Adjust dial ysis parameters. 2.Altered mental status, encephalopathy. Management per primary team. 3.Ascites. The patient is undergoing paracentesis. Continue midodrine and . EB/MODL Voice ID: [id number] Report ID: [id number]
[2020-04-11] MEDS ORDERED: DEXTROSE 10%-WATER 500 ML IV SCH (11:00)
--- NOTE | 2020-04-11 13:00 | P.DS ---
Admission Date: 04/03/20 Discharge Date: 04/11/20 Disposition: HOSPICE-MEDICAL FACILITY Discharge Condition: SERIOUS Reason for Admission: ENCEPHALOPATHY - Problems (1) Primary hypothyroidism Current Visit: Yes Status: Chronic (2) Esophageal varices Current Visit: Yes Status: Chronic Qualifiers: Esophageal varices type: secondary Esophageal varices bleeding: without bleeding Qualified Code(s): I85.10 - Secondary esophageal varices without bleeding (3) Respiratory failure Current Visit: Yes Status: Acute Qualifiers: Chronicity: acute (4) Diabetes Onset Date: 02/20/17 Current Visit: No Status: Chronic Qualifiers: Diabetes mellitus type: type 2 Diabetes mellitus complication status: with kidney complications Chronic kidney disease stage: stage 2 (mild) (5) Liver cirrhosis secondary to nonalcoholic steatohepatitis (ARMAS) Current Visit: No Status: Chronic (6) Elevated d-dimer Current Visit: Yes Status: Acute (7) Acute on chronic renal failure Current Visit: Yes Status: Acute Qualifiers: Acute renal failure type: with acute tubular necrosis Chronic kidney disease stage: stage 3 (moderate) Qualified Code(s): N17.0 - Acute kidney failure with tubular necrosis; N18.3 - Chronic kidney disease, stage 3 (moderate) (8) Heparin induced thrombocytopenia Current Visit: Yes Status: Acute (9) Hepatic encephalopathy Current Visit: Yes Status: Acute Brief History of Present Illness: NICOLE IS 59 YEARS OLD LADY WHO HAS CIRRHOSIS WITH THROMBOCYTOPENIA FROM STEATOHEPATITIS COMES TO OFFICE ABOUT TWO WEEKS AGO FOR DYSPNEA AND WAS FOUND TO HAVE PNEUMONIA ON CXR, TREATED WITH LEVAQUIN IMPROVED ON NEXT VISIT. PLAN WAS TO DO REPEAT CXR BUT ALL OF A SUDDEN SHE HAD SEVERE DYSPNEA LAST NIGHT. SHE COMES TO ER, WAS STABLIZED ON DIURETIC, SHE WAS SENT TO FLOOR AND SHE HAD SUDDEN CARDIAC ARREST. SHE WAS REVIVED. SHE HAD PULSELESS RHYTHM. SHE IS NOW IN ICU INTUBATED AND UNCONSCIOUS. I TALKED TO TODAY TO GET HISTORY. Hospital Course: NICOLE HAS END STAGE CIRRHOSIS WITH ASCITES AND ECNEPHALOPATHY. WE TRIED FOR MULTIPLE DAYS TO IMPROVE HER RESPIRATORY STATUS, RENAL STATUS WITH HD. LATER SHE DEVELOPED HEPATIC ENCEPHALOPATHY AND HAS FAILED TO IMPROVE WITH HELP OF LACTULOSE AND XIFAXAN. SHE IS UNCONSCIOUS FOR ABOUT 4 DAYS NOW. SHE IS AGITATED EVEN THOUGH SHE IS NOT ABLE TO WAKE UP. SHE PULLS HER IVS, NGT, RECTAL TUBE AND NEEDS TO BE CONTROLLED WITH IV MEDICINES. THIS IS WHY WE NEED HOSPICE. I TALKED TO AND TWO BROTHERS AND EXPLAINED THAT HER LIVER FAILURE HAS CAUSED BRAIN DAMAGE CALLED ENCEPHALOPATHY AND SHE IS NOT RECOVERING. THEY WANT HER DNR AND ON HOSPICE. I CONTACTED [facility] AND STARTED APPROVAL PROCESS YESTERDAY. Vital Signs/Physical Exam: Temp Pulse Resp BP Pulse Ox 96.4 F L 69 16 170/72 H 90 L 04/11/20 11:55 04/11/20 11:55 04/11/20 11:55 04/11/20 11:55 04/11/20 11:55 Laboratory Data at Discharge: WBC 5.5 K/uL (4.3-10.9) D 04/11/20 05:50 Hgb 7.8 g/dL (12.0-15.0) L* 04/11/20 05:50 Hct 23.1 % (36.0-45.0) L 04/11/20 05:50 Plt Count 47 K/uL (152-406) L* 04/11/20 05:50 PT 19.6 SECONDS (9.5-12.5) H 04/02/20 00:52 INR 1.68 04/02/20 00:52 APTT 35.2 SECONDS (24.3-36.9) 04/02/20 00:52 Sodium 148 mmol/L (136-145) H 04/10/20 04:28 Potassium 3.7 mmol/L (3.5-5.1) 04/10/20 04:28 BUN 48 mg/dL (7-18) H 04/10/20 04:28 Creatinine 2.04 mg/dL (0.55-1.3) H 04/10/20 04:28 Glucose 161 mg/dL (74-106) H 04/10/20 04:28 Uric Acid 11.8 mg/dL (2.6-6.0) H 04/05/20 06:30 Phosphorus 2.2 mg/dL (2.5-4.9) L 04/09/20 04:38 Magnesium 2.3 mg/dL (1.8-2.4) 04/02/20 23:40 Total Bilirubin Cancelled 04/05/20 05:57 AST Cancelled 04/05/20 05:57 ALT Cancelled 04/05/20 05:57 Alkaline Phosphatase Cancelled 04/05/20 05:57 Troponin I < 0.02 ng/mL (0.0-0.045) 04/03/20 18:15 Home Medications: Glimepiride [Amaryl] 4 mg PO DAILY 07/10/15 Metformin HCl [Metformin HCl ER] 1,000 mg PO BID 07/10/15 carvediloL [Coreg] 12.5 mg PO DAILY 07/21/18 Furosemide 20 mg PO DAILY 04/03/20 Irbesartan/Hydrochlorothiazide [Avalide 150-12.5 mg Tablet] 1 each PO DAILY 04/03/20 Levothyroxine Sodium [Synthroid] 137 mcg PO [id number] 04/03/20 Spironolactone 50 mg PO DAILY 04/03/20 Trazodone [Desyrel] 100 mg PO BEDTIME PRN 04/03/20
--- NOTE | 2020-04-11 14:51 | PN ---
Date of Progress Note: 04/11/2020 Subjective: The patient was admitted with acute kidney injury secondary to hepatorenal. The patient was started on dialysis. The patient apparently continued to decline. Her mental status has been deteriorated. Family decided for hospice care. Physical Examination: Vital Signs: Blood pressure 141/63, pulse of 78, afebrile. Chest: Crackles in bilateral base with clear on the upper zone. Heart: S1, S2. Systolic murmur. Abdomen: Ascites. Extremities: +2 edema. Neuro: The patient is poorly responsive. Laboratory Data: WBC 5.5, H and H 7.8/23.1, platelets 47. Sodium 148, potassium 3.7, bicarb 27, BUN 48, creatinine 2, calcium 8.5. Current Medications: The patient on include; 1. Haloperidol. 2. Midodrine. 3. Albumin. 4. Epogen. 5. Carvedilol. 6. Breathing treatment. Assessment And Plan: 1. Acute kidney injury secondary to hepatorenal. As the patient is going to be on hospice care, we will discuss with family if they want dialysis with the hospice. Otherwise, we will hold dialysis. 2. Over volume. Continue to diurese to establish better volume control to help with breathing. 3. Hypertension, controlled, not optimal. We will utilize the blood pressure for more diuresis. 4. Hepatic encephalopathy. Continue lactulose. Start the patient on D10 and follow up with the primary. Overall, the patient has poor prognosis. time spent for face to face care , placing order and dicussing with staff, other technical solutions consultant and patient/ patient family 35 min JAIRON Voice ID: [id number] Report ID: [id number] PEDRO
[2020-04-11 16:02] VITALS: BP 140/72
[2020-04-11 16:16] LABS: Vitamin D 1,25-Dihydroxy Total <8 pg/mL (18-72); Vitamin D,1,25-OH2, D2 <8 pg/mL
[2020-04-11 16:39] VITALS: TEMP 96.8
[2020-04-11] MEDS ORDERED: FUROSEMIDE 40 MG/4 ML VIAL IV SCH (17:00)
[2020-04-11] MEDS ORDERED: PROPRANOLOL HCL 10 MG TAB PO SCH (21:00)
[2020-04-12 21:32] LABS: Albumin, (SPE) 2.9 g/dL (3.8-4.8); Alpha-1-Globulins 0.3 g/dL (0.2-0.3); Alpha-2-Globulins 0.4 g/dL (0.5-0.9); Gamma Globulins 1.4 g/dL (0.8-1.7); INTERPRETATION REPORT
== END 2020-04-11 19:52 | disposition hospice, inpatient (51) | DRG 208 ==
LOC: ER 23:37 → UNDOADMIN 04-03 01:47 → ERHOLD 04-03 01:47 → 4TH 04-03 02:56 → ERHOLD 04-03 07:33 → 4TH 04-03 07:33 → ERHOLD 04-04 17:29 → 2ND 04-10 22:33 → ERHOLD 04-10 22:33
PROVIDERS: ADMIT Internal Medicine; ATTEND Internal Medicine
PROC: 5A1935Z Respiratory Ventilation, Less than 24 Consecutive Hours (ICD-10-PCS; principal; 2020-04-03)
PROC: 0BH17EZ Insertion of Endotracheal Airway into Trachea, Via Natural or Artificial Opening (ICD-10-PCS; 2020-04-03)
PROC: 5A1D70Z Performance of Urinary Filtration, Intermittent, Less than 6 Hours Per Day (ICD-10-PCS; 2020-04-05)
PROC: 0W9G3ZZ Drainage of Peritoneal Cavity, Percutaneous Approach (ICD-10-PCS; 2020-04-07)
DX: J96.00 Acute respiratory failure, unspecified whether with hypoxia or hypercapnia (principal); N17.0 Acute kidney failure with tubular necrosis; G93.41 Metabolic encephalopathy; K76.7 Hepatorenal syndrome; Z68.41 Body mass index [BMI] 40.0-44.9, adult; I85.10 Secondary esophageal varices without bleeding; R18.8 Other ascites; M62.82 Rhabdomyolysis; N39.0 Urinary tract infection, site not specified; J90 Pleural effusion, not elsewhere classified; K74.60 Unspecified cirrhosis of liver; K75.81 Nonalcoholic steatohepatitis (NASH); E66.9 Obesity, unspecified; D75.82 Heparin induced thrombocytopenia (HIT); T45.515A Adverse effect of anticoagulants, initial encounter; D53.9 Nutritional anemia, unspecified; I12.9 Hypertensive chronic kidney disease with stage 1 through stage 4 chronic kidney disease, or unspecified chronic kidney disease; N18.3 Chronic kidney disease, stage 3 (moderate); E11.22 Type 2 diabetes mellitus with diabetic chronic kidney disease; D63.1 Anemia in chronic kidney disease; E03.9 Hypothyroidism, unspecified; K72.90 Hepatic failure, unspecified without coma; B94.8 Sequelae of other specified infectious and parasitic diseases; R31.9 Hematuria, unspecified; Z66 Do not resuscitate; Z88.0 Allergy status to penicillin; Z88.8 Allergy status to other drugs, medicaments and biological substances; Z79.890 Hormone replacement therapy; Z79.84 Long term (current) use of oral hypoglycemic drugs; Z79.899 Other long term (current) drug therapy; Z90.710 Acquired absence of both cervix and uterus; Z20.828 Contact with and (suspected) exposure to other viral communicable diseases
CPT/HCPCS: 31500; 36415; 49083; 51702; 71045; 71250; 74176; 76700; 80048; 80053; 80069; 80076; 81003; 81015; 82140; 82533; 82550; 82553; 82570; 82607; 82652; 82728; 82746; 82805; 82947; 83520; 83540; 83735; 83880; 83970; 84145; 84156; 84165; 84439; 84443; 84466; 84484; 84550; 85025; 85044; 85049; 85379; 85610; 85730; 86021; 86038; 86140; 86160; 86225; 86317; 86430; 86704; 86706; 87040; 87070; 87086; 87088; 87205; 87340; 87522; 88108; 90935; 93005; 93306; 93970; 94002; 94640; 94660; 94760; 96365; 96375; 97110; 97112; 97161; 97530; 99291; 99292; J0171; J1170; J1265; J1630; J1644; J1650; J1940; J2310; J2354; J2704; J2920; J3010; J3370; J3411; J3486; J7040; J7605; P9047; Q5105; U0003

== ENCOUNTER 2020-04-11 19:54 | Inpatient (IN) | payer OTHER ==
--- OUTSIDE RECORDS SUMMARY | 2020-04-11 19:58 | XMS REPORT | Continuity of Care Document ---
:1960 Author Organization [facility] t Address [address] [place] [address] Care Team Providers Name Role Phone Zoey HAND Primary Care Physician Anand Gloria MD Attending Clinician Sami PEACOCK Attending Clinician Unavailable Jacoby AVILEZ Attending Clinician Unavailable Payers Payer Name Policy Type Policy Number Effective Date Expiration Date S igor AETNAAETNA PPO xxxxxxxxxx 2014 [facility] OPEN 00:00:00 Religion CHOICExxxxxxxxxx 2014-Present PPO Problems Condition Condition Condition Status Onset Resolution Last Treating Co mments Source Name Details Category Date Date Treatment Clinician Date Weight Weight Disease Active [facility] gain gain 6-18 [facility]: st 00 Other Other Disease Active [facility] ascites ascites 618 [facility] 00:00: st 00 Obesity Obesity Disease Active [facility] 6-18 [facility] 00[facility]00: st 00 Encephalop Encephalop Disease Active [place] athy athy 6-18 [facility]: st 00 Abnormal Abnormal Disease Active [place] LFTs LFTs 6-18 [facility] 00:[facility]: st 00 Insomnia Insomnia Disease Active 2019-0 [place] 4-16 [facility]: st 00 HTN HTN Disease Active [facility] (hypertens (hypertens 4-16 Me thodi ion) ion) 00:00: st 00 High High Disease Active 2016-08 [facility] cholestero cholestero 0-05 Me th[facility] l l [...] Date Stop Date Source Natural father Diabetes [facility]aternal [facility] Social History Social Habit Start Date Stop Date Quantity Comments Source Sex Assigned At [facility] M [facility] Alcohol intake 2020-03-09 2020[facility]03-09 [facility] non-drinker of alcohol (finding) Smoking Status Start Date Stop Date Source Never smoker [facility] Medications Ordered Filled Start Stop Current Ordering Indication Dosage Frequency Signature Comments Components Source Medication Medication Date Date Medication? Clinician (SIG) Name Name furosemide 2020- Yes 20mg QD Take 1 [place] (Lasix) 20 6-18 06-18 tablet (20 Me th[facility] mg tablet 00:00: 23:59 mg total) st 00 :00 by mouth daily. soft lens Yes Dry eyes 2[drp] [id number] Apply 2 [place] adjunctive 4-16 [id number] drops to [facility] solutions 00:00: 3D eye [...] [place] hydrochloro 8-17 11-26 tablet by Sd eliseo thiazide 00:00: 00:[address] (PRINZIDE,Z 00 :00 daily. ESTORETIC) 20-12.5 mg per tablet Immunizations Ordered Immunization Filled Immunization Date Status Commen ts Source Name Name FLUCELVAX QUAD PF 2016-05-17 Completed [facility] 00:00:00 Religion Vital Signs Vital Name Observation Time Observation Value Comments Source Body height 2020-03-09 09:15:00 167.6 cm [facility] Religion Systolic blood 2019-07-06 13:10:00 199 mm[Hg] Rubina dupont Religion pressure Diastolic blood 2019-07-06 13:10:00 83 mm[Hg] Tee Russo pressure Heart rate 2019-07-06 13:10:00 59 /min [facility] Religion Body weight 2019-07-06 13:10:00 111.245 kg [facility] Religion BMI 2019-07-06 13:10:00 39.58 kg/m2 [place] [facility] Oxygen saturation in 2019-07-06 13:10:00 97 /min [facility] Religion Arterial blood by Pulse oximetry Procedures Procedure Date / Time Performing Clinician Source Performed CBC WITH PLATELET AND 2020-03-16 08:54:00 Sangeetha Gloria DIFFERENTIAL COMPREHENSIVE METABOLIC 2020-03-16 08:54:00 Faizan, Sangeetha W. [facility] Religion PANEL PROTHROMBIN TIME WITH INR 2020-03-16 08:54:00 Faizan, Sangeetha Romeroist B NATRIURETIC PEPTIDE 2020-03-06 07:53:00 Faizan, Sangeetha Oliveira on Religion CBC WITH PLATELET AND 2020-03-06 07:53:00 Sangeetha Gloria on Religion DIFFERENTIAL COMPREHENSIVE METABOLIC 2020-03-06 07:53:00 Faizan, Sangeetha ha Religion PANEL GGT 2020-03-06 07:53:00 Faizan, Sangeetha [facility] Met hodist HEMOGLOBIN A1C 2020-03-06 07:53:00 Faizan, Sangeetha Fonseca Met hodist PROTHROMBIN TIME WITH INR 2020-03-06 07:53:00 Faizan, Sangeetha Romeroist CBC WITH PLATELET AND 2020-01-31 08:08:00 Faizan, Sangeetha Oliveira on Religion DIFFERENTIAL COMPREHENSIVE METABOLIC 2020-01-31 08:08:00 Faizan, Sangeetha ha Religion PANEL GGT 2020-01-31 08:08:00 Faizan, Sangeetha Fonseca Met hodist PROTHROMBIN TIME WITH INR 2020-01-31 08:08:00 Sangeetha Gloria Religion IMMUNOGLOBULIN G, A, M 2020-01-31 08:08:00 Sangeetha Gloria Religion COMPREHENSIVE METABOLIC 2019-09-23 09:14:00 Sangeetha Gloria Religion PANEL PROTHROMBIN TIME WITH INR 2019-09-23 09:14:00 Sangeetha Gloriaist CBC WITH PLATELET AND 2019-09-23 09:14:00 Sangeetha Gloria on Religion DIFFERENTIAL IMMUNOGLOBULIN G, A, M 2019-09-23 09:14:00 Sangeetha Gloria Religion ALPHA FETOPROTEIN 2019-09-23 09:14:00 Sangeetha Gloria M ethodist ALPHA FETOPROTEIN 2019-07-01 00:00:00 Sangeetha Gloria M ethodist CBC WITH PLATELET AND 2019-07-01 00:00:00 Sangeetha Gloria on Religion DIFFERENTIAL COMPREHENSIVE METABOLIC 2019-07-01 00:00:00 Sangeetha Gloria Religion PANEL PROTHROMBIN TIME WITH INR 2019-07-01 00:00:00 Sangeetha Gloria Religion PLATELET ESTIMATION (NOT 2019-07-01 00:00:00 Sangeetha Gloriaton Religion ORDERABLE) Plan of Care Planned Activity Planned Date Details Comments Source Future Scheduled 2020-05-11 INFLUENZA VACCINE [place] [facility] Test 00:00:00 [code = INFLUENZA VACCINE] Future Scheduled 2008 BREAST CANCER [facility] Me thodist Test 00:00:00 SCREENING [code = BREAST CANCER SCREENING] Future Scheduled 2008 COLONOSCOPY SCREENING [place] [facility] Test 00:00:00 [code = COLONOSCOPY SCREENING] Future Scheduled 2008 SHINGLES VACCINES [place] [facility] Test 00:00:00 (#1) [code = SHINGLES VACCINES (#1)] Future Scheduled 1979 Screening for [facility] thodist Test 00:00:00 malignant neoplasm of cervix (procedure) [code = 452369634] Future Scheduled 1968 DIABETIC FOOT EXAM [place] [facility] Test 00:00:00 [code = DIABETIC FOOT EXAM] Future Scheduled 1958 DIABETIC RETINAL EYE [facility] Test 00:00:00 EXAM [code = DIABETIC RETINAL EYE EXAM] Encounters Start End Encounter Admission Attending Care Care Encounter Source Date/Time Date/Time Type Type Clinicians Facility Department ID 2020-03-20 2020-03-20 Outpatient FAIZAN, [facility] [id number] [facility] 00:00:00 00:00:00 SANGEETHA [address] 2020-03-07 2020-03-07 Outpatient FAIZAN, [facility] [id number] [place] 00:00:00 00:00:00 SANGEETHA [address] 2020-03-03 2020-03-03 Outpatient FAIZAN, [facility] [id number] [place] 00:00:00 00:00:00 SANGEETHA [address] 2020-02-03 2020-02-03 Outpatient FAIZAN, [facility] [id number] [place] 00:00:00 00:00:00 SANGEETHA [address] 2020-01-27 2020-01-27 Outpatient FAIZAN, [facility] [id number] [place] 00:00:00 00:00:00 SANGEETHA [address] 2019-11-25 2019-11-25 Outpatient FAIZAN, [facility] [id number] [facility] 00:00:00 00:00:00 SANGEETHA [address] [...] peopleident ified as -Shayna n. EGFR Non-Afr. [place]ian 47 > OR = 60 L (test code = 2775) mL/min/1.73m2 EGFR 55 > OR = 60 L (test code = 41858-5) mL/min/1.73m2 BUN/creatinine ratio 19 6- 22 (calc) (test code = 3097-3) Sodium (test code = 138 mmol/L 051-744 5360-2) Potassium (test code = 3.9 mmol/L 3.5-5.3 2823-3) Chloride (test code = 102 mmol/L 98-110 2075-0) CO2 (test code = 30 mmol/L 20-32 8-9) Calcium (test code = 8.4 mg/dL 8.6-10.4 L 96342-6) Protein (test code = 6.4 g/dL 6.1-8.1 2885-2) Albumin, S (test code = 2.8 g/dL 3.6-5.1 L 1751-7) Globulin, total (test 3.6 1.9- 3.7 g/dL code = 18653-6) (calc) Albumin/globulin ratio 0.8 1.0- 2.5 L [...] Performing Organization Information: Site ID: GARRICKA [facility] Address: [address] [place] [address] Director: Juan Gil Lab Interpretation Abnormal (test code = 88912-3) [facility] with platelet and [id number] 00:59:00 Test Item Value Reference Range Interpretation [...] Performing Organization Information: Site ID: RGA Name: [facility] Address: [address] [place] [phone] Director: Juan Gil Lab Interpretation Abnormal (test code = 67739-7) [facility] with [id number] 00:59:00 Test Item Value Reference Range Interpretation Comments INR (test code = 1.5 H Reference R nisreen 6301-6) 0.9-1.1Moderate -i ntensity Warfar in Therapy 2.0-3.0Higher-i nt ensity Warfarin Therapy 3.0-4 .0 Prothrombin time 15.1 9.0- 11.5 sec H For more (test code = 5902-2) informa tion on this test, go to:[email or web address] TY (test code = FASTING:YESFASTING TY) : YES RAC (test code = Performing RAC) Organization Information: Site ID: RGA [facility]: [facility] Address: [address] [place] [phone] Director: Juan Gil Lab Interpretation Abnormal (test code = 12085-9) [facility] [id number] 12:35:00 Test Item Value Reference Range Interpretation Comments GGT (test code = 18 U/L 3-65 2324-2) TY (test code = FASTING:YESPATIENT REFUSED TY) SOME TESTING; PATIENT ENCOURAGED TO RETURN.FASTING: YES RAC (test code = Performing Organization RAC) Information: Site ID: RGA [facility]: [facility] Address: [address] [place] [phone] Director: Juan Gil Nunda MethodistHemoglobin [id number] 12:35:00 Test Item Value Reference Interpretation Comments [...] that their diabetes is well controlled . D1szlitvuj shou ld be individualized based on duration [...] RAC) Organization Information: Site ID: A [facility]: [facility] Address: [address] [place] [address] Director: Juan Gil Lab Interpretation Abnormal (test code = 86819-7) [facility] ReligionB natriuretic [id number] 12:35:00 Test Item Value Reference Range Interpretation Comments BNP (test 29 pg/mL <100 BNP levels inc rease code = with age in the 78616-6) generalpopulati on with the highest darien ues seen inindividuals g reater than 75 years o f age.Reference: J. Am. Taylor. Cardiol. 2002; 40:976-982. TY (test FASTING:YESPATIENT code = TY) REFUSED SOME TESTING; PATIENT ENCOURAGED TO RETURN.FASTING: YES RAC (test Performing code = RAC) Organization Information: Site ID: GREER Name: [facility] Address: [address] [place] [address] Director: Juan Gil Nunda MethodistImmunoglobulin G, A, [id number] 15:20:00 Test Item Value Reference Range Interpretation Comments IgA (test code = 2458-8) 818 mg/dL 70-320 H IgG (test code = 2465-3) 1920 mg/dL 600-1540 H IgM (test code = 2472-9) 60 mg/dL 50-300 TY (test code = TY) FASTING:YESFASTING: YES RAC (test code = RAC) Performing Organization Information: Site ID: GREER Name: [facility] Address: [address] [place] [phone] Director: Juan Gil Lab Interpretation (test Abnormal code = 59863-6) Nunda HeatheristAlpha [id number] 16:00:00 Test Item Value Reference Interpretation Comments Range Alpha fetoprotein 6.5 ng/mL H Reference Range: <6.1The (test code = use of AFP as a tumor 02514-8) marker in pregn antfemales is not recommen [...] Performing RAC) Organization Information: Site ID: [facility]: [facility] Address: [address] [place] [phone] Director: Dr. Juan Gil Lab Abnormal Interpretation (test code = 37608-4) Raymundo Russo
--- OUTSIDE RECORDS SUMMARY | 2020-04-11 19:58 | XMS REPORT | Clinical Summary ---
:1960 Author Organization [facility] Address [address] [place] [address] Care Team Providers Name Role Phone MD [...] c ancer 11/25/2019 Telephone Hepatology Jaquelin Dozier, CRUCIBLE FURNACE TENDER 09/23/2019 Orders Only Gastroenterology Brent Gloria MD 07/06/2019 Office Visit Hepatology Brent Gloria, Cirrhosis of liver without ascites, unspecified hepatic cirrhosis type (HCC) (Primary Dx); Esophageal vari edy without bleeding, unspecified esophageal varices type (HCC); Abnormal LFTs after 04/11/2019 Immunizations Name Administration Dates Next Due FLUCELVAX [...] Comments Blood Pressure 199/83 07/06/2019 1:10 PM WEBSPHERE ARCHITECT Pulse 59 07/06/2019 1:10 PM [employer]SPH[employer] ARCHITECT Temperature - - Respiratory Rate - - Oxygen Saturation 97% 07/06/2019 1:10 PM [employer]SPH[employer] ARCHITECT Inhaled Oxygen Concentration - - Weight 111 kg (245 lb 4 oz) 07/06/2019 1:10 PM [employer]SPH[employer] ARCHITECT Height 167.6 cm (5' 6") 03/09/2020 9:15 AM CDT Body Mass Index 39.58 07/06/2019 1:10 PM [employer]SPH[employer] ARCHITECT Plan of Treatment Date Type Specialty Care Team Description 04/18/2020 Office Visit Hepatology Brent Gloria MD [address] [address] 0 [phone] Health Maintenance Due Date Last Done Comments [...] cirrhosis type (HCC) SALCIDO (dyspnea on exertion) GGT Routine 03/06/2020 7:53 [...] 09/23/2019 9:14 Result s for this AM [employer]HERE ARCHITECT procedure are i n the results section. IMMUNOGLOBULIN G, A, M Routine 09/23/2019 9:14 R esults for this AM [employer]HERE ARCHITECT procedure are i n the results section. CBC WITH PLATELET AND Routine 09/23/2019 9:14 Re sults for this DIFFERENTIAL AM [employer] ARCHITECT procedure are i n the results section. PROTHROMBIN TIME WITH Routine 09/23/2019 9:14 Re sults for this INR AM WE[employer]SPHERE ARCHITECT procedure are i n the results section. COMPREHENSIVE METABOLIC Routine 09/23/2019 9:14 Results for this PANEL AM [employer] ARCHITECT procedure are i n the results section. PLATELET ESTIMATION Routine 07/01/2019 12:00 Resu lts for this (NOT ORDERABLE) AM [employer] ARCHITECT procedure ar e in the results section. PROTHROMBIN TIME WITH Routine 07/01/2019 12:00 Cirrhosis of li [place] Results for this INR AM WEBSPHERE ARCHITECT without ascites, procedure a re in unspecified hepatic the resu lts cirrhosis type section. (HCC) Abnormal LFTs COMPREHENSIVE METABOLIC Routine 07/01/2019 12:00 Cirrhosis of liver Results for this PANEL AM [employer]SPHERE ARCHITECT without ascites, procedure a re in unspecified hepatic the resu lts cirrhosis type section. (HCC) Abnormal LFTs CBC WITH PLATELET AND Routine 07/01/2019 12:00 Cirrhosis of li [place] Results for this DIFFERENTIAL AM [employer]HERE ARCHITECT without ascites, procedure a re in unspecified hepatic the resu lts cirrhosis type section. (HCC) Abnormal LFTs ALPHA FETOPROTEIN Routine 07/01/2019 12:00 Cirrhosis of liver Results for this AM [employer]SPHERE ARCHITECT without ascites, procedure a re in unspecified hepatic the resu lts cirrhosis type section. (HCC) Abnormal LFTs after 04/11/2019 Results Prothrombin time with INR (03/16/2020 8:54 AM CDT)Only the most recent of5 resultswithin the time period is included. INR 1.5 (H) [facility] Comment: [facility] Reference Range 0.9-1.1 Moderate-intensity Warfarin Therapy 2.0-3.0 Higher-intensity Warfarin Therapy 3.0-4.0 Prothrombin time 15.1 (H) 9.0 - 11.5 [facility] Comment: geraldo CASON For more information on this test, go to: http://[email or web address].Aprovecha.com/[email or web address] Specimen Blood Narrative Performed At FASTING:YES [facility] FASTING: YES Resulting Agency Comment Performing Organization Information: Site ID: [id number] Name: [facility] Rhonda victor Address: [address] [place] [phone] Director: Juan Gil Performing Organization Address City/State/Zipcode Phone Number [facility] [address] [address] CBC with platelet and differential (03/16/2020 8:54 AM CDT)Only the most recent of5 resultswithin the time period is included. WBC 6.5 3.8 - 10.8 [facility] Thousand/uL [place] RBC 3.05 (L) 3.80 - 5.10 [facility] Million/uL [place] HGB 10.5 (L) 11.7 - 15.5 [facility] g/dL [place] HCT 30.3 (L) 35.0 - 45.0 % [facility] [place] MCV 99.3 80.0 - 100.0 fL [facility] [place] MCH 34.4 (H) 27.0 - 33.0 pg [facility] [place] MCHC 34.7 32.0 - 36.0 [facility] g/dL [place] RDW 13.5 11.0 - 15.0 % [facility] [place] Platelet count 86 (L) 140 - 400 [facility] Thousand/uL [place] MPV 9.6 7.5 - 12.5 fL [facility] [place] Neutrophils, absolute 4,784 1,500 - 7,800 [facility] cells/uL [place] Lymphocytes, absolute 878 850 - 3,900 [facility] cells/uL [place] Monocytes, absolute 585 200 - 950 [facility] cells/uL [place] Eosinophils, absolute 221 15 - 500 [facility] cells/uL [place] Basophils, absolute 33 0 - 200 [facility] cells/uL [place] Neutrophils 73.6 % [facility] [place] Lymphocytes 13.5 % [facility] [place] Monocytes 9.0 % [facility] [place] Eosinophils 3.4 % [facility] [place] Basophils + RC 0.5 % [facility] [place] Specimen Blood Narrative Performed At FASTING:YES [facility] FASTING: YES Resulting Agency Comment Performing Organization Information: Site ID: [id number] Name: [facility] Rhonda victor Address: [address] [place] [phone] Director: Juan Gil Performing Organization Address City/State/Zipcode Phone Number MINDY [facility] [place] [phone] Comprehensive metabolic panel (03/16/2020 8:54 AM CDT)Only the most recent of5 resultswithin the time period is included. Glucose 63 (L) 65 - 99 [facility] Comment: mg/dL [facility] Fasting reference interval BUN 23 7 - 25 mg/dL [facility] [place] Creatinine 1.23 (H) 0.50 - 0.99 [facility] Comment: mg/dL [facility] For patients >49 years of age, the reference limit for Creatinine is approximately 13% higher for people identified as -[place]. EGFR Non-Afr. 47 (L) > OR = 60 [facility] [place] mL/min/1.73m [facility] 2 EGFR 55 (L) > OR = 60 [facility] [place] mL/min/1.73m [facility] 2 BUN/creatinine 19 6 - 22 [facility] ratio (calc) [facility] Sodium 138 135 - 146 [facility] mmol/L [place] Potassium 3.9 3.5 - 5.3 [facility] mmol/L [place] Chloride 102 98 - 110 [facility] mmol/L [place] CO2 30 20 - 32 [facility] mmol/L [place] Calcium 8.4 (L) 8.6 - 10.4 [facility] mg/dL [place] Protein 6.4 6.1 - 8.1 [facility] g/dL [place] Albumin, S 2.8 (L) 3.6 - 5.1 [facility] g/dL [place] Globulin, total 3.6 1.9 - 3.7 [facility] g/dL (calc) [place] Albumin/globulin 0.8 (L) 1.0 - 2.5 [facility] ratio (calc) [facility] Total bilirubin 2.2 (H) 0.2 - 1.2 [facility] mg/dL [place] Alkaline 46 37 - 153 U/L [facility] phosphatase [facility] AST 23 10 - 35 U/L [facility] [place] ALT 8 6 - 29 U/L [facility] [place] Specimen Blood Narrative Performed At FASTING:YES [facility] FASTING: YES Resulting Agency Comment Performing Organization Information: Site ID: [id number] Address: [address] [place] [phone] Director: Juan Gil Performing Organization Address City/State/Zipcode Phone Number [facility] [address] [address] B natriuretic peptide (03/06/2020 7:53 AM CDT) Pathologist Sig nature BNP 29 <100 pg/mL [facility] Comment: [facility] BNP levels increase with age in the general population with the highest values seen in individuals greater than 75 years of age. Reference: J. Am. Taylor. Cardiol. 2002; 40:976-982. Specimen Blood Narrative Performed At FASTING:YES [facility] PATIENT REFUSED SOME TESTING; PATIENT EN COURAGED TO RETURN. FASTING: YES Resulting Agency Comment Performing Organization Information: Site ID: [id number] Name: [facility] Address: [address] [place] [phone] Director: Juan Gil Performing Organization Address [facility] Cent[facility] Phone Number [facility] [address] [address] Hemoglobin A1c (03/06/2020 7:53 AM CDT) Hemoglobin A1C 6.3 (H) <5.7 % of [facility] Comment: total Hgb [facility] For someone without known diabetes, a hemoglobin [...] Performing Organization Information: Site ID: [id number] Name: [facility] Address: [address] [place] [phone] Director: Juan Gil Performing Organization Address [facility] Cent[facility]ode [place] [address] GGT (03/06/2020 7:53 AM CDT)Only the most recent of2 resultswithin the time period is included. Pathologist [facility] GGT 18 3 - 65 U/L [facility] Specimen Blood Narrative Performed At FASTING:YES MINDY PATIENT REFUSED SOME TESTING; PATIENT EN COURAGED TO RETURN. FASTING: YES Resulting Agency Comment Performing Organization Information: Site ID: [id number] Name: [facility] Address: [address] [place] [phone] Director: Juan Gil Performing Organization Address [facility] Centercode [place] [address] Immunoglobulin G, A, M (01/31/2020 8:08 AM CDT)Only the most recent of2 results within the time period is included. Pathologist Sig [facility] IgA 818 (H) 70 - 320 mg/dL [facility] [place] IgG 1,920 (H) 600 - 1,540 mg/dL [facility] IgM 60 50 - 300 mg/dL [facility] Specimen Blood Narrative Performed At FASTING:YES [facility] FASTING: YES Resulting Agency Comment Performing Organization Information: Site ID: [id number] Name: [facility] Address: [address] [place] [phone] Director: Juan Gil Performing Organization Address [facility] Centercode Phone Number [facility] [address] [place] [phone] Alpha fetoprotein (09/23/2019 9:14 AM WEB[employer]HERE ARCHITECT)Only the most recent of2 results within the [...] Performing Organization Information: Site ID: [id number] [facility]: [facility] Address: [address] [place] [phone] Director: Dr. Juan allen Performing Organization Address [facility] Centercode Phone Number [facility] [address] [address] Platelet estimation (07/01/2019 12:00 AM WEBSPHERE ARCHITECT) Pathologist Sig nature Platelet estimate DECREASED (A) ADEQUATE [facility] [place] Specimen Narrative Performed At FASTING:YES [facility] FASTING: YES Resulting Agency Comment Performing Organization Information: Site ID: [id number] [facility]: [facility] Address: [address] [place] [phone] Director: Juan Gil Performing Organization Address City/[facility]/Zipcode Phone Number [facility] [place] [address] [place] [phone] after 04/11/2019 Advance Directives For more information, please contact: [phone] Type Date Recorded Patient Process Inspector Explanati on Advance Directives, Living Will and Medical Power of Floor Inspector
[2020-04-11] MEDS ORDERED: SCOPOLAMINE HYDROBROMIDE PATCH TD SCH (20:00)
[2020-04-11] MEDS: LORazepam 2 MG/ML VIAL IV PRN ×2 (20:43→23:00)
[2020-04-11] MEDS: MORPHINE 2 MG/ML SYR IV PRN (20:51)
--- NOTE | 2020-04-11 21:00 | P.HP ---
Certification for Inpatient Patient admitted to: Inpatient With expected LOS: >2 Midnights Practitioner: I am a practitioner with admitting privileges, knowledge of patient current condition, hospital course, and medical plan of care. Services: Services provided to patient in accordance with Admission requirements found in Title 42 Section 412.3 of the Code of Federal Regulations Patient History Date of Service: 04/11/20 Reason for admission: COMATOSE STATUS History of Present Illness: MS. MATHEW IS TERMINAL FROM HEPATIC ENCEHALOPATHY. SHE HAS NOT SHOWN ANY SIGNS OF IMPROVEMENT FROM COMATOSE STATUS WITH AGITATION FOR LAST 4 DAYS. SHE CAME IN WITH RESPIRATORY DISTRESS, CODED, HAD CPR. SHE HAS PNEUMONIA, FLUID OVERLOAD FROM CIRRHOSIS OF LIVER, CONFUSION AND COMATOSE STATUS FROM ENCEPHLOPATHY THAT DID NOT IMPROVE USING LACTULOSE, XIFAXAN AND SUPPORTIVE CARE. I HAD ROUTINE DISCUSSION WITH AND TWO BROTHERS. THEY AGREED AND MADE HER DNR AND WANTED TO KEEP HER COMFORTABLE WITH HOSPICE PROTOCOL. Allergies loperamide [From Imodium A-D] Allergy (Verified 11/17/18 07:28) Hives Penicillins Allergy (Verified 11/17/18 07:28) Anaphylaxis Home Medications: Glimepiride [Amaryl] 4 mg PO DAILY 07/10/15 Metformin HCl [Metformin HCl ER] 1,000 mg PO BID 07/10/15 carvediloL [Coreg] 12.5 mg PO DAILY 07/21/18 Furosemide 20 mg PO DAILY 04/03/20 Irbesartan/Hydrochlorothiazide [Avalide 150-12.5 mg Tablet] 1 each PO DAILY 04/03/20 Levothyroxine Sodium [Synthroid] 137 mcg PO [id number] 04/03/20 Spironolactone 50 mg PO DAILY 04/03/20 Trazodone [Desyrel] 100 mg PO BEDTIME PRN 04/03/20 - Past Medical/Surgical History Diabetic: Yes -: non-alcoholic cirrhosis -: NIDDM -: HTN -: hysterectomy - Social History Alcohol use: No CD- Drugs: No Caffeine use: Yes Review of Systems is unable to be obtained Physical Examination - Vital Signs Respirations: 18 - Physical Exam General: Severe distress, Comatose (AGITATED AND RESTLESS BUT UNRESPONSIVE TO VERBAL COMMAND, PAINFUL COMMAND.), Obese HEENT: Other Neck: Supple, 2+ carotid pulse no bruit, No LAD, Without JVD or thyroid abnormality Respiratory: Diminished Cardiovascular: Regular rate/rhythm, Normal S1 S2 Gastrointestinal: Normal bowel sounds, No tenderness Musculoskeletal: No tenderness Integumentary: No rashes, Other (ECCHYMOSIS) Lymphatics: No axilla or inguinal lymphadenopathy Assessment and Plan - Problems (Diagnosis) (1) Heparin induced thrombocytopenia Current Visit: No Status: Acute Plan: WORSE FROM USE OF HEPARIN FOR HD WE HAD TO. (2) Hepatic encephalopathy Current Visit: No Status: Acute Plan: SHE IS TERMINAL FROM THIS FROM CIRRHOSIS, RENAL FAILURE AND RESPIRATORY FAILURE. - Advance Directives Does patient have a Living Will: No Does patient have a Durable POA for Healthcare: No
[2020-04-11 23:54] VITALS: BMI 40.3
[2020-04-12 00:05] VITALS: O2SAT 92
[2020-04-12] MEDS: MORPHINE 2 MG/ML SYR IV PRN ×3 (02:17→10:04)
[2020-04-12] MEDS: LORazepam 2 MG/ML VIAL IV PRN ×4 (02:17→10:05)
[2020-04-12 10:41] VITALS: BP 140/65; TEMP 97
--- NOTE | 2020-04-12 21:17 | P.DS ---
Admission Date: 04/11/20 Discharge Date: 04/12/20 Disposition: Discharge Condition: Reason for Admission: COMATOSE STATUS - Problems (1) Heparin induced thrombocytopenia Status: Acute (2) Hepatic encephalopathy Status: Acute Brief History of Present Illness: MS. MATHEW IS TERMINAL FROM HEPATIC ENCEHALOPATHY. SHE HAS NOT SHOWN ANY SIGNS OF IMPROVEMENT FROM COMATOSE STATUS WITH AGITATION FOR LAST 4 DAYS. SHE CAME IN WITH RESPIRATORY DISTRESS, CODED, HAD CPR. SHE HAS PNEUMONIA, FLUID OVERLOAD FROM CIRRHOSIS OF LIVER, CONFUSION AND COMATOSE STATUS FROM ENCEPHLOPATHY THAT DID NOT IMPROVE USING LACTULOSE, XIFAXAN AND SUPPORTIVE CARE. I HAD ROUTINE DISCUSSION WITH AND TWO BROTHERS. THEY AGREED AND MADE HER DNR AND WANTED TO KEEP HER COMFORTABLE WITH HOSPICE PROTOCOL. Hospital Course: MS. MATHEW EXPECTED AFTER BEING COMATOSE FOR 5 DAYS FROM HEPATIC ENCEPHALOPATHY. Vital Signs/Physical Exam: Temp Pulse Resp BP Pulse Ox 97.0 F 71 18 140/65 93 04/12/20 08:00 04/12/20 08:00 04/12/20 10:34 04/12/20 08:00 04/12/20 08:00 Laboratory Data at Discharge: Plt Count Cancelled 04/12/20 06:30 Home Medications: Glimepiride [Amaryl] 4 mg PO DAILY 07/10/15 Metformin HCl [Metformin HCl ER] 1,000 mg PO BID 07/10/15 carvediloL [Coreg] 12.5 mg PO DAILY 07/21/18 Furosemide 20 mg PO DAILY 04/03/20 Irbesartan/Hydrochlorothiazide [Avalide 150-12.5 mg Tablet] 1 each PO DAILY 04/03/20 Levothyroxine Sodium [Synthroid] 137 mcg PO [id number] 04/03/20 Spironolactone 50 mg PO DAILY 04/03/20 Trazodone [Desyrel] 100 mg PO BEDTIME PRN 04/03/20
== END 2020-04-12 16:05 | disposition expired | DRG 951 ==
LOC: 2ND 19:54
PROVIDERS: ADMIT Internal Medicine; ATTEND Internal Medicine
DX: Z51.5 Encounter for palliative care (principal); K72.01 Acute and subacute hepatic failure with coma; J18.9 Pneumonia, unspecified organism; Z68.41 Body mass index [BMI] 40.0-44.9, adult; E66.9 Obesity, unspecified; D75.82 Heparin induced thrombocytopenia (HIT); E87.70 Fluid overload, unspecified; I10 Essential (primary) hypertension; E11.9 Type 2 diabetes mellitus without complications; K74.60 Unspecified cirrhosis of liver; Z66 Do not resuscitate; Z88.0 Allergy status to penicillin; Z88.8 Allergy status to other drugs, medicaments and biological substances; Z79.84 Long term (current) use of oral hypoglycemic drugs; Z79.890 Hormone replacement therapy; Z79.899 Other long term (current) drug therapy; Z90.710 Acquired absence of both cervix and uterus
CPT/HCPCS: J2270